=== PATIENT | male | born 1980 | race Caucasian/White ===

== ENCOUNTER 2016-09-02 08:06 | Inpatient (IN) | payer OTHER ==
[2016-09-02] VITALS (7 sets, daily range): BP systolic 115–152; BP diastolic 65–86
[~2016-09-02] VITALS: Ht 152.4 cm; Wt 55.8 kg
--- NOTE | ~2016-09-02 | EKG ---
[place], [place] ELECTROCARDIOGRAM REPORT NAME: VELASQUEZ IRBY UNIT #: [id number] ROOM: [facility] DOCTOR: GABRIELLA BAILEY MD BIRTHDATE: [birth year] DOS: 09/02/2016 TIME OF STUDY: 10:19 a.m. INTERPRETATION: Sinus tachycardia with rate 115. Low voltage in standard limb leads. Rightward axis. Left atrial enlargement. Abnormal EKG. GABRIELLA BAILEY MD CM:EKGRPT:ELECTROCARDIOGRAM REPORT 1702 1717 GABRIELLA BAILEY MD
[~2016-09-02 08:06] MED LIST: ACETAMINOPHEN-H1 TA2 PO; AMLODIPINE BESYL5 MG PO; AMOXICILLIN500 MG PO; ANAPROX DS550 MG PO; ATIVAN0.5 MG PO; AUGMENTIN 875 M1 TAB PO; BACTRIM DS 8001 TA1 PO; BENTYL10 MG PO; CELEXA10 MG PO; CEPHALEXIN500 M1 PO; CIPRO500 MG PO; CIPROFLOXACIN500 MG PO; CLARITIN10 MG PO; CLINDAMYCIN HC300 MG PO; COMPAZINE10 MG PO; Cleocin150 MG PO; DOXYCYCLINE100 M3 PO; FLAGYL500 MG PO; FLEXERIL10 MG PO; FLONASE0.05 MG/AC NS; GABAPENTIN800 MG PO; HUMALOG100 U/ML SC; HUMULIN N100 U/ML SC; HUMULIN R100 U/ML SC; K-DUR20 MEQ PO; KEFLEX500 M1 PO; LANTUS100 U/ML SC; LEVAQUIN750 M1 PO; LISINOPRIL5 MG PO; LOMOTIL 0.025 M1 TA1 PO; LOMOTIL 0.025 M1 TAB PO; MOTRIN800 MG PO; NEURONTIN800 MG PO; NOVOLOG FLEX100 U/ML SC; NOVOLOG MIX 70/10 ML SC; PHENERGAN12.5 M1 PO; PHENERGAN25 M1 PO; PHENERGAN25 MG RC; PRILOSEC20 MG PO; PROTONIX40 M1 PO; Phenergan25 MG PO; REGLAN; REGLAN PO; REGLAN10 MG PO; ROBAXIN750 MG PO; TRAMADOL HCL50 MG PO; TRANSDERM0.33 MG/24 TD; ULTRAM50 MG PO; VICODIN 5/500 505 MG PO; ZANTAC150 MG PO; ZITHROMAX Z PA250 MG PO; ZOFRAN ODT4 MG SL; ZOFRAN4 MG PO; ZYRTEC10 MG PO; Zofran4 MG PO; [UNRECOGNIZED DRUG - OTHER] PO
[2016-09-02 08:48] LABS: BASO % 0.4 % (0.0-1.0); EOS % 0.1 % (1.0-4.0); HEMATOCRIT 40.9 % (42.0-52.0); HEMOGLOBIN 13.1 g/dl (14.0-18.0); LYMPH # 1.1 10*3/uL (1.3-4.4); LYMPH % 12.5 % (27.0-41.0); MEAN CELL VOLUME 88.9 fl (80.0-94.0); MEAN CORPUSCULAR HGB 28.5 pg (27.0-31.0); MONO # 0.6 10*3/uL (0.1-1.0); MONO % 7.1 % (3.0-9.0); NEUT # 6.8 10*3/uL (2.3-7.9); NEUT % 79.5 % (47.0-73.0); PLATELET COUNT AUTOMATED 358 10*3/uL (130-400); RED CELL DISTRI WIDTH 13.9 % (0-14.5); WHITE BLOOD COUNT 8.5 10*3/uL (4.8-10.8)
[2016-09-02 08:56] LABS: PROTHROMBIN TIME 10.5 SECONDS (9.0-12.4)
[2016-09-02 09:00] LABS: BILIRUBIN NEGATIVE (NEGATIVE); BLOOD 1+ (NEGATIVE); CLARITY CLEAR (CLEAR); COLOR YELLOW (YELLOW); GLUCOSE 3+ (NEGATIVE); KETONE 3+ (NEGATIVE); LEUKO ESTERASE NEGATIVE (NEGATIVE); NITRITE NEGATIVE (NEGATIVE); PROTEIN 1+ (NEGATIVE); SPECIFIC GRAVITY 1.015 (1.005-1.030); UROBILINOGEN 0.2 E.U./dl (0.2-1.0)
[2016-09-02 09:06] LABS: ALBUMIN 3.6 gm/dl (3.1-4.5); ALKALINE PHOSPHATASE 210 U/L (45-117); BILIRUBIN, TOTAL 0.5 mg/dl (0.2-1.0); BUN 32 mg/dl (7-24); C-REACTIVE PROTEIN 2.33 MG/DL (0-0.3); CARBON DIOXIDE 17 mmol/L (21-32); CHLORIDE 96 mmol/L (98-107); CKMB 1.2 ng/ml (0.5-3.6); CPK 47 U/L (39-308); EST GLOM FILT AFRICAN AMERICAN 56 ml/min; MAGNESIUM 2.7 mg/dL (1.5-2.1); POTASSIUM 4.8 mmol/L (3.5-5.1); SGOT/AST 16 IU/L (3-35); SGPT/ALT 27 U/L (12-78); SODIUM 135 mmol/L (136-145); TOTAL PROTEIN 8.6 gm/dL (6.4-8.2)
[2016-09-02 09:10] LABS: GLUCOSE 653 mg/dL (65-99); TROPONIN I < 0.015 ng/ml (<0.045)
[2016-09-02 09:15] LABS: URINE REFLEX COMMENT YES (NO); WBC 0-2 wbc/hpf (0-5)
[2016-09-02 12:25] LABS: CKMB 1.1 ng/ml (0.5-3.6); CPK 42 U/L (39-308)
[2016-09-02 12:32] LABS: TROPONIN I < 0.015 ng/ml (<0.045)
[2016-09-02 15:45] LABS: URINE AMPHETAMINES < 1000 (1000ng/ml); URINE BARBITURATES < 200 (200ng/ml); URINE COCAINE > 300 (300ng/ml)
[2016-09-02 18:02] LABS: BUN 28 mg/dl (7-24); CARBON DIOXIDE 21 mmol/L (21-32); CHLORIDE 115 mmol/L (98-107); CKMB 0.8 ng/ml (0.5-3.6); CPK 44 U/L (39-308); EST GLOM FILT AFRICAN AMERICAN > 60 ml/min; GLUCOSE 137 mg/dL (65-99); POTASSIUM 4.2 mmol/L (3.5-5.1)
[2016-09-02 18:05] LABS: SODIUM 148 mmol/L (136-145); TROPONIN I < 0.015 ng/ml (<0.045)
[2016-09-03] VITALS: BP 120/82
[2016-09-03 04:00] VITALS: BP 135/78
[2016-09-03 05:39] LABS: ALBUMIN 2.8 gm/dl (3.1-4.5); ALKALINE PHOSPHATASE 139 U/L (45-117); BILIRUBIN, TOTAL 0.3 mg/dl (0.2-1.0); BUN 23 mg/dl (7-24); CARBON DIOXIDE 23 mmol/L (21-32); CHLORIDE 112 mmol/L (98-107); CHOLESTEROL 191 mg/dL (<200); EST GLOM FILT AFRICAN AMERICAN > 60 ml/min; GLUCOSE 238 mg/dL (65-99); HDL CHOLESTEROL 37 mg/dl (40-60); LDL CHOLESTEROL 126 mg/dL (9-159); PHOSPHOROUS 1.8 mg/dL (2.5-4.9); POTASSIUM 3.9 mmol/L (3.5-5.1); SGOT/AST 15 IU/L (3-35); SGPT/ALT 19 U/L (12-78); SODIUM 144 mmol/L (136-145); TOTAL PROTEIN 6.6 gm/dL (6.4-8.2); TRIGLYCERIDES 139 mg/dl (<150); VLDL CHOLESTEROL 28 mg/dL (6-40)
[2016-09-03 05:54] LABS: BASO # 0.1 10*3/uL (0.0-0.1); BASO % 0.5 % (0.0-1.0); EOS # 0.2 10*3/uL (0.0-0.4); EOS % 1.8 % (1.0-4.0); LYMPH # 2.6 10*3/uL (1.3-4.4); LYMPH % 20.7 % (27.0-41.0); MEAN CELL VOLUME 89.6 fl (80.0-94.0); MEAN CORPUSCULAR HGB CONC 31.2 g/dl (33.0-37.0); MEAN PLATELET VOLUME 10.6 fl (9.6-12.3); MONO % 7.7 % (3.0-9.0); NEUT # 8.5 10*3/uL (2.3-7.9); NEUT % 69.1 % (47.0-73.0); PLATELET COUNT AUTOMATED 348 10*3/uL (130-400); RED BLOOD COUNT 3.86 10*6/uL (4.50-5.90); RED CELL DISTRI WIDTH 14.2 % (0-14.5); WHITE BLOOD COUNT 12.3 10*3/uL (4.8-10.8)
[2016-09-03 06:36] LABS: HEMATOCRIT 34.6 % (42.0-52.0); HEMOGLOBIN 10.8 g/dl (14.0-18.0)
[2016-09-03 07:17] LABS: HEMOGLOBIN A1c 10.4 % (4.8-5.6)
[2016-09-03 08:00] VITALS: BP 140/76
[2016-09-03 08:03] LABS: FOLIC ACID 16.99 ng/mL (>5.38); VITAMIN D, 25-HYDROXY 27.6 ng/mL (30-100)
[2016-09-03 12:00] VITALS: BP 130/70
== END 2016-09-03 17:31 | disposition left against medical advice (07) | DRG 682 ==
LOC: ED 08:06 → EDHOLD 10:07 → ICCU 10:40 → 5E 09-03 12:44
PROVIDERS: Emergency Medicine; Internal Medicine
DX: N17.9 Acute kidney failure, unspecified (principal); E10.10 Type 1 diabetes mellitus with ketoacidosis without coma; E87.8 Other disorders of electrolyte and fluid balance, not elsewhere classified; K31.84 Gastroparesis; L03.116 Cellulitis of left lower limb; F33.9 Major depressive disorder, recurrent, unspecified; E10.42 Type 1 diabetes mellitus with diabetic polyneuropathy; L02.612 Cutaneous abscess of left foot; E86.0 Dehydration; E10.43 Type 1 diabetes mellitus with diabetic autonomic (poly)neuropathy; F14.10 Cocaine abuse, uncomplicated; Z53.21 Procedure and treatment not carried out due to patient leaving prior to being seen by health care provider; K02.9 Dental caries, unspecified; N18.9 Chronic kidney disease, unspecified; Z90.49 Acquired absence of other specified parts of digestive tract; Z83.3 Family history of diabetes mellitus; Z87.01 Personal history of pneumonia (recurrent); Z82.49 Family history of ischemic heart disease and other diseases of the circulatory system; Z91.19 Patient's noncompliance with other medical treatment and regimen; Z80.9 Family history of malignant neoplasm, unspecified

== ENCOUNTER → 2016-09-06 | Outpatient (CLI) | payer OTHER ==
[~2016-09-06] MED LIST changes: +LEVOFLOXACIN750 M2 PO; +SMZ-TMP 400 MG-1 TAB PO
== END | disposition home or self-care (01) ==
LOC: RESCLI 03:55
DX: E10.9 Type 1 diabetes mellitus without complications (principal); I10 Essential (primary) hypertension; L03.90 Cellulitis, unspecified; G62.9 Polyneuropathy, unspecified; R00.0 Tachycardia, unspecified; M79.604 Pain in right leg; Z72.0 Tobacco use; Z90.49 Acquired absence of other specified parts of digestive tract

== ENCOUNTER 2016-09-08 14:51 | Inpatient (IN) | payer OTHER ==
[~2016-09-08] VITALS: Ht 165.1 cm; Wt 59.0 kg
--- NOTE | ~2016-09-08 | WRIGHTHP ---
[place], [place] PATIENT HISTORY AND PHYSICAL EXAM NAME: VELASQUEZ IRBY UNIT #: [id number] ROOM: H2014 DOCTOR: REGAN OLIVERA DO BIRTHDATE: [birth year] DOS: 09/08/2016 The patient left AMA from the emergency room and was never admitted as an inpatient. REGAN OLIVERA DO CM:PHYS:PATIENT HISTORY AND PHYSICAL EXAMINATION 1758 15 REGAN OLIVERA DO 09/08/16 181 interface
[~2016-09-08 14:51] MED LIST changes: -LEVOFLOXACIN750 M2 PO; -SMZ-TMP 400 MG-1 TAB PO
[2016-09-08 15:20] VITALS: BP 124/80
[2016-09-08] MEDS ORDERED: LEVOFLOXACIN750 M2 PO (15:20)
[2016-09-08] MEDS ORDERED: SMZ-TMP 400 MG-1 TAB PO (15:20)
[2016-09-08 15:53] LABS: BASO % 0.3 % (0.0-1.0); EOS # 0.3 10*3/uL (0.0-0.4); EOS % 3.8 % (1.0-4.0); HEMATOCRIT 39.2 % (42.0-52.0); HEMOGLOBIN 12.6 g/dl (14.0-18.0); LYMPH # 1.7 10*3/uL (1.3-4.4); LYMPH % 22.4 % (27.0-41.0); MEAN CELL VOLUME 87.9 fl (80.0-94.0); MEAN CORPUSCULAR HGB 28.3 pg (27.0-31.0); MEAN CORPUSCULAR HGB CONC 32.1 g/dl (33.0-37.0); MONO # 0.8 10*3/uL (0.1-1.0); MONO % 10.6 % (3.0-9.0); NEUT # 4.6 10*3/uL (2.3-7.9); NEUT % 62.4 % (47.0-73.0); PLATELET COUNT AUTOMATED 319 10*3/uL (130-400); RED BLOOD COUNT 4.46 10*6/uL (4.50-5.90); RED CELL DISTRI WIDTH 13.8 % (0-14.5); WHITE BLOOD COUNT 7.4 10*3/uL (4.8-10.8)
[2016-09-08 16:08] LABS: ALBUMIN 3.4 gm/dl (3.1-4.5); ALKALINE PHOSPHATASE 189 U/L (45-117); BILIRUBIN, TOTAL 0.2 mg/dl (0.2-1.0); BUN 15 mg/dl (7-24); CARBON DIOXIDE 29 mmol/L (21-32); CHLORIDE 93 mmol/L (98-107); EST GLOM FILT AFRICAN AMERICAN > 60 ml/min; POTASSIUM 4.7 mmol/L (3.5-5.1); SGOT/AST 13 IU/L (3-35); SGPT/ALT 21 U/L (12-78); SODIUM 130 mmol/L (136-145); TOTAL PROTEIN 7.9 gm/dL (6.4-8.2)
[2016-09-08 16:10] LABS: GLUCOSE 506 mg/dL (65-99)
== END 2016-09-08 17:59 | disposition left against medical advice (07) | DRG 638 ==
LOC: ED 14:51 → EDHOLD 17:12
PROVIDERS: Nurse Practitioner Family
DX: E10.65 Type 1 diabetes mellitus with hyperglycemia (principal); K22.10 Ulcer of esophagus without bleeding; K31.84 Gastroparesis; E10.43 Type 1 diabetes mellitus with diabetic autonomic (poly)neuropathy; S91.302A Unspecified open wound, left foot, initial encounter; F17.200 Nicotine dependence, unspecified, uncomplicated; Z53.21 Procedure and treatment not carried out due to patient leaving prior to being seen by health care provider; G89.29 Other chronic pain; M54.5 Low back pain; F32.9 Major depressive disorder, single episode, unspecified; Z83.3 Family history of diabetes mellitus; Z82.49 Family history of ischemic heart disease and other diseases of the circulatory system; Z90.49 Acquired absence of other specified parts of digestive tract; Z79.4 Long term (current) use of insulin; Z91.14 Patient's other noncompliance with medication regimen

== ENCOUNTER 2016-09-10 17:59 | Emergency (ER) | payer OTHER ==
[~2016-09-10] VITALS: Ht 165.1 cm; Wt 59.0 kg
[~2016-09-10 17:59] MED LIST changes: +LEVOFLOXACIN750 M2 PO; +SMZ-TMP 400 MG-1 TAB PO
[2016-09-10 18:15] LABS: BASO % 0.3 % (0.0-1.0); EOS # 0.4 10*3/uL (0.0-0.4); EOS % 2.8 % (1.0-4.0); HEMATOCRIT 41.2 % (42.0-52.0); HEMOGLOBIN 13.4 g/dl (14.0-18.0); IG # 0.1 10*3/uL (0.0-0.1); LYMPH # 2.7 10*3/uL (1.3-4.4); LYMPH % 19.9 % (27.0-41.0); MEAN CELL VOLUME 86.9 fl (80.0-94.0); MEAN CORPUSCULAR HGB 28.3 pg (27.0-31.0); MEAN CORPUSCULAR HGB CONC 32.5 g/dl (33.0-37.0); MONO # 1.1 10*3/uL (0.1-1.0); MONO % 7.9 % (3.0-9.0); NEUT # 9.2 10*3/uL (2.3-7.9); NEUT % 68.7 % (47.0-73.0); PLATELET COUNT AUTOMATED 404 10*3/uL (130-400); RED BLOOD COUNT 4.74 10*6/uL (4.50-5.90); RED CELL DISTRI WIDTH 13.6 % (0-14.5); WHITE BLOOD COUNT 13.4 10*3/uL (4.8-10.8)
[2016-09-10 18:30] LABS: ALBUMIN 3.7 gm/dl (3.1-4.5); ALKALINE PHOSPHATASE 203 U/L (45-117); BILIRUBIN, TOTAL 0.3 mg/dl (0.2-1.0); BUN 19 mg/dl (7-24); CARBON DIOXIDE 29 mmol/L (21-32); CHLORIDE 96 mmol/L (98-107); EST GLOM FILT AFRICAN AMERICAN > 60 ml/min; GLUCOSE 145 mg/dL (65-99); POTASSIUM 4.4 mmol/L (3.5-5.1); SGOT/AST 10 IU/L (3-35); SGPT/ALT 18 U/L (12-78); SODIUM 136 mmol/L (136-145); TOTAL PROTEIN 8.4 gm/dL (6.4-8.2)
[2016-09-10] MEDS ORDERED: MIRALAX POWDER17 G1 PO (19:07)
[2016-09-10 19:09] VITALS: BP 105/75
== END 2016-09-10 19:21 | disposition home or self-care (01) ==
LOC: ED 17:59
PROVIDERS: Nurse Practitioner Family
DX: K59.00 Constipation, unspecified (principal); R03.0 Elevated blood-pressure reading, without diagnosis of hypertension; F17.200 Nicotine dependence, unspecified, uncomplicated; Z79.4 Long term (current) use of insulin; Z90.49 Acquired absence of other specified parts of digestive tract

== ENCOUNTER 2016-09-13 16:38 | Inpatient (IN) | payer OTHER ==
[~2016-09-13] VITALS: Ht 165.1 cm; Wt 59.0 kg
--- NOTE | ~2016-09-13 | CON ---
[place], [place] REPORT OF CONSULTATION NAME[id number] UNIT #: [id number] ROOM: 419 DOCTOR: STAS GEORGES MD BIRTHDATE: [birth year] DOS: 09/14/2016 CHIEF COMPLAINT: Right flank pain. REASON FOR CONSULT: Wound. HISTORY OF PRESENT ILLNESS: This is a 35-year-old man who presented to the ER for right flank pain. He has history of type 1 diabetes mellitus and chronic pain medication abuse and IV drug abuse in the past with noncompliance with medication treatment and history of leaving the hospital multiple times against medical advice, now he is coming in with abdominal pain and constipation. He had a CT of the abdomen showing a 2 mm right distal ureteral calcification. He is currently homeless and is living in [address]. He had been out of his insulin medication and had high blood sugars. He was admitted and had right flank pain with dysuria and foul smelling urine and some nausea. He was started on empiric broad spectrum antibiotics and ID was consulted. He also has left Achilles tendon ulcer with injury to the tendon, needing repair several months ago and had been on IV antibiotics under the care of [facility] for which he had received about 4 weeks of IV antibiotics in the custodial and PICC line was removed, but he did not follow up with them after that. He went to resident clinic here and was given prescriptions for antibiotics, which he did not take. He left the hospital against medical advice on his previous visit to the ER on 09/10/2016. Currently, he is feeling better. No fevers, chills, vomiting, nausea. PAST MEDICAL HISTORY: History of type 1 diabetes, cellulitis of the foot, chronic kidney disease, cocaine abuse, diabetic gastroparesis, multiple history of DKA episodes, esophageal ulcer, IV drug use history, hypertriglyceridemia, noncompliance with medications, major depressive disorder, avulsion fracture of calcaneum. PAST SURGICAL HISTORY: Chest tubes, cholecystectomy, EGD ____ tonsillectomy. SOCIAL HISTORY: Cocaine abuse, IV drug abuse, tobacco abuse. Does not drink alcohol. FAMILY HISTORY: Mother has diabetes. Father has coronary artery disease. ALLERGIES: No known drug allergies. HOME MEDICATIONS: Which he is noncompliant with were reviewed. CURRENT INPATIENT MEDICATIONS: Reviewed. REVIEW OF SYSTEMS: A 14-review of systems otherwise negative unless otherwise specified in the HPI. PHYSICAL EXAMINATION: VITAL SIGNS: Showed temperature of 98.6, heart rate 77, blood pressure 128/79, respiratory rate of 20, pulse of 100 on room air. [place], [place] REPORT OF CONSULTATION NAME: VELASQUEZ IRBY UNIT #: [id number] ROOM: 419 DOCTOR: STAS GEORGES MD BIRTHDATE: [birth year] GENERAL APPEARANCE: Awake, alert, oriented to time, place, and person, in no acute distress. HEENT: Oral cavity moist. NECK: Supple, no JVD, no lymphadenopathy. HEART: Regular rate and rhythm. S1, S2 normal. No murmurs, gallops or rubs. LUNGS: Clear bilaterally. ABDOMEN: Soft, nontender, nondistended. Bowel sounds heard. EXTREMITIES: Left lower extremity with the posterior Achilles tendon site with surgical sutures, no drainage, no purulence, dry, clean and intact. No surrounding cellulitis. SKIN: No rashes, ulcers or lesions. LABORATORY DATA: Reviewed. WBC of 14.9, hemoglobin 10.4, platelets 358. Chemistry showing BUN of 12, creatinine of 1.51, hemoglobin A1c of 10.7. MRI of the ankle showing postsurgical changes with tear of the distal Achilles tendon, soft tissue ulcerations suspected soft tissue infection in the soft tissues posterior to calcaneal tuberosity ulcer cavity touches the posterior cortical margin of the calcaneum with edema suggestive of osteomyelitis. Urinalysis reviewed. WBC too numerous to count, bacteria 2+. Renal ultrasound showed no hydronephrosis. Abdomen CT from 09/10/2016 shows nephrocalcinosis 2 mm distal ureteral calcification, posterior bladder calcifications. Past wound cultures had shown MRSA, it was from 11/18/2015. ASSESSMENT AND PLAN: 1. Possible chronic osteomyelitis of the left calcaneum, status post 6 weeks of intravenous antibiotics from outside hospital. We will obtain outside medical records, his C-reactive protein is only 2. We will obtain sed rate also and follow it along. I would stop intravenous vancomycin and intravenous Zosyn at this point. He does not have any active draining wounds to obtain a culture from. Would have to compare a previous imaging and inflammatory markers to come to a decision about treating him again with intravenous antibiotics. This osteomyelitis possibly is residual changes in the imaging from previous treatment, have to compare and see what he had been treated with in the past to see if he needs another course of intravenous antibiotics. He had Achilles tendon rupture, which needed surgery and had hardware in there, which he ruptured because of noncompliance and the hardware had to be removed and the incision was again sutured as much as repair that could be done was done by the previous surgeon, Dr. Liliana Ulloa is also following. His inflammatory markers should be repeated and we need to obtain records from outside hospital. 2. Nephrocalcinosis with concern for urinary tract infection. He has a nonobstructing stone without evidence of hydronephrosis. He had pyuria, but at that time, he had diabetic ketoacidosis. I would considering these two concerns, I would put him on a very low dose of Bactrim for chronic suppression. One double strength once daily given his chronic kidney disease and wait for the results of the inflammatory markers and records from outside hospital. Thank you for this consult. I will continue to follow. [place], [place] REPORT OF CONSULTATION NAME: VELASQUEZ IRBY UNIT #: [id number] ROOM: 419 DOCTOR: STAS GEORGES MD BIRTHDATE: [birth year] STAS GEORGES MD CM:CONSTR:REPORT OF CONSULTATION 1706 09/15/16 0416 interface
--- NOTE | ~2016-09-13 | EKG ---
[place], [place] ELECTROCARDIOGRAM REPORT NAME: VELASQUEZ IRBY UNIT #: [id number] ROOM: 419 DOCTOR: GABRIELLA BAILEY MD BIRTHDATE: [birth year] DOS: 09/13/2016 TIME: 17:02 p.m. FINDINGS: 1. Sinus tachycardia with low voltage in the standard limb leads. 2. Indeterminant axis. 3. Biatrial enlargement. 4. Nonspecific T-wave flattening. 5. Abnormal electrocardiogram. GABRIELLA BAILEY MD CM:EKGRPT:ELECTROCARDIOGRAM REPORT 02 54 GABRIELLA BAILEY MD
--- NOTE | ~2016-09-13 | WRIGHTHP ---
[place], [place] PATIENT HISTORY AND PHYSICAL EXAM NAME[id number] UNIT #: [id number] ROOM: 419 DOCTOR: JAXSON SANDHU DPM BIRTHDATE: [birth year] DOS: 09/14/2016 ROOM NUMBER: [id number]. HISTORY OF PRESENT ILLNESS: The patient seen at bedside chief complaint of both lower extremities, more so impressive ____ left one. He complains of a drop foot on his right for approximately 2 years. With respect to his left foot he relates a history ____ confusion and slightly he appears to be ____ poor historian or he states he was in ER here about 2 months ago where he states that he has pain and problems, but he states that the ER misdiagnosed him. Subsequently, he went to [facility] and from what he told me he indicated that he was told that he had an avulsion fracture of his posterior calcaneus. Supposedly, he was seen in the ER there and they referred him ____ was seen and taken care ____ apparently did a surgery that consisted of a reattachment of what appeared to be an avulsion fracture of the posterior aspect of the calcaneus on the left side. Subsequently, the patient got infected and then returned back to [place] where ____ has been to get the hardware and ____ reattached or he reattached the tendon, but the patient says he did not think so on the left posterior side; however, he ended up from what I understand in the Emergency Room here sick and as an outpatient, he went to the ER on 09/10/2016 with symptoms of pain. This started several days before that. Based on the medical records, it seems like he has had some social issues in terms of not having a place to stay and additionally he is having a bowel and urine issues as well from the previous notes. Also, according to the medical record, it appears that he was seen and the patient sees ____ who was managing his condition, but that appears like he has missed most of his appointments and it sounds like there has been past medical history with this gentleman being somewhat ____. He came to the hospital on 09/13/2016 with what sounded like a right-sided pain. I was consulted to look at his left lower extremity. PAST MEDICAL HISTORY: This patient is a diabetic. It sounds like he has been noncompliant. Sounds like he has some gastroparesis associated with his type 1 diabetic ketoacidosis associated with diabetes, esophageal ulcer, chronic noncompliance with medical treatment, hyperglycemia, former IV drug user major depressive ____. PAST SURGICAL HISTORY: He has had a left foot surgery done by ____ sounds like twice right chest tube placement for pneumothorax, history of cholecystectomy, esophagogastroduodenoscopy was performed, history of tonsillectomy. SOCIAL HISTORY: The patient does not drink alcohol and drug use and dependence of the chronic nature of IV drug use and tobacco use. FAMILY HISTORY: Mother has type 2 diabetes. Father at age 55 from myocardial infarction. Family history of cancer, diabetes, hypertension as well as myocardial infarction. ALLERGIES: No known drug allergies. HOME MEDICATIONS: Gabapentin, insulin, lisinopril. [place], [place] PATIENT HISTORY AND PHYSICAL EXAM NAME: VELASQUEZ IRBY UNIT #: [id number] ROOM: [facility] DOCTOR: JAXSON SANDHU DPM BIRTHDATE: [birth year] PHYSICAL EXAMINATION: ____: His pulses are intact, 2/4 DP, PT bilaterally. Good cap fill time. NEUROLOGICAL: He has a loss of protective sensation secondary to diabetic peripheral neuropathy. DERMATOLOGIC: On the posterior aspect of left lower extremity, he has a wound from a previous surgery site. The wound appears to be approximately a 6 cm or so in length. There is a dark eschar. It is not well coapted but there is gapping in the area. There is some peripheral erythema, inflammation. The proximal and distal sutures are intact. It seems like the central area is not. There is no evidence of drainage; undermining or tunneling that can be identified. There is a central necrosis with a dark eschar, but appears to be well contained and again there is no gross purulence or drainage identifiable. On the left posterior heel. The edema is just minimally around the surgical site itself. There is no foul odor identified. MUSCULOSKELETAL: He has a drop foot on his right. On his left he has no plantar flexion or minimal plantar flexion strength consistent of tear or detachment of the Achilles tendon, left. Orthopedic exam, he had previous avulsion fracture. I cannot find the original injury, but could see the postoperative images with the hardware in the posterior heel and then when it was taken out, it appears that there was nothing in the calcaneus at the time and probably helping him respond well this time while he is receiving IV vancomycin. IMPRESSION: Possible infection of the left posterior leg. He has a drop foot on the right. He has an open wound dehiscence on the left. PLAN: Evaluation and management. ____ the patient is a very poor historian trying to put the story together. I admitted him and have Betadine solution dry dressings applied daily to his wounds. I will order MRI to see if the Achilles tendon is attached to. ____ signs of osteomyelitis and/or soft tissue injury to this area or infection. He came in the hospital with elevated white blood count at 21,000 I believe it was, but that is not consistent when I see clinically from his ____, it does not match much because of the scar infection that he may be having infection elsewhere. ____ severe except for sepsis, urinary tract infection, cellulitis, diabetic ulcer, left lower leg, but I do not think the infection or the impressive part of this infection is coming from his left posterior leg. We will await for followup on MRI to make determination if in fact it does appear to be infected, we will go ahead and perform incision, drainage, and debridement for cultures, biopsies, but my clinical hunch is that infection is coming from elsewhere and his foot is relatively stable and ____ MRI dictate and I will proceed from here. Meantime will keep it nonweightbearing, Betadine dry dressing on his left lower extremity ____. [place], [place] PATIENT HISTORY AND PHYSICAL EXAM NAME: VELASQUEZ IRBY Lev UNIT #: [id number] ROOM: 419 DOCTOR: JAXSON SANDHU DPM BIRTHDATE: [birth year] JAXSON SANDHU DPM CM:HISPHYS:PATIENT HISTORY AND PHYSICAL EXAMINATION 1422 1640 JAXSON SANDHU DPM 09/14/16 1641 interface
--- NOTE | ~2016-09-13 | PR ---
[place], [place] PROGRESS NOTE NAME: VELASQUEZ IRBY UNIT #: [id number] ROOM: 419 DOCTOR: STAS GEORGES MD BIRTHDATE: [birth year] DOS: 09/15/2016 REASON FOR FOLLOWUP: Left Achilles tendon wound with evidence of calcaneum osteomyelitis. SUBJECTIVE: The patient is feeling better and wants to go home. No fever, no acute events overnight. REVIEW OF SYSTEMS: Review of systems otherwise negative unless specified in the HPI. PHYSICAL EXAMINATION: VITAL SIGNS: Showed a temperature of 98.2, heart rate of 92, blood pressure 153/85, respiration rate of 20, pulse ox of 97 on room air. GENERAL APPEARANCE: Awake, alert, oriented to time, place and person. No acute distress. HEENT: Oral cavity moist. NECK: Supple, no JVD, no lymphadenopathy. HEART: Regular rate and rhythm. S1, S2 normal. No murmurs, gallops or rubs. LUNGS: Clear to auscultation. Equal air entry bilaterally. ABDOMEN: Soft, nontender, nondistended. Bowel sounds heard. EXTREMITIES: Left lower extremity with wound dressing. LABORATORY DATA: Reviewed. WBC of 11, hemoglobin of 10.7, platelets 361. Chemistry showing BUN of 13, creatinine of 1.12. ASSESSMENT AND PLAN: Left Achilles tendon injury, status post repair with evidence of chronic osteomyelitis of calcaneum. He had 6 weeks of IV antibiotics for [facility]. He finished that. He has not been following up with them after that. I would continue him on chronic supression with oral Bactrim 1 double strength once daily just for his creatinine. His sed rate is still elevated at 50. Plan for 2 weeks of per oral antibiotics, follow up with myself in 2 weeks' time to repeat labs and to follow up for resolution of the symptoms of osteomyelitis. Recommendations conveyed to the primary team. Okay for discharge home with oral Bactrim 1 double strength once daily. [place], [place] PROGRESS NOTE NAME: VELASQUEZ IRBY Lev UNIT #: [id number] ROOM: 419 DOCTOR: STAS GEORGES MD BIRTHDATE: [birth year] STAS GEORGES MD CM:PNTRANS 1656 1500 STAS GEORGES MD 09/16/16 1501 interface
[~2016-09-13 16:38] MED LIST changes: +MIRALAX POWDER17 G1 PO
[2016-09-13 16:47] VITALS: BP 138/90
[2016-09-13 17:11] LABS: BASO % 0.2 % (0.0-1.0); EOS % 0.1 % (1.0-4.0); HEMATOCRIT 40.2 % (42.0-52.0); HEMOGLOBIN 13.3 g/dl (14.0-18.0); IG # 0.1 10*3/uL (0.0-0.1); LYMPH # 1.6 10*3/uL (1.3-4.4); LYMPH % 7.6 % (27.0-41.0); MEAN CELL VOLUME 86.3 fl (80.0-94.0); MEAN CORPUSCULAR HGB 28.5 pg (27.0-31.0); MEAN CORPUSCULAR HGB CONC 33.1 g/dl (33.0-37.0); MEAN PLATELET VOLUME 9.7 fl (9.6-12.3); MONO # 1.3 10*3/uL (0.1-1.0); MONO % 6.2 % (3.0-9.0); NEUT # 17.9 10*3/uL (2.3-7.9); NEUT % 85.3 % (47.0-73.0); PLATELET COUNT AUTOMATED 404 10*3/uL (130-400); RED BLOOD COUNT 4.66 10*6/uL (4.50-5.90); RED CELL DISTRI WIDTH 13.8 % (0-14.5)
[2016-09-13 17:21] LABS: PROTHROMBIN TIME 10.7 SECONDS (9.0-12.4)
[2016-09-13 17:27] LABS: ALBUMIN 3.5 gm/dl (3.1-4.5); ALKALINE PHOSPHATASE 176 U/L (45-117); BILIRUBIN, TOTAL 0.5 mg/dl (0.2-1.0); BUN 14 mg/dl (7-24); C-REACTIVE PROTEIN 2.07 MG/DL (0-0.3); CARBON DIOXIDE 24 mmol/L (21-32); CHLORIDE 97 mmol/L (98-107); EST GLOM FILT AFRICAN AMERICAN 57 ml/min; GLUCOSE 315 mg/dL (65-99); MAGNESIUM 1.9 mg/dL (1.5-2.1); POTASSIUM 4.1 mmol/L (3.5-5.1); SGOT/AST 13 IU/L (3-35); SGPT/ALT 16 U/L (12-78); SODIUM 135 mmol/L (136-145); TOTAL PROTEIN 7.8 gm/dL (6.4-8.2)
[2016-09-13 17:31] LABS: TROPONIN I < 0.015 ng/ml (<0.045)
[2016-09-13 18:09] VITALS: BP 137/89
[2016-09-13 18:14] LABS: BILIRUBIN NEGATIVE (NEGATIVE); BLOOD 3+ (NEGATIVE); CLARITY CLOUDY (CLEAR); COLOR YELLOW (YELLOW); GLUCOSE 3+ (NEGATIVE); KETONE 3+ (NEGATIVE); LEUKO ESTERASE 2+ (NEGATIVE); NITRITE NEGATIVE (NEGATIVE); PH 7.5 (5.0-9.0); PROTEIN 2+ (NEGATIVE); UROBILINOGEN 0.2 E.U./dl (0.2-1.0)
[2016-09-13 18:26] LABS: BACTERIA 2+; CALCIUM OXALATE CRYSTALS 1+; EPITHELIAL CELLS 0-2; RBC TNTC rbc/hpf (0-2); URINE REFLEX COMMENT YES (NO); WBC TNTC wbc/hpf (0-5); YEAST 2+
[2016-09-13 18:47] VITALS: BP 145/85
[2016-09-13 19:18] VITALS: BP 115/80
[2016-09-13 20:00] VITALS: BP 136/84
[2016-09-14] VITALS: BP 114/72
[2016-09-14 06:13] LABS: BASO # 0.1 10*3/uL (0.0-0.1); BASO % 0.3 % (0.0-1.0); EOS # 0.2 10*3/uL (0.0-0.4); EOS % 1.2 % (1.0-4.0); IG # 0.1 10*3/uL (0.0-0.1); LYMPH # 1.7 10*3/uL (1.3-4.4); LYMPH % 11.3 % (27.0-41.0); MEAN CELL VOLUME 88.9 fl (80.0-94.0); MEAN CORPUSCULAR HGB 28.3 pg (27.0-31.0); MEAN CORPUSCULAR HGB CONC 31.8 g/dl (33.0-37.0); MEAN PLATELET VOLUME 10.1 fl (9.6-12.3); MONO # 1.4 10*3/uL (0.1-1.0); MONO % 9.5 % (3.0-9.0); NEUT # 11.5 10*3/uL (2.3-7.9); NEUT % 77.2 % (47.0-73.0); PLATELET COUNT AUTOMATED 358 10*3/uL (130-400); RED BLOOD COUNT 3.68 10*6/uL (4.50-5.90); RED CELL DISTRI WIDTH 13.9 % (0-14.5); WHITE BLOOD COUNT 14.9 10*3/uL (4.8-10.8)
[2016-09-14 06:15] LABS: HEMATOCRIT 32.7 % (42.0-52.0); HEMOGLOBIN 10.4 g/dl (14.0-18.0)
[2016-09-14 06:22] LABS: CPK 43 U/L (39-308)
[2016-09-14 06:24] LABS: CKMB < 0.5 ng/ml (0.5-3.6); TROPONIN I < 0.015 ng/ml (<0.045)
[2016-09-14 06:47] LABS: BUN 12 mg/dl (7-24); CARBON DIOXIDE 26 mmol/L (21-32); CHLORIDE 111 mmol/L (98-107); EST GLOM FILT AFRICAN AMERICAN > 60 ml/min; FREE T4 1.01 ng/dl (0.76-1.46); GLUCOSE 51 mg/dL (65-99); HEMOGLOBIN A1c 10.7 % (4.8-5.6); MAGNESIUM 1.9 mg/dL (1.5-2.1); PHOSPHOROUS 3.5 mg/dL (2.5-4.9); POTASSIUM 3.4 mmol/L (3.5-5.1); SODIUM 145 mmol/L (136-145)
[2016-09-14 06:53] LABS: THYROID STIM HORMONE (HS) 0.257 uIU/ml (0.358-4.75)
[2016-09-14 08:00] VITALS: BP 102/61
[2016-09-14 11:44] VITALS: BP 101/69
[2016-09-14 12:13] LABS: CKMB 0.6 ng/ml (0.5-3.6); CPK 45 U/L (39-308); TROPONIN I < 0.015 ng/ml (<0.045)
[2016-09-14 15:59] VITALS: BP 128/79
[2016-09-14 20:00] VITALS: BP 147/86
[2016-09-15] VITALS: BP 119/78
[2016-09-15 06:51] LABS: BASO % 0.3 % (0.0-1.0); EOS # 0.6 10*3/uL (0.0-0.4); EOS % 5.3 % (1.0-4.0); HEMATOCRIT 33.7 % (42.0-52.0); HEMOGLOBIN 10.7 g/dl (14.0-18.0); IG # 0.1 10*3/uL (0.0-0.1); LYMPH # 2.5 10*3/uL (1.3-4.4); LYMPH % 22.7 % (27.0-41.0); MEAN CELL VOLUME 88.7 fl (80.0-94.0); MEAN CORPUSCULAR HGB 28.2 pg (27.0-31.0); MEAN CORPUSCULAR HGB CONC 31.8 g/dl (33.0-37.0); MEAN PLATELET VOLUME 9.8 fl (9.6-12.3); MONO # 0.9 10*3/uL (0.1-1.0); MONO % 8.4 % (3.0-9.0); NEUT # 6.9 10*3/uL (2.3-7.9); NEUT % 62.8 % (47.0-73.0); PLATELET COUNT AUTOMATED 361 10*3/uL (130-400); RED CELL DISTRI WIDTH 13.8 % (0-14.5)
[2016-09-15 07:23] LABS: BUN 13 mg/dl (7-24); CARBON DIOXIDE 27 mmol/L (21-32); CHLORIDE 109 mmol/L (98-107); EST GLOM FILT AFRICAN AMERICAN > 60 ml/min; GLUCOSE 52 mg/dL (65-99); MAGNESIUM 1.9 mg/dL (1.5-2.1); PHOSPHOROUS 3.8 mg/dL (2.5-4.9); POTASSIUM 3.9 mmol/L (3.5-5.1); SODIUM 144 mmol/L (136-145)
[2016-09-15 08:17] VITALS: BP 150/82
[2016-09-15 12:01] VITALS: BP 155/85
[2016-09-15] MEDS ORDERED: LANTUS100 U/ML SC (15:18)
[2016-09-15] MEDS ORDERED: SEPTRA DS 800 M1 TAB PO (15:18)
[2016-09-15] MEDS ORDERED: LISINOPRIL10 M1 PO (15:18)
[2016-09-15] MEDS ORDERED: HUMALOG100 U/ML SC (15:18)
== END 2016-09-15 16:44 | disposition home or self-care (01) | DRG 871 ==
LOC: ED 16:38 → EDHOLD 18:04 → 4E 18:04
PROVIDERS: Internal Medicine; Student in an Organized Health Care Education/Training Program
DX: A41.9 Sepsis, unspecified organism (principal); N17.0 Acute kidney failure with tubular necrosis; K22.10 Ulcer of esophagus without bleeding; E10.65 Type 1 diabetes mellitus with hyperglycemia; F33.9 Major depressive disorder, recurrent, unspecified; L89.899 Pressure ulcer of other site, unspecified stage; N39.0 Urinary tract infection, site not specified; L03.116 Cellulitis of left lower limb; F19.20 Other psychoactive substance dependence, uncomplicated; L02.91 Cutaneous abscess, unspecified; M86.672 Other chronic osteomyelitis, left ankle and foot; L02.619 Cutaneous abscess of unspecified foot; K31.84 Gastroparesis; N20.0 Calculus of kidney; D64.9 Anemia, unspecified; D47.3 Essential (hemorrhagic) thrombocythemia; M54.5 Low back pain; E78.1 Pure hyperglyceridemia; N29 Other disorders of kidney and ureter in diseases classified elsewhere; S81.802A Unspecified open wound, left lower leg, initial encounter; G89.29 Other chronic pain; S86.002A Unspecified injury of left Achilles tendon, initial encounter; F17.200 Nicotine dependence, unspecified, uncomplicated; K02.9 Dental caries, unspecified; E10.43 Type 1 diabetes mellitus with diabetic autonomic (poly)neuropathy; Z79.4 Long term (current) use of insulin; Z90.49 Acquired absence of other specified parts of digestive tract; Z83.3 Family history of diabetes mellitus; Z82.49 Family history of ischemic heart disease and other diseases of the circulatory system; Z80.9 Family history of malignant neoplasm, unspecified; Z79.899 Other long term (current) drug therapy

== ENCOUNTER 2016-10-04 13:40 | Inpatient (IN) | payer OTHER ==
[~2016-10-04] VITALS: Ht 165.1 cm; Wt 57.2 kg
--- NOTE | ~2016-10-04 | PR ---
[place], [place] PROGRESS NOTE NAME: VELASQUEZ IRBY [facility] #: [id number] UNIT #: [id number] ROOM: 525 DOCTOR: ELEUTERIO COULTER DPM BIRTHDATE: [birth year] DOS: 10/06/2016 SUBJECTIVE: The patient presents 1 day postop. The patient had surgical debridement and biopsy performed yesterday by Dr. Sena. The patient states he is having pain with the wound VAC to the surgical site. OBJECTIVE: There is apparent pain to the posterior aspect of the left heel. The patient had a venous Doppler performed yesterday, which was negative for DVT. The posterior splint and VAC are in place. Capillary refill time was normal to all digits of the left lower extremity. ASSESSMENT: Postop bone biopsy and debridement. PLAN: The patient was extremely belligerent. The patient has a history of drug abuse, and stated that he wanted to remove the wound VAC and splint as he could not sleep. The patient stated if it was not removed, he wanted stronger pain medications. Again, the patient has a history of drug abuse, and I discussed with the patient that he should not remove the posterior splint and the wound VAC. It is very important to maintain the current treatment plan to avoid loss of limb and potential loss of life. Again, the patient was extremely belligerent with a history of IV drug abuse. The patient stated he would check himself out of the hospital if pain medication was not increased. The case was discussed via telephone with Dr. Sena. Dr. Sena had ordered Toradol for the patient. The patient is already taking [place] and morphine. I believe the patient will check himself out of the hospital as he has history of extreme noncompliance along with being an IV drug abuser, and the patient is at high risk for loss of limb due to his continued noncompliance. Again, Dr. Sena wrote for followup orders, and the patient will be seen for followup, and again if the patient is not compliant, he has a very high chance of loss of limb. ELEUTERIO COULTER DPM CM:PNTRANS 1213 [id number] ELEUTERIO COULTER DPRadha 10/07/16 0131 interface
--- NOTE | ~2016-10-04 | O ---
[place], [place] OPERATIVE NOTE NAME: VELASQUEZ IRBY UNIT #: [id number] ROOM: [facility] DOCTOR: SANTOS LYONS DPMBANDAR BIRTHDATE: [birth year] DOS: 10/05/2016 SURGEON: Bandar Graham III, DPM ANESTHESIA: General. COURT ORDERLY: Lance Shen DPM. PREOPERATIVE DIAGNOSIS: Osteomyelitis with abscess, left ankle. POSTOPERATIVE DIAGNOSIS: Osteomyelitis with abscess, left ankle. PROCEDURE: I and D with bone debridement, biopsy of left heel. HEMOSTASIS: None. ESTIMATED BLOOD LOSS: 10 mL. MATERIALS: Application of wound VAC at the conclusion of the case. INJECTABLES: Approximately 30 mL of 0.5% Marcaine plain was injected in a local block type fashion at the conclusion of the case. MATERIALS: Wound VAC was applied at the conclusion of the case. FINDINGS: Consistent with preoperative diagnosis. Localized necrotic tissue was debrided and removed. The Achilles tendon was followed proximally and removed. CULTURES: Deep cultures were obtained. Bone was debrided from the posterior calcaneus and sent for both culture as well as biopsy. COMPLICATIONS: None. HISTORY OF PRESENT ILLNESS: This is a 35-year-old male who was seen as a hospital consult for an infected ulceration of the left posterior leg. MRI was performed, which showed signs suspicious for osteomyelitis as well as abscess and soft tissue gas. The patient was treated for an Achilles tendon type surgery in [place] where he left and subsequently became infected requiring admission to a [place] [facility] facility with IV antibiotics; however, the patient left AMA and the PICC line was removed. The patient failed to follow up with his surgeon in [place]. Subsequently, the patient was admitted to [place] with a leukocytosis and localized infection, prompting admission to the hospital. Again, MRI was concerning for soft tissue gas as well as infection. Therefore, the patient was consented for an I and D with bone debridement and biopsy of his left heel. All risks, benefits, complications, procedures, alternatives were discussed and all questions were answered to his apparent satisfaction. The pre, elizabeth, postoperative course was also discussed. The need for compliance is mandatory in order to ensure a satisfactory result. The patient apparently has some drug related history as well. [place], [place] OPERATIVE NOTE NAME: VELASQUEZ IRBY UNIT #: [id number] ROOM: [facility] DOCTOR: SANTOS LYONS DPMBANDAR BIRTHDATE: [birth year] PHYSICAL EXAMINATION: VASCULAR: DP and PT pulses are palpable, CFT within normal limits, mild edema to the posterior left ankle. There is mild surrounding erythema. Localized necrotic tissue was present in the depths of the wound with exposed Achilles tendon as well as exposed bone to his calcaneus. No cellulitis tracking proximally. NEUROLOGIC: Intact protective sensation. ORTHOPEDIC: Muscle strength is maintained. Decreased muscle strength at left secondary to loss of Achilles ____. PROCEDURE IN DETAIL: The patient was brought to the operating room and laid on the table in the prone position. His foot was prepped and draped in the usual sterile fashion. Pneumatic compression device was placed on the contralateral limb for DVT prophylaxis. Antibiotics were being administered on the floor; therefore, no antibiotics were administered preoperatively. Our attention was directed to the posterior aspect of his left heel where again a full-thickness wound was appreciated as well as exposed Achilles tendon and exposed bone. Full thickness excisional debridement of all nonviable tissue was performed to and through to the level of bone. A 4 cm incision was created proximal to the wound in order to remove infected Achilles tendon. The Achilles tendon was sent for pathology specimen. Deep cultures were obtained of the wound. Bone was also debrided and cultured and biopsied from the posterior aspect of his heel. At this time, it appeared that all nonviable infected soft tissue and bone had been removed. We copiously irrigated the foot with approximately 3 liters of sterile saline using cystoscopy tube drainage. At this time, we felt that it was in the patient's best interest to close part of the wound and incision and wound VAC that was remaining. Therefore, at this time, we then proceeded to close part of the wound with 0 Vicryl followed by skin closure with 2-0 Prolene both proximally and distally to the wound. There was good approximation of soft tissues. At this time, we then proceeded to apply a wound VAC to the central aspect of his wound with good suction and seal followed by posterior splint. The patient tolerated the procedure well and left the operating room with neurovascular status intact and vital signs stable. Prognosis for healing is fair as long as the patient is compliant with postoperative course. He will be admitted back to the floor for medicine as well as Infectious Disease followup. [place], [place] OPERATIVE NOTE NAME: VELASQUEZ IRBY UNIT #: [id number] ROOM: [facility] DOCTOR: BANDAR GRAHAM III, DPM BIRTHDATE: [birth year] BANDAR GRAHAM III, DPM CM:OPRECORD:OPERATIVE NOTE 1414 43 BANDAR GRAHAM III, DPM 10/07/16 164 interface
--- NOTE | ~2016-10-04 | CON ---
[place], [place] REPORT OF CONSULTATION [id number] UNIT #: [id number] ROOM: 525 DOCTOR: STAS GEORGES MD BIRTHDATE: [birth year] DOS: 10/07/2016 REASON FOR CONSULTATION: Osteomyelitis of the right foot. CONSULTING PHYSICIAN: Dr. Carter Guerra. HISTORY OF PRESENTING ILLNESS: This is a 35-year-old man who I have known from his previous visits and consultations admitted now with worsening wound on his right heel. He has history of type 1 diabetes mellitus and chronic IV drug abuse and noncompliance with medical treatment in the past. He was admitted with right lower extremity wound, worsening with complications of cellulitis involving his right whole leg. He had debridement by Dr. Sena on 10/06/2016, cultures were obtained and he was placed on empiric antibiotics and ID is consulted for further antibiotic recommendations. The patient still has been using IV drugs and does not want to go to any facility for continued IV antibiotics. He had in the past Achilles tendon ulcer with injury to the tendon of the right foot, needing a repair several months ago and had been on IV antibiotics under Infectious Disease in [facility] subsequently was asked to be on oral antibiotics, oral Bactrim after that for suppression for chronic osteomyelitis. He has not been compliant with oral medications since discharge from there. Now after debridement pathology is showing chronic osteomyelitis. PAST MEDICAL HISTORY: Positive for history of type 1 diabetes, cellulitis of the foot, chronic kidney disease, Achilles tendon rupture, cocaine abuse, IV drug use, diabetic gastroparesis, multiple history of DKA, esophageal ulcer, hypertriglyceridemia, major depressive disorder, avulsion fracture of calcaneum, noncompliance with medications. PAST SURGICAL HISTORY: Chest tubes, multiple debridements, cholecystectomy, EGD and tonsillectomy. SOCIAL HISTORY: Cocaine use, IV drug use. Tobacco abuse. Does not drink alcohol. FAMILY HISTORY: Mother had diabetes. Father had coronary artery disease. ALLERGIES: No known drug allergies. HOME MEDICATIONS AND CURRENT INPATIENT MEDICATIONS: Reviewed. REVIEW OF SYSTEMS: A 14-review of systems otherwise negative unless otherwise specified in the HPI. PHYSICAL EXAMINATION: VITAL SIGNS: Showed temperature of 98.1, heart rate of 101, blood pressure /76, respiratory rate of 18, pulse ox of 99 on room air. GENERAL APPEARANCE: Awake, alert, oriented to time, place and person. No acute distress. Oral cavity: Moist, intact. NECK: Supple, no JVD, no lymphadenopathy. HEART: Regular rate and rhythm. S1, S2 normal. No murmurs, gallops or rubs. [place], [place] REPORT OF CONSULTATION NAME: VELASQUEZ IRBY UNIT #: [id number] ROOM: 525 DOCTOR: STAS GEORGES MD BIRTHDATE: [birth year] LUNGS: Clear to auscultation. Equal air entry bilaterally. ABDOMEN: Soft, nontender, nondistended. Bowel sounds heard. EXTREMITIES: Right lower extremity with a wound VAC and post-surgical dressing. LABORATORY DATA: Reviewed. WBC of 7.7, hemoglobin of 10.2, platelets 389. Chemistry showing BUN of 11, creatinine of 1.10. Microbiology reviewed. Bone cultures showing GPCs in clusters and chains, pairs and gram-negative bacilli and gram positive bacilli. ASSESSMENT AND PLAN: Complicated cellulitis of right lower extremity with chronic osteomyelitis of the right calcaneum after Achilles tendon rupture and avulsion fracture of the calcaneum in the past. Since his biopsies showing early chronic osteo, although he had radiologic evidence of osteomyelitis this is probably osteo. I would only planned for short duration of antibiotics to help him with this complicated cellulitis, currently he is on IV vancomycin and Zosyn. He is not keen on staying in the hospital to get any further IV antibiotics. He wants to leave today. I advised him it is not the best options since the microbiology is still pending to be identified, but he is adamant about leaving and explained the risks of leaving against medical advice including loss of limb and and he expressed understanding. If he wants to leave against medical advice today, I would recommend oral doxycycline 100 mg twice daily with Augmentin 875/125 twice daily for another 14 days and follow up with myself as outpatient to follow up the wound culture results. Otherwise, continue IV antibiotics still wound culture results are back and adjust antibiotics accordingly. Either way I would not send him home with IV antibiotics because of his IV drug use history. If he really wants to go home he has to be switched over to something the best option that available as oral medications. Thank you for this consult Dr. Benmichael Charlie, I will continue to follow. STAS GEORGES MD CM:CONSTR:REPORT OF CONSULTATION 1611 10/08/16 1231 interface
--- NOTE | ~2016-10-04 | CON ---
[place], [place] REPORT OF CONSULTATION NAME[facility] [id number] UNIT #: [id number] ROOM: 525 DOCTOR: SANTOS LYONS DPMKAYA BIRTHDATE: [birth year] DOS: 10/05/2016 TIME OF DICTATION: 11:38 a.m. The patient is a diabetic who HISTORY OF PRESENT ILLNESS: This is a 35-year-old male who presented to the Emergency Room from [facility] Medicine Residency clinic for chief complaint of left-sided flank pain and hardened stools. The patient has been having increased pain to his left heel as well where he states he underwent a surgery approximately a month ago in [place]. The patient states he had been walking on the foot against surgeon recommendations. PAST MEDICAL HISTORY: Significant for diabetes, gastroparesis, avulsion fracture of the calcaneus, chronic kidney disease, depression, IV drug abuser. PAST SURGICAL HISTORY: Significant for chest tube placement, cholecystectomy, EGD, tonsillectomy. SURGICAL HISTORY: Does admit to drug abuse as well as tobacco use. Does not currently drink any alcohol. FAMILY HISTORY: Significant for her mother who has diabetes, age 60. Father at 55 from a heart attack. Family history of cancer, diabetes, hypertension, and [place]. ALLERGIES: No reported allergies. MEDICATIONS: Please refer to medication list. PHYSICAL EXAMINATION: VASCULAR: DP and PT pulses are palpable, CFT within normal limits, mild edema to the posterior aspect of his left heel. DERMATOLOGY: The patient has gross necrotic tissue as well as palpable bone appreciated to the posterior aspect of his left ankle where appears he had a previous surgery. Sutures have been pulled through. Localized again necrotic tissue is present within the wound. The patient has some pain in the posterior calf as well. No cellulitis tracking proximally. No cellulitis or lymphangitis. ASSESSMENT: 1. Diabetes. 2. History of surgery to his left calcaneus with now what appears to be an infection as well as osteomyelitis with exposed tendon. TREATMENT PLANS AND RECOMMENDATIONS: Findings as well as prognosis discussed in detail with the patient. All questions were answered to their apparent satisfaction. This is a 35-year-old male seen at bedside for evaluation regarding an infection to his left calcaneus, status post surgery at an outside facility. Now presents with an acute infection with exposed tendon and bone to [place], [place] REPORT OF CONSULTATION NAME: VELASQUEZ IRBY UNIT #: [id number] ROOM: 525 DOCTOR: KAYA GRAHAM III, DPM BIRTHDATE: [birth year] his left heel. MRI is currently pending. No x-rays have been performed so updated x-rays were performed. Also a venous ultrasound was done as well as he is having some posterior calf pain. Previous MRI done about a month ago did show Achilles rupture with questionable osteomyelitis. We discussed taking him to surgery for a debridement and biopsy with application of wound VAC and incision and drainage. The patient understands the risks. The patient does need to be complaint throughout the postoperative course to ensure satisfactory results. The patient is an IV drug abuser. We will proceed with surgery today. He can be n.p.o. at this time. KAYA GRAHAM III, DPM CM:CONSTR:REPORT OF CONSULTATION 1143 10/06/16 0050 interface
--- NOTE | ~2016-10-04 | PR ---
[place], [place] PROGRESS NOTE NAME: [id number] UNIT #: [id number] ROOM: 525 DOCTOR: DAVID LOMBARDO DPM BIRTHDATE: [birth year] DOS: 10/07/2016 SUBJECTIVE: This patient is seen today 2 days postop debridement, biopsy of the left lower extremity. He has a wound VAC in place, large dressing, and posterior splint. He states his pain is under better control at this time. OBJECTIVE: Large dressing and posterior split is intact. Wound VAC is intact. It is draining a mild to moderate amount of serosanguineous fluid. He is in no apparent distress. Cap refill time is normal to all the digits. ASSESSMENT: Postop bone biopsy debridement, left lower extremity. PLAN: Continue with wound VAC. Continue with antibiotics. The wound VAC can be changed tomorrow. Continue nonweightbearing on the left lower extremity. I discussed with him about the importance of him being compliant because this could be a limb loss situation, or if he gets septic, he could lose his life. DAVID LOMBARDO DPM CM:PNGABRIEL [id number] DAVID LOMBARDO DPM 10/08/16 0451 interface
[~2016-10-04 13:40] MED LIST changes: +LISINOPRIL10 M1 PO; +SEPTRA DS 800 M1 TAB PO
[2016-10-04 13:51] VITALS: BP 168/90
[2016-10-04 14:04] VITALS: BP 146/94
[2016-10-04 14:32] LABS: BASO % 0.3 % (0.0-1.0); EOS # 0.2 10*3/uL (0.0-0.4); EOS % 1.5 % (1.0-4.0); HEMATOCRIT 36.7 % (42.0-52.0); HEMOGLOBIN 11.8 g/dl (14.0-18.0); IG # 0.1 10*3/uL (0.0-0.1); LYMPH # 1.7 10*3/uL (1.3-4.4); LYMPH % 11.5 % (27.0-41.0); MEAN CELL VOLUME 88.4 fl (80.0-94.0); MEAN CORPUSCULAR HGB 28.4 pg (27.0-31.0); MEAN CORPUSCULAR HGB CONC 32.2 g/dl (33.0-37.0); MEAN PLATELET VOLUME 9.7 fl (9.6-12.3); MONO # 0.9 10*3/uL (0.1-1.0); MONO % 6.3 % (3.0-9.0); PLATELET COUNT AUTOMATED 473 10*3/uL (130-400); RED BLOOD COUNT 4.15 10*6/uL (4.50-5.90)
[2016-10-04 14:47] LABS: ALBUMIN 3.1 gm/dl (3.1-4.5); ALKALINE PHOSPHATASE 203 U/L (45-117); BILIRUBIN, TOTAL 0.2 mg/dl (0.2-1.0); BUN 16 mg/dl (7-24); C-REACTIVE PROTEIN 2.77 MG/DL (0-0.3); CARBON DIOXIDE 27 mmol/L (21-32); CHLORIDE 102 mmol/L (98-107); EST GLOM FILT AFRICAN AMERICAN > 60 ml/min; GLUCOSE 240 mg/dL (65-99); MAGNESIUM 2.5 mg/dL (1.5-2.1); POTASSIUM 4.9 mmol/L (3.5-5.1); SGOT/AST 18 IU/L (3-35); SGPT/ALT 18 U/L (12-78); SODIUM 136 mmol/L (136-145); TOTAL PROTEIN 7.9 gm/dL (6.4-8.2)
[2016-10-04 15:31] VITALS: BP 156/100
[2016-10-04 20:00] VITALS: BP 165/85
[2016-10-05] VITALS: BP 101/65
[2016-10-05 06:07] LABS: BASO # 0.1 10*3/uL (0.0-0.1); BASO % 0.6 % (0.0-1.0); EOS # 0.4 10*3/uL (0.0-0.4); EOS % 4.5 % (1.0-4.0); LYMPH # 2.7 10*3/uL (1.3-4.4); LYMPH % 29.7 % (27.0-41.0); MEAN CELL VOLUME 89.1 fl (80.0-94.0); MEAN CORPUSCULAR HGB 27.9 pg (27.0-31.0); MEAN CORPUSCULAR HGB CONC 31.3 g/dl (33.0-37.0); MEAN PLATELET VOLUME 9.9 fl (9.6-12.3); MONO # 0.8 10*3/uL (0.1-1.0); MONO % 8.9 % (3.0-9.0); NEUT # 5.1 10*3/uL (2.3-7.9); PLATELET COUNT AUTOMATED 365 10*3/uL (130-400); RED BLOOD COUNT 3.41 10*6/uL (4.50-5.90); RED CELL DISTRI WIDTH 14.2 % (0-14.5)
[2016-10-05 06:11] LABS: HEMATOCRIT 30.4 % (42.0-52.0); HEMOGLOBIN 9.5 g/dl (14.0-18.0)
[2016-10-05 06:32] LABS: ALBUMIN 2.3 gm/dl (3.1-4.5); BUN 17 mg/dl (7-24); CARBON DIOXIDE 26 mmol/L (21-32); CHLORIDE 110 mmol/L (98-107); CHOLESTEROL 156 mg/dL (<200); EST GLOM FILT AFRICAN AMERICAN > 60 ml/min; MAGNESIUM 1.8 mg/dL (1.5-2.1); PHOSPHOROUS 2.6 mg/dL (2.5-4.9); SGOT/AST 9 IU/L (3-35); SGPT/ALT 12 U/L (12-78); SODIUM 142 mmol/L (136-145); TRIGLYCERIDES 150 mg/dl (<150); VLDL CHOLESTEROL 30 mg/dL (6-40)
[2016-10-05 06:40] LABS: ALKALINE PHOSPHATASE 140 U/L (45-117); BILIRUBIN, TOTAL 0.2 mg/dl (0.2-1.0); FREE T4 0.92 ng/dl (0.76-1.46); HDL CHOLESTEROL 30 mg/dl (40-60); LDL CHOLESTEROL 96 mg/dL (9-159); THYROID STIM HORMONE (HS) 0.526 uIU/ml (0.358-4.75); TOTAL PROTEIN 5.8 gm/dL (6.4-8.2)
[2016-10-05 06:42] LABS: GLUCOSE 37 mg/dL (65-99); POTASSIUM 3.5 mmol/L (3.5-5.1)
[2016-10-05 07:21] LABS: HEMOGLOBIN A1c 10.9 % (4.8-5.6)
[2016-10-05 07:38] LABS: VITAMIN D, 25-HYDROXY 24.9 ng/mL (30-100)
[2016-10-05 07:39] LABS: FOLIC ACID 9.95 ng/mL (>5.38)
[2016-10-05 08:00] VITALS: BP 143/84
[2016-10-05 12:00] VITALS: BP 122/79
[2016-10-05 16:00] VITALS: BP 144/80
[2016-10-05 20:00] VITALS: BP 136/85
[2016-10-06] VITALS: BP 126/74
[2016-10-06 04:00] VITALS: BP 119/78
[2016-10-06 06:49] LABS: BASO # 0.1 10*3/uL (0.0-0.1); BASO % 0.4 % (0.0-1.0); EOS # 0.5 10*3/uL (0.0-0.4); EOS % 3.6 % (1.0-4.0); HEMATOCRIT 31.1 % (42.0-52.0); HEMOGLOBIN 9.7 g/dl (14.0-18.0); LYMPH # 2.3 10*3/uL (1.3-4.4); LYMPH % 16.5 % (27.0-41.0); MEAN CELL VOLUME 90.9 fl (80.0-94.0); MEAN CORPUSCULAR HGB 28.4 pg (27.0-31.0); MEAN CORPUSCULAR HGB CONC 31.2 g/dl (33.0-37.0); MONO # 0.8 10*3/uL (0.1-1.0); MONO % 5.5 % (3.0-9.0); NEUT # 10.3 10*3/uL (2.3-7.9); NEUT % 73.7 % (47.0-73.0); PLATELET COUNT AUTOMATED 402 10*3/uL (130-400); RED BLOOD COUNT 3.42 10*6/uL (4.50-5.90); RED CELL DISTRI WIDTH 14.4 % (0-14.5)
[2016-10-06 07:13] LABS: BUN 14 mg/dl (7-24); CARBON DIOXIDE 30 mmol/L (21-32); CHLORIDE 105 mmol/L (98-107); EST GLOM FILT AFRICAN AMERICAN > 60 ml/min; GLUCOSE 173 mg/dL (65-99); SODIUM 138 mmol/L (136-145)
[2016-10-06 07:14] LABS: POTASSIUM 4.7 mmol/L (3.5-5.1)
[2016-10-06 08:00] VITALS: BP 140/80
[2016-10-06 11:50] VITALS: BP 142/84
[2016-10-06 16:00] VITALS: BP 144/79
[2016-10-06 20:00] VITALS: BP 154/76
[2016-10-07] VITALS: BP 143/89
[2016-10-07 07:34] LABS: BUN 11 mg/dl (7-24)
[2016-10-07 07:35] LABS: EST GLOM FILT AFRICAN AMERICAN > 60 ml/min
[2016-10-07 08:00] VITALS: BP 121/82
[2016-10-07 08:38] LABS: BASO % 0.3 % (0.0-1.0); EOS # 0.6 10*3/uL (0.0-0.4); EOS % 4.8 % (1.0-4.0); HEMATOCRIT 32.5 % (42.0-52.0); HEMOGLOBIN 10.2 g/dl (14.0-18.0); IG # 0.1 10*3/uL (0.0-0.1); LYMPH % 25.6 % (27.0-41.0); MEAN CELL VOLUME 89.3 fl (80.0-94.0); MEAN CORPUSCULAR HGB CONC 31.4 g/dl (33.0-37.0); MEAN PLATELET VOLUME 9.2 fl (9.6-12.3); MONO # 0.8 10*3/uL (0.1-1.0); MONO % 6.8 % (3.0-9.0); NEUT # 7.3 10*3/uL (2.3-7.9); PLATELET COUNT AUTOMATED 389 10*3/uL (130-400); RED BLOOD COUNT 3.64 10*6/uL (4.50-5.90); RED CELL DISTRI WIDTH 14.2 % (0-14.5); WHITE BLOOD COUNT 11.7 10*3/uL (4.8-10.8)
[2016-10-07 12:00] VITALS: BP 129/76
[2016-10-07 16:00] VITALS: BP 171/98
[2016-10-07 20:00] VITALS: BP 158/91
[2016-10-08] VITALS: BP 138/89
[2016-10-08 08:00] VITALS: BP 150/94
[2016-10-08] MEDS ORDERED: D-1000 185 MG-11 TAB PO (10:34)
[2016-10-08] MEDS ORDERED: DOXYCYCLINE100 MG PO (10:35)
[2016-10-08] MEDS ORDERED: LEVAQUIN750 M1 PO (10:35)
[2016-10-08] MEDS ORDERED: PERCOCET 325 MG1 TA3 PO (10:46)
== END 2016-10-08 13:45 | disposition home health service (06) | DRG 853 ==
LOC: ED 13:40 → EDHOLD 14:55 → 5E 14:55 → 4E 15:17 → 5E 15:31
PROVIDERS: Emergency Medicine; Internal Medicine; Podiatrist Foot & Ankle Surgery
PROC: 0LBP0ZZ Excision of Left Lower Leg Tendon, Open Approach (ICD-10-PCS; principal; 2016-10-05)
PROC: 0QBM0ZZ Excision of Left Tarsal, Open Approach (ICD-10-PCS; 2016-10-05)
DX: A41.9 Sepsis, unspecified organism (principal); E43 Unspecified severe protein-calorie malnutrition; E10.22 Type 1 diabetes mellitus with diabetic chronic kidney disease; K31.84 Gastroparesis; E10.43 Type 1 diabetes mellitus with diabetic autonomic (poly)neuropathy; E10.65 Type 1 diabetes mellitus with hyperglycemia; L02.416 Cutaneous abscess of left lower limb; M86.8X7 Other osteomyelitis, ankle and foot; F19.20 Other psychoactive substance dependence, uncomplicated; L03.116 Cellulitis of left lower limb; E10.69 Type 1 diabetes mellitus with other specified complication; F32.9 Major depressive disorder, single episode, unspecified; N18.9 Chronic kidney disease, unspecified; F17.210 Nicotine dependence, cigarettes, uncomplicated; Z91.14 Patient's other noncompliance with medication regimen; Z68.21 Body mass index [BMI] 21.0-21.9, adult; Z87.81 Personal history of (healed) traumatic fracture; Z90.49 Acquired absence of other specified parts of digestive tract; Z82.49 Family history of ischemic heart disease and other diseases of the circulatory system; Z80.8 Family history of malignant neoplasm of other organs or systems; Z83.3 Family history of diabetes mellitus; S86.092A Other specified injury of left Achilles tendon, initial encounter

== ENCOUNTER 2016-11-05 08:44 | Inpatient (IN) | payer OTHER ==
[~2016-11-05] VITALS: Ht 165.1 cm; Wt 57.2 kg
--- NOTE | ~2016-11-05 | PR ---
[place], [place] PROGRESS NOTE NAME[facility] [id number] UNIT #: [id number] ROOM: 504 DOCTOR: DAVID LOMBARDO DPM BIRTHDATE: [birth year] DOS: 11/07/2016 SUBJECTIVE: The patient is seen today for followup of an infection of the left posterior heel. The patient has had a chronic ulcer for several months and he has been noncompliant with followups. He was admitted a few days ago with a left foot infection. He is a diabetic that is uncontrolled and he has a history of noncompliance. OBJECTIVE: Neurovascular status is unchanged. Posterior portion of the left heel actually looks really good. There is some mild soft tissue noted in the wound, but only minimal edema and erythema surrounding the wound less than 2 cm, no purulent drainage or malodor. Sutures are still in place from previous surgery and actually the area looks fairly clean with only mild infection. No signs of abscess. ASSESSMENT: Diabetes with chronic ulcer, left posterior heel, status post multiple surgeries, recent cellulitis, history of osteomyelitis, history of noncompliance. PLAN: Evaluation and management. The dressing is changed at this time. From an infectious standpoint, his foot looks pretty good. He could be discharged within the next day or so if it is okay with ID and Medicine. He could be debrided as an outpatient. I discussed with him about compliance with followups in order to reduce the risk of . We will see him tomorrow if he is still here. DAVID LOMBARDO DPM CM:PNTRANS [id number] DAVID LOMBARDO DPM 11/08/16 0254 interface
[~2016-11-05 08:44] MED LIST changes: +D-1000 185 MG-11 TAB PO; +DOXYCYCLINE100 MG PO; +PERCOCET 325 MG1 TA3 PO
[2016-11-05 08:59] VITALS: BP 140/90
[2016-11-05] MEDS ORDERED: ZESTRIL10 MG PO (09:00)
[2016-11-05 09:36] LABS: BASO # 0.1 10*3/uL (0.0-0.1); BASO % 0.3 % (0.0-1.0); EOS # 0.4 10*3/uL (0.0-0.4); EOS % 2.5 % (1.0-4.0); HEMATOCRIT 39.7 % (42.0-52.0); HEMOGLOBIN 12.4 g/dl (14.0-18.0); IG # 0.1 10*3/uL (0.0-0.1); LYMPH # 2.3 10*3/uL (1.3-4.4); LYMPH % 15.9 % (27.0-41.0); MEAN CELL VOLUME 87.1 fl (80.0-94.0); MEAN CORPUSCULAR HGB 27.2 pg (27.0-31.0); MEAN CORPUSCULAR HGB CONC 31.2 g/dl (33.0-37.0); MEAN PLATELET VOLUME 9.7 fl (9.6-12.3); MONO # 1.1 10*3/uL (0.1-1.0); MONO % 7.3 % (3.0-9.0); NEUT # 10.7 10*3/uL (2.3-7.9); NEUT % 73.6 % (47.0-73.0); PLATELET COUNT AUTOMATED 491 10*3/uL (130-400); RED BLOOD COUNT 4.56 10*6/uL (4.50-5.90); RED CELL DISTRI WIDTH 14.7 % (0-14.5); WHITE BLOOD COUNT 14.5 10*3/uL (4.8-10.8)
[2016-11-05 09:52] LABS: ALBUMIN 3.5 gm/dl (3.1-4.5); ALKALINE PHOSPHATASE 167 U/L (45-117); BILIRUBIN, TOTAL 0.3 mg/dl (0.2-1.0); BUN 14 mg/dl (7-24); CARBON DIOXIDE 26 mmol/L (21-32); CHLORIDE 104 mmol/L (98-107); EST GLOM FILT AFRICAN AMERICAN > 60 ml/min; GLUCOSE 290 mg/dL (65-99); MAGNESIUM 2.2 mg/dL (1.5-2.1); POTASSIUM 4.3 mmol/L (3.5-5.1); SGOT/AST 17 IU/L (3-35); SGPT/ALT 14 U/L (12-78); SODIUM 140 mmol/L (136-145); TOTAL PROTEIN 8.3 gm/dL (6.4-8.2); TROPONIN I < 0.015 ng/ml (<0.045)
[2016-11-05 10:27] VITALS: BP 136/80
[2016-11-05 11:06] VITALS: BP 136/88
[2016-11-05 12:00] VITALS: BP 110/76; BP 140/87
[2016-11-05 16:00] VITALS: BP 156/94
[2016-11-05 20:00] VITALS: BP 140/88
[2016-11-06] VITALS: BP 124/78
[2016-11-06 06:01] LABS: BASO # 0.1 10*3/uL (0.0-0.1); BASO % 0.8 % (0.0-1.0); EOS # 0.6 10*3/uL (0.0-0.4); EOS % 5.8 % (1.0-4.0); LYMPH # 3.4 10*3/uL (1.3-4.4); LYMPH % 31.9 % (27.0-41.0); MEAN CELL VOLUME 85.1 fl (80.0-94.0); MEAN CORPUSCULAR HGB 26.6 pg (27.0-31.0); MEAN CORPUSCULAR HGB CONC 31.3 g/dl (33.0-37.0); MEAN PLATELET VOLUME 10.2 fl (9.6-12.3); MONO # 0.8 10*3/uL (0.1-1.0); MONO % 7.7 % (3.0-9.0); NEUT # 5.7 10*3/uL (2.3-7.9); NEUT % 53.5 % (47.0-73.0); PLATELET COUNT AUTOMATED 398 10*3/uL (130-400); RED BLOOD COUNT 3.83 10*6/uL (4.50-5.90); RED CELL DISTRI WIDTH 14.5 % (0-14.5); WHITE BLOOD COUNT 10.6 10*3/uL (4.8-10.8)
[2016-11-06 06:07] LABS: HEMATOCRIT 32.6 % (42.0-52.0); HEMOGLOBIN 10.2 g/dl (14.0-18.0)
[2016-11-06 06:29] LABS: ALBUMIN 2.7 gm/dl (3.1-4.5); ALKALINE PHOSPHATASE 122 U/L (45-117); BILIRUBIN, TOTAL 0.3 mg/dl (0.2-1.0); BUN 19 mg/dl (7-24); C-REACTIVE PROTEIN 1.51 MG/DL (0-0.3); CARBON DIOXIDE 27 mmol/L (21-32); CHLORIDE 109 mmol/L (98-107); EST GLOM FILT AFRICAN AMERICAN > 60 ml/min; POTASSIUM 3.7 mmol/L (3.5-5.1); SGOT/AST 10 IU/L (3-35); SGPT/ALT 12 U/L (12-78); SODIUM 143 mmol/L (136-145); TOTAL PROTEIN 6.4 gm/dL (6.4-8.2)
[2016-11-06 06:32] LABS: GLUCOSE 45 mg/dL (65-99)
[2016-11-06 08:00] VITALS: BP 136/77
[2016-11-06 12:00] VITALS: BP 140/68
[2016-11-06 16:00] VITALS: BP 152/93
[2016-11-06 20:00] VITALS: BP 168/88
[2016-11-07] VITALS: BP 147/92
[2016-11-07 06:37] LABS: BASO # 0.1 10*3/uL (0.0-0.1); BASO % 0.5 % (0.0-1.0); EOS # 0.5 10*3/uL (0.0-0.4); EOS % 5.1 % (1.0-4.0); HEMATOCRIT 31.6 % (42.0-52.0); HEMOGLOBIN 10.1 g/dl (14.0-18.0); LYMPH # 2.4 10*3/uL (1.3-4.4); LYMPH % 24.8 % (27.0-41.0); MEAN CELL VOLUME 85.2 fl (80.0-94.0); MEAN CORPUSCULAR HGB 27.2 pg (27.0-31.0); MEAN PLATELET VOLUME 9.6 fl (9.6-12.3); MONO # 0.8 10*3/uL (0.1-1.0); MONO % 8.5 % (3.0-9.0); NEUT # 5.8 10*3/uL (2.3-7.9); NEUT % 60.7 % (47.0-73.0); PLATELET COUNT AUTOMATED 372 10*3/uL (130-400); RED BLOOD COUNT 3.71 10*6/uL (4.50-5.90); RED CELL DISTRI WIDTH 14.5 % (0-14.5); WHITE BLOOD COUNT 9.6 10*3/uL (4.8-10.8)
[2016-11-07 06:50] LABS: ALBUMIN 2.7 gm/dl (3.1-4.5); ALKALINE PHOSPHATASE 114 U/L (45-117); BILIRUBIN, TOTAL 0.2 mg/dl (0.2-1.0); BUN 17 mg/dl (7-24); CARBON DIOXIDE 22 mmol/L (21-32); CHLORIDE 108 mmol/L (98-107); EST GLOM FILT AFRICAN AMERICAN > 60 ml/min; GLUCOSE 250 mg/dL (65-99); POTASSIUM 4.2 mmol/L (3.5-5.1); SGOT/AST 9 IU/L (3-35); SGPT/ALT 11 U/L (12-78); SODIUM 139 mmol/L (136-145); TOTAL PROTEIN 6.3 gm/dL (6.4-8.2)
[2016-11-07 08:00] VITALS: BP 136/82
[2016-11-07 12:00] VITALS: BP 138/87
[2016-11-07 16:00] VITALS: BP 149/88
[2016-11-07 20:00] VITALS: BP 176/92
[2016-11-08] VITALS: BP 161/95
[2016-11-08 08:00] VITALS: BP 126/80
[2016-11-08] MEDS ORDERED: DOXYCYCLINE100 M3 PO (10:11)
[2016-11-08] MEDS ORDERED: Percocet 325 MG1 TAB PO (10:45)
== END 2016-11-08 12:04 | disposition home or self-care (01) | DRG 871 ==
LOC: ED 08:44 → EDHOLD 09:42 → 5E 09:42
PROVIDERS: Family Medicine Adult Medicine; Student in an Organized Health Care Education/Training Program
DX: A41.9 Sepsis, unspecified organism (principal); E43 Unspecified severe protein-calorie malnutrition; E10.22 Type 1 diabetes mellitus with diabetic chronic kidney disease; K31.84 Gastroparesis; E10.42 Type 1 diabetes mellitus with diabetic polyneuropathy; E10.622 Type 1 diabetes mellitus with other skin ulcer; L97.229 Non-pressure chronic ulcer of left calf with unspecified severity; F19.20 Other psychoactive substance dependence, uncomplicated; L03.116 Cellulitis of left lower limb; E78.1 Pure hyperglyceridemia; E10.65 Type 1 diabetes mellitus with hyperglycemia; D64.9 Anemia, unspecified; D47.3 Essential (hemorrhagic) thrombocythemia; E83.41 Hypermagnesemia; N18.9 Chronic kidney disease, unspecified; G89.29 Other chronic pain; M54.5 Low back pain; E10.43 Type 1 diabetes mellitus with diabetic autonomic (poly)neuropathy; F17.200 Nicotine dependence, unspecified, uncomplicated; S86.012A Strain of left Achilles tendon, initial encounter; M76.60 Achilles tendinitis, unspecified leg; F32.9 Major depressive disorder, single episode, unspecified; Z83.3 Family history of diabetes mellitus; Z82.49 Family history of ischemic heart disease and other diseases of the circulatory system; Z90.49 Acquired absence of other specified parts of digestive tract; Z91.19 Patient's noncompliance with other medical treatment and regimen; Z79.899 Other long term (current) drug therapy; Z68.21 Body mass index [BMI] 21.0-21.9, adult; Z87.440 Personal history of urinary (tract) infections; Z87.442 Personal history of urinary calculi; Z53.29 Procedure and treatment not carried out because of patient's decision for other reasons; X58.XXXA Exposure to other specified factors, initial encounter; Y93.89 Activity, other specified; Y92.89 Other specified places as the place of occurrence of the external cause; Y99.8 Other external cause status

== ENCOUNTER 2016-11-13 21:17 | Emergency (ER) | payer OTHER ==
[~2016-11-13] VITALS: Ht 165.1 cm; Wt 57.2 kg
[2016-11-13 21:17] VITALS: BP 119/73
[~2016-11-13 21:17] MED LIST changes: +Percocet 325 MG1 TAB PO; +ZESTRIL10 MG PO
[2016-11-13 21:53] LABS: BASO # 0.1 10*3/uL (0.0-0.1); BASO % 0.4 % (0.0-1.0); EOS # 0.3 10*3/uL (0.0-0.4); EOS % 2.7 % (1.0-4.0); LYMPH # 2.8 10*3/uL (1.3-4.4); LYMPH % 22.6 % (27.0-41.0); MEAN CELL VOLUME 85.6 fl (80.0-94.0); MEAN CORPUSCULAR HGB 26.9 pg (27.0-31.0); MEAN CORPUSCULAR HGB CONC 31.4 g/dl (33.0-37.0); MEAN PLATELET VOLUME 9.3 fl (9.6-12.3); MONO # 1.3 10*3/uL (0.1-1.0); MONO % 10.4 % (3.0-9.0); NEUT # 7.8 10*3/uL (2.3-7.9); NEUT % 63.6 % (47.0-73.0); PLATELET COUNT AUTOMATED 469 10*3/uL (130-400); RED BLOOD COUNT 4.09 10*6/uL (4.50-5.90); RED CELL DISTRI WIDTH 14.8 % (0-14.5); WHITE BLOOD COUNT 12.3 10*3/uL (4.8-10.8)
[2016-11-13 22:09] LABS: ALBUMIN 3.3 gm/dl (3.1-4.5); ALKALINE PHOSPHATASE 171 U/L (45-117); BILIRUBIN, TOTAL 0.2 mg/dl (0.2-1.0); BUN 17 mg/dl (7-24); CARBON DIOXIDE 27 mmol/L (21-32); CHLORIDE 103 mmol/L (98-107); EST GLOM FILT AFRICAN AMERICAN > 60 ml/min; POTASSIUM 3.8 mmol/L (3.5-5.1); SGOT/AST 38 IU/L (3-35); SGPT/ALT 27 U/L (12-78); SODIUM 140 mmol/L (136-145); TOTAL PROTEIN 7.6 gm/dL (6.4-8.2)
[2016-11-13 22:12] LABS: GLUCOSE 36 mg/dL (65-99)
== END 2016-11-14 00:07 | disposition home or self-care (01) ==
LOC: ED 21:17
PROVIDERS: Emergency Medicine Emergency Medical Services
DX: T40.1X1A Poisoning by heroin, accidental (unintentional), initial encounter (principal); T40.5X1A Poisoning by cocaine, accidental (unintentional), initial encounter; E10.40 Type 1 diabetes mellitus with diabetic neuropathy, unspecified; E10.622 Type 1 diabetes mellitus with other skin ulcer; L97.909 Non-pressure chronic ulcer of unspecified part of unspecified lower leg with unspecified severity; E10.10 Type 1 diabetes mellitus with ketoacidosis without coma; E16.2 Hypoglycemia, unspecified; E10.43 Type 1 diabetes mellitus with diabetic autonomic (poly)neuropathy; K31.84 Gastroparesis; Z87.19 Personal history of other diseases of the digestive system; F14.10 Cocaine abuse, uncomplicated; N18.9 Chronic kidney disease, unspecified; Z79.899 Other long term (current) drug therapy; Y92.9 Unspecified place or not applicable

== ENCOUNTER → 2016-11-29 | Outpatient (CLI) | payer OTHER | END | disposition home or self-care (01) | LOC: RESCLI 08:15 | DX: J06.9 Acute upper respiratory infection, unspecified (principal); G62.9 Polyneuropathy, unspecified; B97.89 Other viral agents as the cause of diseases classified elsewhere; E10.65 Type 1 diabetes mellitus with hyperglycemia; E55.9 Vitamin D deficiency, unspecified; I10 Essential (primary) hypertension; K21.9 Gastro-esophageal reflux disease without esophagitis; F33.9 Major depressive disorder, recurrent, unspecified; Z72.0 Tobacco use; Z71.6 Tobacco abuse counseling ==

== ENCOUNTER 2017-03-03 19:13 | Emergency (ER) | payer OTHER ==
[~2017-03-03] VITALS: Ht 165.1 cm; Wt 59.0 kg
[2017-03-03 19:19] VITALS: BP 158/64
[2017-03-03 19:54] LABS: BASO # 0.1 10*3/uL (0.0-0.1); BASO % 0.5 % (0.0-1.0); EOS # 0.3 10*3/uL (0.0-0.4); EOS % 2.4 % (1.0-4.0); HEMATOCRIT 42.6 % (42.0-52.0); HEMOGLOBIN 13.4 g/dl (14.0-18.0); LYMPH # 2.3 10*3/uL (1.3-4.4); LYMPH % 20.9 % (27.0-41.0); MEAN CELL VOLUME 87.5 fl (80.0-94.0); MEAN CORPUSCULAR HGB 27.5 pg (27.0-31.0); MEAN CORPUSCULAR HGB CONC 31.5 g/dl (33.0-37.0); MEAN PLATELET VOLUME 9.4 fl (9.6-12.3); MONO # 0.9 10*3/uL (0.1-1.0); MONO % 8.5 % (3.0-9.0); NEUT # 7.4 10*3/uL (2.3-7.9); NEUT % 67.2 % (47.0-73.0); PLATELET COUNT AUTOMATED 346 10*3/uL (130-400); RED BLOOD COUNT 4.87 10*6/uL (4.50-5.90); RED CELL DISTRI WIDTH 15.7 % (0-14.5); WHITE BLOOD COUNT 11.1 10*3/uL (4.8-10.8)
[2017-03-03 20:09] LABS: ALBUMIN 3.7 gm/dl (3.1-4.5); ALKALINE PHOSPHATASE 189 U/L (45-117); BUN 20 mg/dl (7-24); CHLORIDE 101 mmol/L (98-107); CREATININE 1.34 mg/dL (0.70-1.30); POTASSIUM 4.2 mmol/L (3.5-5.1); SGOT/AST 20 IU/L (3-35); SGPT/ALT 23 U/L (12-78); SODIUM 137 mmol/L (136-145); TOTAL PROTEIN 8.2 gm/dL (6.4-8.2)
[2017-03-03] MEDS ORDERED: VIBRAMYCIN100 MG PO (20:17)
[2017-03-03] MEDS ORDERED: DELTASONE20 M1 PO (20:17)
== END 2017-03-03 21:07 | disposition home or self-care (01) ==
LOC: ED 19:13
PROVIDERS: Physician Assistant
DX: J40 Bronchitis, not specified as acute or chronic (principal); F17.200 Nicotine dependence, unspecified, uncomplicated; Z79.899 Other long term (current) drug therapy

== ENCOUNTER 2017-04-04 06:36 | Emergency (ER) | payer OTHER ==
[~2017-04-04] VITALS: Ht 152.4 cm; Wt 61.2 kg
[~2017-04-04 06:36] MED LIST changes: +DELTASONE20 M1 PO; +VIBRAMYCIN100 MG PO
[2017-04-04 06:41] VITALS: BP 146/91
[2017-04-04 07:07] LABS: BASO % 0.2 % (0.0-1.0); EOS % 0.2 % (1.0-4.0); HEMATOCRIT 46.2 % (42.0-52.0); HEMOGLOBIN 14.7 g/dl (14.0-18.0); LYMPH # 1.2 10*3/uL (1.3-4.4); LYMPH % 6.9 % (27.0-41.0); MEAN CELL VOLUME 88.7 fl (80.0-94.0); MEAN CORPUSCULAR HGB 28.2 pg (27.0-31.0); MEAN CORPUSCULAR HGB CONC 31.8 g/dl (33.0-37.0); MEAN PLATELET VOLUME 10.2 fl (9.6-12.3); MONO # 1.1 10*3/uL (0.1-1.0); MONO % 6.3 % (3.0-9.0); NEUT # 15.2 10*3/uL (2.3-7.9); NEUT % 85.8 % (47.0-73.0); PLATELET COUNT AUTOMATED 327 10*3/uL (130-400); RED BLOOD COUNT 5.21 10*6/uL (4.50-5.90); RED CELL DISTRI WIDTH 15.2 % (0-14.5); WHITE BLOOD COUNT 17.7 10*3/uL (4.8-10.8)
[2017-04-04 07:21] LABS: ALBUMIN 3.6 gm/dl (3.1-4.5); ALKALINE PHOSPHATASE 201 U/L (45-117); BUN 19 mg/dl (7-24); CHLORIDE 105 mmol/L (98-107); CREATININE 1.53 mg/dL (0.70-1.30); LIPASE 209 U/L (73-393); POTASSIUM 3.6 mmol/L (3.5-5.1); SGOT/AST 22 IU/L (3-35); SGPT/ALT 21 U/L (12-78); SODIUM 141 mmol/L (136-145); TOTAL PROTEIN 8.2 gm/dL (6.4-8.2)
[2017-04-04 07:26] LABS: TROPONIN I 0.115 ng/ml (<0.045)
[2017-04-04 07:27] LABS: THYROID STIM HORMONE (HS) 0.876 uIU/ml (0.358-4.75)
== END 2017-04-04 09:52 | disposition home or self-care (01) ==
LOC: ED 06:36
PROVIDERS: Emergency Medicine Emergency Medical Services
DX: E10.649 Type 1 diabetes mellitus with hypoglycemia without coma (principal); E10.10 Type 1 diabetes mellitus with ketoacidosis without coma; K22.10 Ulcer of esophagus without bleeding; E83.41 Hypermagnesemia; E78.1 Pure hyperglyceridemia; F32.9 Major depressive disorder, single episode, unspecified; F10.10 Alcohol abuse, uncomplicated; G89.29 Other chronic pain; E10.22 Type 1 diabetes mellitus with diabetic chronic kidney disease; N18.9 Chronic kidney disease, unspecified; E10.43 Type 1 diabetes mellitus with diabetic autonomic (poly)neuropathy; K31.84 Gastroparesis; Z79.4 Long term (current) use of insulin; Z79.899 Other long term (current) drug therapy; Z90.49 Acquired absence of other specified parts of digestive tract

== ENCOUNTER 2017-04-29 06:30 | Inpatient (IN) | payer OTHER ==
[~2017-04-29] VITALS: Ht 165.1 cm; Wt 57.8 kg
--- NOTE | ~2017-04-29 | CON ---
[place], [place] REPORT OF CONSULTATION NAME: VELASQUEZ IRBY UNIT #: [id number] ROOM: 501 DOCTOR: ELEUTERIO COULTER DPM BIRTHDATE: [birth year] DOS: 05/02/2017 SUBJECTIVE: The patient presents as a 36-year-old male with chief complaint of recurrent ulceration, posterior left ankle. We have treated the patient previously for the long-standing ulceration on the posterior left ankle and had surgical intervention performed by Dr. Sena previously. PAST MEDICAL HISTORY: Accidental overdose of heroin, Achilles tendon rupture, left avulsion fracture of calcaneus, cellulitis and abscess of foot, chronic kidney disease, chronic low back pain, uncontrolled type 1 diabetes, diabetic gastroparesis associated with type 1 diabetes, diabetic neuropathy, diabetic ulcer of lower leg, esophageal ulcer, history of noncompliance with medical treatment, hypertriglyceridemia, IV drug user, major depressive disorder, nephrolithiasis. PAST SURGICAL HISTORY: Chest tube placement, cholecystectomy, tonsillectomy, esophagogastroduodenoscopy, history of previous Achilles tendon surgery. SOCIAL HISTORY: Cocaine abuse. Does not drink alcohol. IV drug abuse, marijuana abuse, tobacco abuse, 1 pack daily. FAMILY: Mother, history of diabetes type 2, age 60 plus. Father , age 55, [place]. Relation not specified for [place], diabetes, hypertension, [place]. ALLERGIES: None. PHYSICAL EXAMINATION: LOWER EXTREMITY: Diminished pedal pulses. Diminished skin color, temperature, hair growth. There is an ulceration, posterior left Achilles tendon, it is full thickness. There are no signs of erythema. No abscess. No signs of purulent drainage or foul odor. The patient is combative and does not want aggressive treatment. ASSESSMENT: Diabetic ulceration, posterior left ankle; diabetic neuropathy. PLAN: Evaluation and management. Again, the patient was combative regarding treatment. The patient did not want anything done aggressively. I discussed with the patient we will just order local wound care and follow accordingly. Again, the patient stated he did not want the area touched or debrided or any surgical intervention. [place], [place] REPORT OF CONSULTATION NAME: VELASQUEZ IRBY UNIT #: [id number] ROOM: 501 DOCTOR: ELEUTERIO COULTER DPM BIRTHDATE: [birth year] ELEUTERIO COULTER DPM CM:CONSTR:REPORT OF CONSULTATION 1204 05/02/17 1426 interface
[2017-04-29 06:33] VITALS: BP 148/87
[2017-04-29 07:29] LABS: BASO # 0.1 10*3/uL (0.0-0.1); BASO % 0.6 % (0.0-1.0); EOS # 0.3 10*3/uL (0.0-0.4); EOS % 2.6 % (1.0-4.0); HEMATOCRIT 40.4 % (42.0-52.0); LYMPH # 1.8 10*3/uL (1.3-4.4); LYMPH % 17.9 % (27.0-41.0); MEAN CELL VOLUME 88.8 fl (80.0-94.0); MEAN CORPUSCULAR HGB 28.6 pg (27.0-31.0); MEAN CORPUSCULAR HGB CONC 32.2 g/dl (33.0-37.0); MONO # 0.9 10*3/uL (0.1-1.0); MONO % 8.8 % (3.0-9.0); NEUT % 69.8 % (47.0-73.0); PLATELET COUNT AUTOMATED 259 10*3/uL (130-400); RED BLOOD COUNT 4.55 10*6/uL (4.50-5.90); RED CELL DISTRI WIDTH 15.4 % (0-14.5)
[2017-04-29 07:44] LABS: ALBUMIN 3.5 gm/dl (3.1-4.5); ALKALINE PHOSPHATASE 176 U/L (45-117); BUN 21 mg/dl (7-24); CHLORIDE 102 mmol/L (98-107); CREATININE 1.34 mg/dL (0.70-1.30); LIPASE 1428 U/L (73-393); POTASSIUM 4.3 mmol/L (3.5-5.1); SGOT/AST 15 IU/L (3-35); SGPT/ALT 19 U/L (12-78); SODIUM 137 mmol/L (136-145); TOTAL PROTEIN 7.4 gm/dL (6.4-8.2)
[2017-04-29 07:47] VITALS: BP 149/87
--- NOTE | 2017-04-29 07:48 | NUR ---
IV FLUIDS INFUSING PER EMAR. PT RESTING IN BED. GIVEN ADDITIONAL BLANKETS REQUESTED. VITALS ARE STABLE. PT PROMPTED A SECOND TIME FOR URINE SPECIMEN WITH URINAL AT BEDSIDE. WILL CONTINUE TO MONITOR.
--- NOTE | 2017-04-29 08:12 | NUR ---
pt has small, healing wound to left heel.
[2017-04-29 09:05] LABS: BILIRUBIN NEGATIVE (NEGATIVE); BLOOD 2+ (NEGATIVE); CLARITY CLEAR (CLEAR); COLOR YELLOW (YELLOW); GLUCOSE 3+ (NEGATIVE); KETONE 1+ (NEGATIVE); LEUKO ESTERASE NEGATIVE (NEGATIVE); NITRITE NEGATIVE (NEGATIVE); UROBILINOGEN 0.2 E.U./dl (0.2-1.0)
[2017-04-29 09:11] LABS: URINE AMPHETAMINES < 1000 (1000ng/ml); URINE BARBITURATES < 200 (200ng/ml); URINE BENZODIAZEPINES < 200 (200ng/ml); URINE CANNABINOIDS (THC) > 50 (50ng/ml); URINE COCAINE > 300 (300ng/ml); URINE METHADONE < 300 (300ng/ml); URINE OPIATES < 300 (300ng/ml)
[2017-04-29 09:14] LABS: URINE PHENCYCLIDINE < 25 (25ng/ml)
--- NOTE | 2017-04-29 09:20 | NUR ---
A 36, admitted to 5E, under the services of NICKOLAS Bravo DO with a diagnosis of PANCREATITIS. Chief complaint is NAUSEA/VOMITING. Patient arrived via bed from ER. Monitor applied. Initial assessment completed. Vital signs taken and recorded. NICKOLAS BRAVO DO notified of admission to the unit. Orders received. See assessment for past medical history, medications and allergies. Patient and/or family oriented to unit. [facility] visitation policy reviewed. Clothing/patient valuable form completed. ASSESSMENT COMPLETE. PT REFUSING FLU AND PNEUMONIA VACCINATIONS. HEALING WOUND POSTERIOR LEFT ANKLE. WILL VERIFY HOME MEDICATIONS. CHERIE KAISER
[2017-04-29 09:28] LABS: RBC 16-20 rbc/hpf (0-2)
[2017-04-29 09:31] VITALS: BP 141/84
--- NOTE | 2017-04-29 09:57 | NUR ---
HOME MEDICATIONS VERIFIED WITH PHARMACIST AT [facility]. DR CELESTE NOTIFIED.
--- NOTE | 2017-04-29 11:21 | NUR ---
ADMINISTERED PO NORCO PER PT REQUETS FOR ABDOMINAL PAIN RATED 8/10. WILL MONITOR FOR EFFECTIVENESS.
[2017-04-29 12:00] VITALS: BP 146/74
--- NOTE | 2017-04-29 12:02 | NUR ---
ADMNISTERED IV PHENEGRAN PER PT REQUEST FOOR NAUSEA. WILL MONITOR FOR EFFECTIVENESS.
--- NOTE | 2017-04-29 12:20 | NUR ---
Patient resting quietly with no c/o discomfort. Respirations easy and regular. Vital signs stable. No overt distress. CHERIE KAISER
--- NOTE | 2017-04-29 13:00 | NUR ---
PT SLEEPING. RESPS REG EASY WITH NO DISTRESS NOTED AT THIS TIME.
[2017-04-29 16:00] VITALS: BP 135/70
--- NOTE | 2017-04-29 16:47 | NUR ---
SPOKE TO DR CELESTE AND REQUESTED ORDERS FOR WOUND CARE.
--- NOTE | 2017-04-29 19:20 | NUR ---
PT. AWAKE, ALERT AND ORIENTED X 3 AT THIS TIME. NEGATIVE ASSESSMENT. DENIES CP, SOB, NVD. STATED ABDOMINAL PAIN 12/12 DURING ASSESSMENT. CALL LIGHT WITHIN REACH, BED IN LOWEST POSITION, WHEELS LOCKED.
--- NOTE | 2017-04-29 19:39 | NUR ---
. FERN AT THIS TIME FOR PT. C/O ABDOMINAL PAIN. WILL MONITOR FOR EFFECTIVENESS.
[2017-04-29 20:00] VITALS: BP 143/78
--- NOTE | 2017-04-29 20:10 | NUR ---
PT. STATED EFFECTIVENESS OF NORCO AT THIS TIME.
[2017-04-30] VITALS: BP 144/74
[2017-04-30 06:24] LABS: BASO # 0.1 10*3/uL (0.0-0.1); BASO % 0.8 % (0.0-1.0); EOS # 0.4 10*3/uL (0.0-0.4); EOS % 5.3 % (1.0-4.0); LYMPH % 27.4 % (27.0-41.0); MEAN CELL VOLUME 89.2 fl (80.0-94.0); MEAN CORPUSCULAR HGB 28.2 pg (27.0-31.0); MEAN CORPUSCULAR HGB CONC 31.6 g/dl (33.0-37.0); MEAN PLATELET VOLUME 9.8 fl (9.6-12.3); MONO # 0.6 10*3/uL (0.1-1.0); MONO % 8.1 % (3.0-9.0); NEUT # 4.2 10*3/uL (2.3-7.9); PLATELET COUNT AUTOMATED 222 10*3/uL (130-400); RED BLOOD COUNT 4.26 10*6/uL (4.50-5.90); RED CELL DISTRI WIDTH 15.2 % (0-14.5); WHITE BLOOD COUNT 7.3 10*3/uL (4.8-10.8)
--- NOTE | 2017-04-30 06:33 | NUR ---
PT GIVEN PRN NAUSEA MED PROMATHAZINE. RUNNING THROUGH PUMP.
[2017-04-30 06:59] LABS: BUN 16 mg/dl (7-24); CHLORIDE 109 mmol/L (98-107); LIPASE 749 U/L (73-393); POTASSIUM 3.6 mmol/L (3.5-5.1); SGPT/ALT 17 U/L (12-78); SODIUM 141 mmol/L (136-145)
[2017-04-30 07:09] LABS: ALKALINE PHOSPHATASE 143 U/L (45-117); CHOLESTEROL 179 mg/dL (<200); HDL CHOLESTEROL 30 mg/dl (40-60); LDL CHOLESTEROL 116 mg/dL (9-159); PHOSPHOROUS 1.9 mg/dL (2.5-4.9); SGOT/AST 19 IU/L (3-35); TOTAL PROTEIN 6.3 gm/dL (6.4-8.2); TRIGLYCERIDES 167 mg/dl (<150); VLDL CHOLESTEROL 33 mg/dL (6-40)
[2017-04-30 07:46] LABS: VITAMIN D, 25-HYDROXY 29.7 ng/mL (30-100)
[2017-04-30 08:00] VITALS: BP 155/84
--- NOTE | 2017-04-30 08:02 | NUR ---
PHENERGAN SCANNED AT 0623 NOT GIVEN AT THIS TIME. MED WAS SCANNED AND DRAWN UP, BUT PT. REFUSED AFTER SYRINGE PUMP WOULD NOT OPERATE CORRECTLY. PT. STATED THAT HE WOULD TAKE THE PHENERGAN FOR THE NEXT SHIFT. REPORTED TO ONCOMING NURSE.
[2017-04-30 12:00] VITALS: BP 138/82
[2017-04-30 16:00] VITALS: BP 140/74
[2017-04-30 20:00] VITALS: BP 135/73
--- NOTE | 2017-04-30 21:04 | NUR ---
PATIENT MEDICATED WITH PRN NORCO FOR ABD PAIN RATED 8/10 ON A 0/10 PAIN SCALE
--- NOTE | 2017-04-30 22:27 | NUR ---
MEDICATION EFFECTIVE PER PATIENT
[2017-05-01] VITALS (7 sets, daily range): BP systolic 118–149; BP diastolic 64–79
--- NOTE | 2017-05-01 00:44 | NUR ---
MEDICATED WITH PRN ZOFRAN FOR C/O NAUSEA
--- NOTE | 2017-05-01 02:48 | NUR ---
PRN NORCO AND PHENERGEN GIVEN FOR C/O NAUSEA AND PAIN
--- NOTE | 2017-05-01 06:13 | NUR ---
PATIENT BG 339. STATES DOES NOT WANT THE ENTIRE 9 UNITS ORDERED. ONLY WANTS 4
[2017-05-01 07:15] LABS: CREATININE 1.88 mg/dL (0.70-1.30); PHOSPHOROUS 6.5 mg/dL (2.5-4.9)
[2017-05-01 07:32] LABS: POTASSIUM 5.5 mmol/L (3.5-5.1)
--- NOTE | 2017-05-01 07:36 | NUR ---
RN NOTIFIED DR CELESTE OF CARBON DIOXIDE OF 7. LAST CARBON DIOXIDE WAS 23 ON 04/30/17.
--- NOTE | 2017-05-01 08:25 | NUR ---
TRANSPORTED PT TO [facility] PER MD ORDER.
--- NOTE | 2017-05-01 08:26 | NUR ---
RECIEVED IN [facility] , PT AAOX3, COOPERATIVE AT PRESENT, INSULIN DRIP STARTED FOR INITIAL BEDGLU OF 340, FLUID BOLUS STARTED,RESP HERE TO DO GASES, PT SLEEPY WITH VERY STRONG ACETONE ODOR TO BREATH, OLD SCABBED SURGICAL WOUND TO BACK OF LEFT ANKLE
[2017-05-01 08:48] LABS: ABG HCO3 5.8 mmol/l (22-26); ABG O2 SATURATION 96.9 % (95-97); ARTERIAL BLOOD GAS PCO2 18.7 mmHg (35-45); ARTERIAL BLOOD GAS PO2 98.8 mmHg (80-90)
[2017-05-01 08:51] LABS: ABG BASE EXCESS -22.8 mmol/L (-2.0-2.0)
[2017-05-01 08:52] LABS: ARTERIAL BLOOD GAS PH 7.117 (7.35-7.45)
--- NOTE | 2017-05-01 08:53 | NUR ---
DR CELESTE UPDATED ON ABG RESULTS
--- NOTE | 2017-05-01 09:00 | NUR ---
[facility] VS. DR MENDEZ AT BEDSIDE. WILL FOLLOW.
--- NOTE | 2017-05-01 09:09 | NUR ---
DR MENDEZ HERE TO EVUAL PT
--- NOTE | 2017-05-01 09:28 | NUR ---
diluadid for 03/14, iv protonix and iv phenergen given for upset stomach, stomach pain and burning
--- NOTE | 2017-05-01 11:06 | NUR ---
3RD FLUID BOLUS STARTED
[2017-05-01 12:22] LABS: CREATININE 1.81 mg/dL (0.70-1.30)
[2017-05-01 12:23] LABS: HEMATOCRIT 38.9 % (42.0-52.0); HEMOGLOBIN 12.1 g/dl (14.0-18.0); MEAN CORPUSCULAR HGB 29.5 pg (27.0-31.0); MEAN CORPUSCULAR HGB CONC 31.1 g/dl (33.0-37.0); MEAN PLATELET VOLUME 10.3 fl (9.6-12.3); PLATELET COUNT AUTOMATED 239 10*3/uL (130-400); POTASSIUM 4.4 mmol/L (3.5-5.1); WHITE BLOOD COUNT 18.5 10*3/uL (4.8-10.8)
[2017-05-01 12:24] LABS: MEAN CELL VOLUME 94.9 fl (80.0-94.0)
[2017-05-01 12:50] LABS: TOTAL CELLS COUNTED 100 #CELLS
[2017-05-01 12:51] LABS: BURR CELLS FEW; PLATELET SUFFICIENCY NORMAL (NORMAL)
--- NOTE | 2017-05-01 12:53 | NUR ---
DR CELESTE UPDATED ON NO LABS
--- NOTE | 2017-05-01 13:12 | NUR ---
BLOOD SUGARS 9A-340 DRIP AT 4 UNITS 10-283 DRIP TO 5 UNITS 11-266 DRIP TO 6 UNITS 12-211 DRIP TO 7 1-208 DRIP TO 8
--- NOTE | 2017-05-01 14:33 | NUR ---
dr hood service notified of consult
--- NOTE | 2017-05-01 15:10 | NUR ---
BLOOD SUGAR 170-FLUIDS CHANGED TO D5.45
--- NOTE | 2017-05-01 15:47 | NUR ---
Shift chart check completed.24 HR chart check completed.
--- NOTE | 2017-05-01 15:49 | NUR ---
VELASQUEZ IRBY [id number] Please refer to the physician's history and physical for past medical history, comorbid conditions, and allergies. Diagnosis: PANCREATITIS Franko Score: 22,LOW OR NO RISK WOUND DESCRIPTIONS: Location of the wound: ankle Type of wound: surgical Thickness: Full Size: 2 cm x 1 cm x 0.5cm Tunneling: none Undermining: none Sinus Tract: none Presence of Exudate: Amount: None Color: Brown Odor: None Periwound Skin Appearance: Normal Wound edges: approximated Pain (associated with wound): patient denied at time of assessment How does patient state this happened? patient states he had surgery at the beginning of this summer. Patient refused any dressing recommendations and stated "every time I cover this wound it gets infected." Patient agreed to podiatry consult. Surface the patient is resting on: Isoflex SKIN PREVENTION RECOMMENDATION: 1. Pressure redistribution support surface as appropriate 2. Elevate heels 3. Remove boots/TEDS every shift and reapply 4. Head of bed 30 degrees as tolerated 5. Assess nutrition and hydration 6. Manage moisture 7. Avoid the use of containment devices while in bed 8. Use absorptive products on surfaces limit layers of linens on bed 9. Turn and reposition every 1-2 hours in bed and every 1 hour in chair as tolerated 10. Weight shifts every 15 minutes while up in chair 11. Offloading with pillows or device to keep heels elevated off bed 12. Monitor skin at least every shift 13. Inspect under medical devices twice a day WOUND TREATMENT RECOMMENDATIONS: Consult Podiatry Patient refused wound care recommendations except consult for podiatry.
--- NOTE | 2017-05-01 16:20 | NUR ---
ON ASSESSMENT PATIENT DROWSY BUT EASILY AROUSED AND ORIENTED WHEN AWAKENED. IV FLUIDS CONTINUE AT 125/HR. INSULIN DRIP TITRATED TO 5 UNITS/HR FOR BSBS OF 135. NO N/V AT THIS TIME AND NO VOICED COMPLAINTS ON ASSESSMENT. ICE CHIPS ONLY. SEE ALL APPROPRIATE INTERVENTIONS.
--- NOTE | 2017-05-01 17:00 | NUR ---
INSULIN DRIP TITRATED TO 3UNITS/HR FOR BSBS OF 119.
--- NOTE | 2017-05-01 18:11 | NUR ---
ZOFRAN IV FOR NAUSEA BUT NO EMESIS. INSULIN DRIP TITRATED TO 2 UNITS/HR FOR BSBS OF 123.
[2017-05-01 18:23] LABS: CREATININE 1.77 mg/dL (0.70-1.30); POTASSIUM 3.8 mmol/L (3.5-5.1)
--- NOTE | 2017-05-01 18:29 | NUR ---
DR CELESTE NOTIFIED OF 6PM BMP AND CURRENT INFUSION RATE OF INSULIN. NO NEW ORDERS AT THIS TIME.
--- NOTE | 2017-05-01 19:01 | NUR ---
INSULIN DRIP TITRATED TO 1 UNIT/HR FOR BSBS 98. SLEEPING SOUNDLY SINCE EARLIER ZOCASIMIRO.
--- NOTE | 2017-05-01 19:55 | NUR ---
CHECKED PATIENT BLOOD GLUCOSE 99. INSULIN DRIP TURN OFF CURRENTLY. PATIENT EATING CRACKERS JELLO AND APPLE JUCIE CURRENTLY. PATIENT DENIES ANY PAIN AT THIS TIME.
--- NOTE | 2017-05-01 22:27 | NUR ---
PATIENT TOLERATING JUICE JELLO AND CRACKERS WELL. PATIENT GIVEN DIET GINGERALE. IV FLUIDS STOPPED PER SINCE PATIENT IS EATING AND DRINKING WELL.
[2017-05-02] VITALS: BP 126/69
--- NOTE | 2017-05-02 00:09 | NUR ---
RESTING IN BED WITH EYES CLOSED. APPEARS TO BE SLEEPING. HEP LOCK'S INTACT X'S 2.URINAL AT BEDSIDE. NO DISTRESS NOTED. NO C/O'S VOICED.
[2017-05-02 00:35] LABS: CREATININE 1.62 mg/dL (0.70-1.30); POTASSIUM 3.5 mmol/L (3.5-5.1)
--- NOTE | 2017-05-02 02:37 | NUR ---
PT PUT CALL LIGHT ON AT 0230.STATES "WOULD YOU CHECK MY SUGAR.I THINK IT'S LOW".BEDSIDE SUGAR READS CRITICAL LOW.STAT REFLEX ORDERED PER POLICY. GIVEN CONT OF OJ PER REQUEST. 0236 LAB HERE TO DRAW STAT REFLEX.
--- NOTE | 2017-05-02 03:08 | NUR ---
0245 PT DRINKING 2 CONT OF OJ. 0250 DRANK 2 CONT OF APPLE JUICE. EATING SHON CRACKERS WITH PEANUT BUTTER. ALERT. 0305LAB CALLED WITH STAT REFLEX.WAS 24. ATTEMPTED TO GIVEN PT AMP OF D50 IV. REFUSED. MADE AWARE. PT DRINKING CONT OF CHOCOLATE MILK NOW.
[2017-05-02 04:00] VITALS: BP 139/76
--- NOTE | 2017-05-02 04:22 | NUR ---
RESTING IN BED WITH EYES CLOSED. APPEARS TO BE SLEEPING.
[2017-05-02 05:57] LABS: BASO % 0.2 % (0.0-1.0); EOS # 0.1 10*3/uL (0.0-0.4); EOS % 0.7 % (1.0-4.0); HEMOGLOBIN 11.9 g/dl (14.0-18.0); LYMPH # 1.5 10*3/uL (1.3-4.4); LYMPH % 8.6 % (27.0-41.0); MEAN CORPUSCULAR HGB 28.7 pg (27.0-31.0); MEAN CORPUSCULAR HGB CONC 32.2 g/dl (33.0-37.0); MONO # 1.2 10*3/uL (0.1-1.0); MONO % 6.9 % (3.0-9.0); NEUT # 13.9 10*3/uL (2.3-7.9); NEUT % 82.7 % (47.0-73.0); PLATELET COUNT AUTOMATED 249 10*3/uL (130-400); RED BLOOD COUNT 4.15 10*6/uL (4.50-5.90); RED CELL DISTRI WIDTH 15.6 % (0-14.5); WHITE BLOOD COUNT 16.8 10*3/uL (4.8-10.8)
[2017-05-02 06:07] LABS: MEAN CELL VOLUME 89.2 fl (80.0-94.0)
[2017-05-02 06:09] LABS: BUN 24 mg/dl (7-24); CHLORIDE 118 mmol/L (98-107); CREATININE 1.48 mg/dL (0.70-1.30); POTASSIUM 3.8 mmol/L (3.5-5.1); SODIUM 144 mmol/L (136-145)
--- NOTE | 2017-05-02 06:18 | NUR ---
NO DISTRESS NOTED.CONDITION GUARDED.
[2017-05-02 08:00] VITALS: BP 132/67
--- NOTE | 2017-05-02 08:30 | NUR ---
[employer] HOME ASSOCIATE VS. CURTAINS ARE PULLED.
--- NOTE | 2017-05-02 11:55 | NUR ---
DR. COULTER HERE TO SEE PATIENT. PATIENT UPSET DOES NOT WANT FOOT DOCTOR SEEING HIM OR CUTTING ON HIS FOOT. DR. COULTER EXPLAINED HE IS JUST GOING TO PIT IN DRESSING ORDER.
[2017-05-02 12:00] VITALS: BP 153/79
--- NOTE | 2017-05-02 13:35 | NUR ---
PATIENT TRANSFERED TO [facility] NURSE TO NURSE REPORT GIVEN.
--- NOTE | 2017-05-02 14:10 | NUR ---
KAVITA SPOKE WITH PT ABOUT DISCHARGE PLANS. KAVITA GAVE PT A LIST OF HOMELESS SHELTERS. PT DOES NOT WANT TO STAY AT HIS BROTHER'S AT THIS TIME DUE TO "A SITUATION". PT SAID THAT HE CAN STAY AT A FEW FRIENDS. PT HAS AN APPOINTMENT FOR DRUG ASSESSMENT AT [facility] 05-03-17 AT 2PM. PT LOOKING AT CHANGING THAT APPOINTMENT. PT IS ON [place] AND MAY HAVE A DIFFICLUT TIME FINDING A PLACE TO LIVE DUE TO NO INCOME. PT LOOKING INTO APPLYING FOR DISABILITY AGAIN.
--- NOTE | 2017-05-02 14:53 | NUR ---
PT'S IV TAKEN OUT DUE TO REQUEST OF PT UNDER AKNOLAGEMENT OF DR. CELESTE. DR. CELESTE MADE AWARE OF HOME MEDS HELD WHILE IN THE ICU. LOOKING INTO HOME MEDS. WILL CONTINUE IF POSSIBLE.
--- NOTE | 2017-05-02 16:47 | NUR ---
PT NOT FOUND IN ROOM AFTER CALL BY WOUND CARE NURSE COUGHT HIM OUTSIDE NEAR [facility] USING RECREATIONAL DRUGS. IV WAS TAKEN OUT PRIOR. ALL BELONGINGS TAKEN WITH HIM. PT HAS LEFT AMA. WILDA JARRETT
== END 2017-05-02 16:47 | disposition left against medical advice (07) | DRG 438 ==
LOC: ED 06:30 → EDHOLD 08:13 → ICCU 08:13 → 5E 08:39 → ICCU 05-01 08:13 → 5E 05-02 13:28
PROVIDERS: Emergency Medicine; Internal Medicine; Student in an Organized Health Care Education/Training Program; ADMIT Internal Medicine
DX: K85.90 Acute pancreatitis without necrosis or infection, unspecified (principal); N17.0 Acute kidney failure with tubular necrosis; K31.84 Gastroparesis; E44.0 Moderate protein-calorie malnutrition; E10.10 Type 1 diabetes mellitus with ketoacidosis without coma; E10.22 Type 1 diabetes mellitus with diabetic chronic kidney disease; L97.329 Non-pressure chronic ulcer of left ankle with unspecified severity; E10.622 Type 1 diabetes mellitus with other skin ulcer; E10.43 Type 1 diabetes mellitus with diabetic autonomic (poly)neuropathy; N18.9 Chronic kidney disease, unspecified; M54.5 Low back pain; G89.29 Other chronic pain; F32.9 Major depressive disorder, single episode, unspecified; F12.10 Cannabis abuse, uncomplicated; E55.9 Vitamin D deficiency, unspecified; F14.10 Cocaine abuse, uncomplicated; K52.9 Noninfective gastroenteritis and colitis, unspecified; D64.9 Anemia, unspecified; D72.810 Lymphocytopenia; E78.1 Pure hyperglyceridemia; Z71.6 Tobacco abuse counseling; Z79.4 Long term (current) use of insulin; Z87.442 Personal history of urinary calculi; Z90.49 Acquired absence of other specified parts of digestive tract; Z72.0 Tobacco use; Z83.3 Family history of diabetes mellitus; Z82.49 Family history of ischemic heart disease and other diseases of the circulatory system; Z80.9 Family history of malignant neoplasm, unspecified; Z87.440 Personal history of urinary (tract) infections; Z68.21 Body mass index [BMI] 21.0-21.9, adult

== ENCOUNTER 2017-06-05 00:30 | Inpatient (IN) | payer OTHER ==
[~2017-06-05] VITALS: Ht 165.1 cm; Wt 60.1 kg
[2017-06-05] VITALS (8 sets, daily range): BP systolic 119–164; BP diastolic 71–98
[2017-06-05 01:04] LABS: BASO # 0.1 10*3/uL (0.0-0.1); BASO % 0.4 % (0.0-1.0); EOS # 0.6 10*3/uL (0.0-0.4); HEMATOCRIT 39.2 % (42.0-52.0); HEMOGLOBIN 12.8 g/dl (14.0-18.0); LYMPH # 2.6 10*3/uL (1.3-4.4); LYMPH % 18.9 % (27.0-41.0); MEAN CELL VOLUME 89.9 fl (80.0-94.0); MEAN CORPUSCULAR HGB 29.4 pg (27.0-31.0); MEAN CORPUSCULAR HGB CONC 32.7 g/dl (33.0-37.0); MEAN PLATELET VOLUME 10.6 fl (9.6-12.3); MONO % 6.9 % (3.0-9.0); NEUT # 9.7 10*3/uL (2.3-7.9); NEUT % 69.4 % (47.0-73.0); PLATELET COUNT AUTOMATED 288 10*3/uL (130-400); RED BLOOD COUNT 4.36 10*6/uL (4.50-5.90); RED CELL DISTRI WIDTH 14.9 % (0-14.5)
[2017-06-05 01:24] LABS: ALBUMIN 3.3 gm/dl (3.1-4.5); ALKALINE PHOSPHATASE 167 U/L (45-117); BUN 22 mg/dl (7-24); CHLORIDE 93 mmol/L (98-107); LIPASE 1023 U/L (73-393); POTASSIUM 4.6 mmol/L (3.5-5.1); SGOT/AST 24 IU/L (3-35); SGPT/ALT 25 U/L (12-78); SODIUM 130 mmol/L (136-145)
[2017-06-05 01:26] LABS: TROPONIN I < 0.015 ng/ml (<0.045)
[2017-06-05 02:10] LABS: BILIRUBIN NEGATIVE (NEGATIVE); BLOOD TRACE-INTACT (NEGATIVE); CLARITY CLEAR (CLEAR); COLOR YELLOW (YELLOW); GLUCOSE 3+ (NEGATIVE); KETONE NEGATIVE (NEGATIVE); LEUKO ESTERASE NEGATIVE (NEGATIVE); NITRITE NEGATIVE (NEGATIVE); PH 6.5 (5.0-9.0); SPECIFIC GRAVITY <= 1.005 (1.005-1.030); UROBILINOGEN 0.2 E.U./dl (0.2-1.0)
[2017-06-05 02:16] LABS: BACTERIA TRACE; EPITHELIAL CELLS 0-2
[2017-06-05 02:19] LABS: URINE AMPHETAMINES < 1000 (1000ng/ml); URINE BARBITURATES < 200 (200ng/ml); URINE BENZODIAZEPINES < 200 (200ng/ml); URINE CANNABINOIDS (THC) < 50 (50ng/ml); URINE COCAINE > 300 (300ng/ml); URINE METHADONE < 300 (300ng/ml); URINE OPIATES < 300 (300ng/ml)
[2017-06-05 02:20] LABS: URINE PHENCYCLIDINE < 25 (25ng/ml)
[2017-06-05] MEDS ORDERED: ZESTRIL10 MG PO (04:47)
[2017-06-05] MEDS ORDERED: NEURONTIN800 MG PO (04:47)
[2017-06-05 05:31] LABS: BASO # 0.1 10*3/uL (0.0-0.1); BASO % 0.5 % (0.0-1.0); EOS # 0.7 10*3/uL (0.0-0.4); EOS % 4.9 % (1.0-4.0); HEMATOCRIT 34.5 % (42.0-52.0); HEMOGLOBIN 11.3 g/dl (14.0-18.0); LYMPH # 3.9 10*3/uL (1.3-4.4); LYMPH % 29.1 % (27.0-41.0); MEAN CELL VOLUME 91.8 fl (80.0-94.0); MEAN CORPUSCULAR HGB 30.1 pg (27.0-31.0); MEAN CORPUSCULAR HGB CONC 32.8 g/dl (33.0-37.0); MEAN PLATELET VOLUME 9.9 fl (9.6-12.3); MONO # 1.2 10*3/uL (0.1-1.0); MONO % 8.7 % (3.0-9.0); NEUT # 7.5 10*3/uL (2.3-7.9); NEUT % 56.5 % (47.0-73.0); PLATELET COUNT AUTOMATED 248 10*3/uL (130-400); RED BLOOD COUNT 3.76 10*6/uL (4.50-5.90); WHITE BLOOD COUNT 13.3 10*3/uL (4.8-10.8)
[2017-06-05 05:51] LABS: ALBUMIN 2.8 gm/dl (3.1-4.5); BUN 19 mg/dl (7-24); CHLORIDE 109 mmol/L (98-107); CHOLESTEROL 175 mg/dL (<200); CREATININE 1.27 mg/dL (0.70-1.30); LIPASE 355 U/L (73-393); PHOSPHOROUS 3.2 mg/dL (2.5-4.9); POTASSIUM 3.7 mmol/L (3.5-5.1); SGOT/AST 12 IU/L (3-35); SGPT/ALT 18 U/L (12-78); TOTAL PROTEIN 5.8 gm/dL (6.4-8.2); TRIGLYCERIDES 288 mg/dl (<150); VLDL CHOLESTEROL 58 mg/dL (6-40)
[2017-06-05 05:52] LABS: ALKALINE PHOSPHATASE 139 U/L (45-117); HDL CHOLESTEROL 33 mg/dl (40-60); LDL CHOLESTEROL 84 mg/dL (9-159)
[2017-06-05 05:58] LABS: FREE T4 0.83 ng/dl (0.76-1.46)
[2017-06-05 06:08] LABS: SODIUM 142 mmol/L (136-145)
[2017-06-05 07:40] LABS: VITAMIN D, 25-HYDROXY 18.2 ng/mL (30-100)
[2017-06-06] VITALS: BP 146/76
[2017-06-06 07:13] LABS: BASO # 0.1 10*3/uL (0.0-0.1); BASO % 0.6 % (0.0-1.0); EOS # 0.8 10*3/uL (0.0-0.4); HEMATOCRIT 38.4 % (42.0-52.0); HEMOGLOBIN 12.5 g/dl (14.0-18.0); LYMPH # 2.9 10*3/uL (1.3-4.4); LYMPH % 30.8 % (27.0-41.0); MEAN CELL VOLUME 91.2 fl (80.0-94.0); MEAN CORPUSCULAR HGB 29.7 pg (27.0-31.0); MEAN CORPUSCULAR HGB CONC 32.6 g/dl (33.0-37.0); MEAN PLATELET VOLUME 10.5 fl (9.6-12.3); MONO # 0.8 10*3/uL (0.1-1.0); NEUT # 4.8 10*3/uL (2.3-7.9); NEUT % 51.3 % (47.0-73.0); PLATELET COUNT AUTOMATED 284 10*3/uL (130-400); RED BLOOD COUNT 4.21 10*6/uL (4.50-5.90); WHITE BLOOD COUNT 9.3 10*3/uL (4.8-10.8)
[2017-06-06 07:44] LABS: BUN 17 mg/dl (7-24); CHLORIDE 108 mmol/L (98-107); CREATININE 1.09 mg/dL (0.70-1.30); POTASSIUM 3.7 mmol/L (3.5-5.1); SODIUM 141 mmol/L (136-145)
[2017-06-06 08:00] VITALS: BP 166/90
[2017-06-06 12:00] VITALS: BP 153/80
[2017-06-06 16:00] VITALS: BP 152/86
== END 2017-06-06 21:09 | disposition left against medical advice (07) | DRG 871 ==
LOC: ED 00:30 → ICCU 03:08 → EDHOLD 03:08 → 5E 03:08 → ICCU 03:21 → 5E 14:25
PROVIDERS: Hospitalist; Physician Assistant; Student in an Organized Health Care Education/Training Program
DX: A41.9 Sepsis, unspecified organism (principal); J18.9 Pneumonia, unspecified organism; N17.0 Acute kidney failure with tubular necrosis; K85.90 Acute pancreatitis without necrosis or infection, unspecified; E44.0 Moderate protein-calorie malnutrition; E10.22 Type 1 diabetes mellitus with diabetic chronic kidney disease; K31.84 Gastroparesis; E87.1 Hypo-osmolality and hyponatremia; E10.40 Type 1 diabetes mellitus with diabetic neuropathy, unspecified; L97.909 Non-pressure chronic ulcer of unspecified part of unspecified lower leg with unspecified severity; F33.9 Major depressive disorder, recurrent, unspecified; M54.5 Low back pain; G89.29 Other chronic pain; F17.210 Nicotine dependence, cigarettes, uncomplicated; N18.9 Chronic kidney disease, unspecified; F12.10 Cannabis abuse, uncomplicated; E78.1 Pure hyperglyceridemia; E10.622 Type 1 diabetes mellitus with other skin ulcer; E10.65 Type 1 diabetes mellitus with hyperglycemia; E10.43 Type 1 diabetes mellitus with diabetic autonomic (poly)neuropathy; R07.82 Intercostal pain; D64.9 Anemia, unspecified; F14.10 Cocaine abuse, uncomplicated; Z71.6 Tobacco abuse counseling; Z79.4 Long term (current) use of insulin; Z82.49 Family history of ischemic heart disease and other diseases of the circulatory system; Z87.442 Personal history of urinary calculi; Z90.49 Acquired absence of other specified parts of digestive tract; Z83.3 Family history of diabetes mellitus; Z80.9 Family history of malignant neoplasm, unspecified; Z79.899 Other long term (current) drug therapy; Z68.22 Body mass index [BMI] 22.0-22.9, adult

== ENCOUNTER 2017-06-14 19:56 | Inpatient (IN) | payer OTHER ==
[~2017-06-14] VITALS: Ht 165.1 cm; Wt 61.9 kg
--- NOTE | ~2017-06-14 | CON ---
[place], [place] REPORT OF CONSULTATION NAME: VELASQUEZ IRBY [facility] #: [id number] UNIT #: [id number] ROOM: 515 DOCTOR: ELEUTERIO COULTER DPM BIRTHDATE: [birth year] DOS: 06/15/2017 SUBJECTIVE: The patient is seen for a chief complaint of ulceration on the posterior left Achilles tendon area. The patient has had numerous surgical procedures and followed for the ulceration previously. PAST MEDICAL HISTORY: The patient has a past medical history of previous Achilles rupture, avulsion fracture of calcaneus, chronic kidney disease, lower back pain, cocaine abuse, diabetes type 1 uncontrolled, diabetic gastroparesis associated with type 1 diabetes, diabetic neuropathy, diabetic ulcer to lower leg, history of noncompliance with medical treatment, hypertriglyceridemia, IV drug user, major depressive disorder, nephrolithiasis, vitamin D deficiency. PAST SURGICAL HISTORY: Cholecystectomy, tonsillectomy, chest tube placement. SOCIAL HISTORY: Cocaine abuse. Does not drink alcohol. IV drug user, marijuana abuse, tobacco abuse 1 pack per day. FAMILY HISTORY: Mother, history of diabetes type 2, age 60 plus. Father at age 55 of [place]. ALLERGIES: No known allergies. PHYSICAL EXAMINATION: LOWER EXTREMITY: Pedal pulses are palpable, but diminished. Diminished epicritic sensations. There is an ulceration to the posterior aspect of the left ankle, overlying the Achilles tendon. It is full thickness to subcutaneous tissue level. No signs of erythema. No signs of infection. No signs of deep sinus tract. No exposed tendon. Appears improved from the previous visit with the patient in house in April. ASSESSMENT: Diabetic ulceration, posterior left ankle. PLAN: Evaluation and management. Ordered Bactroban and dressing to be applied daily. If patient is still in house next week, I will check the ulceration at that time. ELEUTERIO COULTER DPM CM:CONSTR:REPORT OF CONSULTATION 1223 06/21/17 0759 interface
[2017-06-14 20:27] VITALS: BP 162/100
[2017-06-14 21:13] LABS: BASO # 0.1 10*3/uL (0.0-0.1); BASO % 0.6 % (0.0-1.0); EOS # 0.5 10*3/uL (0.0-0.4); EOS % 4.6 % (1.0-4.0); HEMATOCRIT 38.2 % (42.0-52.0); HEMOGLOBIN 12.6 g/dl (14.0-18.0); LYMPH # 2.9 10*3/uL (1.3-4.4); LYMPH % 29.8 % (27.0-41.0); MEAN CELL VOLUME 90.1 fl (80.0-94.0); MEAN CORPUSCULAR HGB 29.7 pg (27.0-31.0); MEAN PLATELET VOLUME 10.3 fl (9.6-12.3); MONO # 0.7 10*3/uL (0.1-1.0); MONO % 6.9 % (3.0-9.0); NEUT # 5.6 10*3/uL (2.3-7.9); NEUT % 57.8 % (47.0-73.0); PLATELET COUNT AUTOMATED 302 10*3/uL (130-400); RED BLOOD COUNT 4.24 10*6/uL (4.50-5.90); RED CELL DISTRI WIDTH 15.1 % (0-14.5); WHITE BLOOD COUNT 9.7 10*3/uL (4.8-10.8)
[2017-06-14 21:24] LABS: ACT PARTIAL THROMBO TIME 25.5 SECONDS (20.8-31.5); INTERNATIONAL NORM RATIO 0.9 (2.0-3.5)
[2017-06-14 21:28] LABS: ALBUMIN 3.3 gm/dl (3.1-4.5); ALKALINE PHOSPHATASE 148 U/L (45-117); BUN 23 mg/dl (7-24); CHLORIDE 98 mmol/L (98-107); CREATININE 1.62 mg/dL (0.70-1.30); LIPASE 265 U/L (73-393); POTASSIUM 4.8 mmol/L (3.5-5.1); SGOT/AST 15 IU/L (3-35); SGPT/ALT 17 U/L (12-78); SODIUM 134 mmol/L (136-145); TOTAL PROTEIN 6.9 gm/dL (6.4-8.2)
[2017-06-14 21:30] LABS: TROPONIN I < 0.015 ng/ml (<0.045)
[2017-06-14 21:33] VITALS: BP 132/72
[2017-06-14 22:18] VITALS: BP 119/68
[2017-06-15] VITALS (7 sets, daily range): BP systolic 143–177; BP diastolic 72–96
[2017-06-15 06:13] LABS: BILIRUBIN NEGATIVE (NEGATIVE); BLOOD TRACE-INTACT (NEGATIVE); CLARITY SL CLOUDY (CLEAR); COLOR YELLOW (YELLOW); GLUCOSE 2+ (NEGATIVE); KETONE NEGATIVE (NEGATIVE); LEUKO ESTERASE NEGATIVE (NEGATIVE); NITRITE NEGATIVE (NEGATIVE); PH 6.5 (5.0-9.0); UROBILINOGEN 0.2 E.U./dl (0.2-1.0)
[2017-06-15 06:36] LABS: RBC 21-30 rbc/hpf (0-2); WBC 16-20 wbc/hpf (0-5); YEAST 2+
[2017-06-15 06:51] LABS: BASO # 0.1 10*3/uL (0.0-0.1); BASO % 0.6 % (0.0-1.0); EOS # 0.9 10*3/uL (0.0-0.4); EOS % 6.9 % (1.0-4.0); HEMATOCRIT 37.8 % (42.0-52.0); HEMOGLOBIN 12.4 g/dl (14.0-18.0); LYMPH # 4.7 10*3/uL (1.3-4.4); LYMPH % 35.3 % (27.0-41.0); MEAN CELL VOLUME 91.1 fl (80.0-94.0); MEAN CORPUSCULAR HGB 29.9 pg (27.0-31.0); MEAN CORPUSCULAR HGB CONC 32.8 g/dl (33.0-37.0); MONO % 7.6 % (3.0-9.0); NEUT # 6.6 10*3/uL (2.3-7.9); NEUT % 49.2 % (47.0-73.0); PLATELET COUNT AUTOMATED 320 10*3/uL (130-400); RED BLOOD COUNT 4.15 10*6/uL (4.50-5.90); WHITE BLOOD COUNT 13.4 10*3/uL (4.8-10.8)
[2017-06-15 07:37] LABS: ALBUMIN 3.1 gm/dl (3.1-4.5); ALKALINE PHOSPHATASE 135 U/L (45-117); BUN 21 mg/dl (7-24); CHLORIDE 109 mmol/L (98-107); CREATININE 1.11 mg/dL (0.70-1.30); PHOSPHOROUS 2.9 mg/dL (2.5-4.9); SGOT/AST 15 IU/L (3-35); SGPT/ALT 18 U/L (12-78); TOTAL PROTEIN 6.4 gm/dL (6.4-8.2)
[2017-06-15 07:57] LABS: SODIUM 141 mmol/L (136-145)
[2017-06-15 07:58] LABS: POTASSIUM 3.8 mmol/L (3.5-5.1)
[2017-06-16] VITALS: BP 145/77
[2017-06-16 06:38] LABS: BASO # 0.1 10*3/uL (0.0-0.1); BASO % 0.6 % (0.0-1.0); EOS # 0.9 10*3/uL (0.0-0.4); EOS % 9.5 % (1.0-4.0); HEMATOCRIT 36.4 % (42.0-52.0); HEMOGLOBIN 11.8 g/dl (14.0-18.0); LYMPH # 2.6 10*3/uL (1.3-4.4); LYMPH % 27.3 % (27.0-41.0); MEAN CELL VOLUME 90.5 fl (80.0-94.0); MEAN CORPUSCULAR HGB 29.4 pg (27.0-31.0); MEAN CORPUSCULAR HGB CONC 32.4 g/dl (33.0-37.0); MEAN PLATELET VOLUME 9.7 fl (9.6-12.3); MONO # 0.7 10*3/uL (0.1-1.0); MONO % 7.4 % (3.0-9.0); NEUT # 5.2 10*3/uL (2.3-7.9); NEUT % 54.8 % (47.0-73.0); PLATELET COUNT AUTOMATED 290 10*3/uL (130-400); RED BLOOD COUNT 4.02 10*6/uL (4.50-5.90); RED CELL DISTRI WIDTH 14.8 % (0-14.5); WHITE BLOOD COUNT 9.5 10*3/uL (4.8-10.8)
[2017-06-16 06:58] LABS: BUN 19 mg/dl (7-24); CHLORIDE 108 mmol/L (98-107); CREATININE 1.09 mg/dL (0.70-1.30); POTASSIUM 3.9 mmol/L (3.5-5.1); SODIUM 143 mmol/L (136-145)
[2017-06-16 08:00] VITALS: BP 140/88
[2017-06-16 12:00] VITALS: BP 137/86
[2017-06-16 16:00] VITALS: BP 151/88
== END 2017-06-16 18:49 | disposition left against medical advice (07) | DRG 637 ==
LOC: ED 19:56 → EDHOLD 23:48 → 5E 23:48
PROVIDERS: Hospitalist; Physician Assistant; Student in an Organized Health Care Education/Training Program
DX: E10.65 Type 1 diabetes mellitus with hyperglycemia (principal); N17.0 Acute kidney failure with tubular necrosis; K31.84 Gastroparesis; E10.40 Type 1 diabetes mellitus with diabetic neuropathy, unspecified; F33.9 Major depressive disorder, recurrent, unspecified; E10.621 Type 1 diabetes mellitus with foot ulcer; L89.622 Pressure ulcer of left heel, stage 2; E87.1 Hypo-osmolality and hyponatremia; L97.329 Non-pressure chronic ulcer of left ankle with unspecified severity; E10.43 Type 1 diabetes mellitus with diabetic autonomic (poly)neuropathy; R74.8 Abnormal levels of other serum enzymes; F17.210 Nicotine dependence, cigarettes, uncomplicated; D64.9 Anemia, unspecified; Z53.21 Procedure and treatment not carried out due to patient leaving prior to being seen by health care provider; G89.29 Other chronic pain; M54.5 Low back pain; E10.22 Type 1 diabetes mellitus with diabetic chronic kidney disease; E78.1 Pure hyperglyceridemia; N18.3 Chronic kidney disease, stage 3 (moderate); Z91.19 Patient's noncompliance with other medical treatment and regimen; Z80.9 Family history of malignant neoplasm, unspecified; Z71.6 Tobacco abuse counseling; Z87.442 Personal history of urinary calculi; Z79.4 Long term (current) use of insulin; Z90.49 Acquired absence of other specified parts of digestive tract; Z83.3 Family history of diabetes mellitus; Z82.49 Family history of ischemic heart disease and other diseases of the circulatory system; Z87.81 Personal history of (healed) traumatic fracture

== ENCOUNTER 2017-06-22 19:47 | Emergency (ER) | payer OTHER ==
[~2017-06-22] VITALS: Ht 165.1 cm; Wt 59.0 kg
[2017-06-22 19:57] VITALS: BP 156/82
[2017-06-22 20:31] LABS: BASO % 0.3 % (0.0-1.0); EOS # 0.2 10*3/uL (0.0-0.4); EOS % 2.2 % (1.0-4.0); HEMATOCRIT 41.7 % (42.0-52.0); LYMPH # 2.7 10*3/uL (1.3-4.4); LYMPH % 30.2 % (27.0-41.0); MEAN CELL VOLUME 87.4 fl (80.0-94.0); MEAN CORPUSCULAR HGB 29.4 pg (27.0-31.0); MEAN CORPUSCULAR HGB CONC 33.6 g/dl (33.0-37.0); MEAN PLATELET VOLUME 10.3 fl (9.6-12.3); MONO # 0.7 10*3/uL (0.1-1.0); MONO % 7.2 % (3.0-9.0); NEUT # 5.4 10*3/uL (2.3-7.9); NEUT % 59.8 % (47.0-73.0); PLATELET COUNT AUTOMATED 289 10*3/uL (130-400); RED BLOOD COUNT 4.77 10*6/uL (4.50-5.90); RED CELL DISTRI WIDTH 13.7 % (0-14.5)
[2017-06-22 20:48] LABS: ALBUMIN 4.1 gm/dl (3.1-4.5); ALKALINE PHOSPHATASE 179 U/L (45-117); BUN 20 mg/dl (7-24); CHLORIDE 93 mmol/L (98-107); CREATININE 1.69 mg/dL (0.70-1.30); POTASSIUM 3.9 mmol/L (3.5-5.1); SGOT/AST 18 IU/L (3-35); SGPT/ALT 32 U/L (12-78); SODIUM 132 mmol/L (136-145); TOTAL PROTEIN 7.7 gm/dL (6.4-8.2); TROPONIN I < 0.015 ng/ml (<0.045)
[2017-06-22] MEDS ORDERED: CEPHALEXIN500 M1 PO (21:10)
== END 2017-06-22 21:18 | disposition home or self-care (01) ==
LOC: ED 19:47
PROVIDERS: Nurse Practitioner Family
DX: L08.9 Local infection of the skin and subcutaneous tissue, unspecified (principal); E10.40 Type 1 diabetes mellitus with diabetic neuropathy, unspecified; E10.43 Type 1 diabetes mellitus with diabetic autonomic (poly)neuropathy; E10.621 Type 1 diabetes mellitus with foot ulcer; K31.84 Gastroparesis; F17.200 Nicotine dependence, unspecified, uncomplicated; Z98.890 Other specified postprocedural states; Z79.899 Other long term (current) drug therapy

== ENCOUNTER 2017-06-29 00:02 | Inpatient (IN) | payer OTHER ==
[2017-06-29] VITALS (7 sets, daily range): BP systolic 128–183; BP diastolic 76–103
[~2017-06-29] VITALS: Ht 165.1 cm; Wt 59.9 kg
--- NOTE | ~2017-06-29 | PR ---
[place], [place] PROGRESS NOTE NAME: VELASQUEZ IRBY [facility] #: [id number] UNIT #: [id number] ROOM: 529 DOCTOR: ELEUTERIO COULTER DPM BIRTHDATE: [birth year] DOS: 07/01/2017 SUBJECTIVE: The patient was seen for followup of ulceration, posterior left ankle, posterior Achilles tendon. The patient was not wearing his dressing in bed as directed. He stated that he takes it off because it irritates the nerve in his ankle. OBJECTIVE: Ulceration posterior left ankle, full thickness to subcutaneous tissue level. There is no edema, erythema, is granulating well. There is scant amount of serous drainage noted. The patient's wound culture revealed Staph aureus. ASSESSMENT: Ulceration, posterior left ankle. PLAN: Evaluation and management discussed with the patient in need to keep the silver alginate dressing on the area to help alleviate the localized infection and help with granulation of the wound. Again, the patient does not need surgical intervention and should heal if he is compliant with the dressings. We will check the patient on Monday if he is still inhouse. ELEUTERIO COULTER DPM CM:KEMAL [phone] ELEUTERIO COULTER DPM 07/01/17 1022 interface
--- NOTE | ~2017-06-29 | PR ---
[place], [place] PROGRESS NOTE [facility] [id number] UNIT #: [id number] ROOM: 529 DOCTOR: DAVID LOMBARDO DPM BIRTHDATE: [birth year] DOS: 06/30/2017 SUBJECTIVE: This patient is seen for followup of posterior ankle ulcer near the Achilles tendon, left side. He really has no complaints as far as the wound goes. He has a history of being very noncompliant with followups and he readily admits that. OBJECTIVE: EXTREMITIES: Pedal pulses are palpable. Sensations are significantly diminished. Ulceration posterior left ankle is full thickness to subcutaneous level. No surrounding edema or erythema. It is fairly clean and granular. No signs of infection clinically. The ulceration looks much better than when I have seen in the past. No tendon is exposed at this time. ASSESSMENT: Diabetic ulcer, posterior left ankle, chronic in nature. The patient noncompliance. PLAN: Evaluation and management. Would recommend continuing with the daily dressing changes, continue with offloading as much as possible. Check on cultures tomorrow, but clinically does not look infected. Continue to follow up in the hospital. DAVID LOMBARDO DPM CM:PNGABRIEL [id number] DAVID LOMBARDO DPM 06/30/17 1151 interface
--- NOTE | ~2017-06-29 | CON ---
[place], [place] REPORT OF CONSULTATION NAME: VELASQUEZ IRBY UNIT #: [id number] ROOM: 529 DOCTOR: ELEUTERIO COULTER DPM BIRTHDATE: [birth year] DOS: 06/29/2017 SUBJECTIVE: The patient is a 36-year-old male seen for followup of chronic ulceration on posterior Achilles tendon area of the left ankle. We have seen the patient numerous times previously. He has been noncompliant in followup and following the orders for the wound care. PAST MEDICAL HISTORY: The patient has a past medical history of Achilles rupture, left avulsion fracture of calcaneus, chronic kidney disease, chronic low back pain, diabetic, gastroparesis associated type 1 diabetes, diabetic neuropathy, diabetic ulceration in left lower leg, history of noncompliance with medical treatment, hypertriglyceridemia, IV drug user, major depressive disorder, nephrolithiasis, tobacco abuse counseling type 1 diabetes, hyperglycemia, long-term current use of insulin, vitamin D deficiency, wound in left ankle. PAST SURGICAL HISTORY: Chest tube placement, cholecystectomy, esophagogastroduodenoscopy, tonsillectomy. SOCIAL HISTORY: Intravenous drug use, cocaine abuse, marijuana abuse, tobacco abuse. PHYSICAL EXAMINATION: LOWER EXTREMITY EXAMINATION: Pedal pulses are palpable, diminished epicritic sensations. There is an ulceration in posterior left ankle with full thickness to subcutaneous tissue level. There is mild serous drainage noted. No signs of localized erythema or abscess. The ulceration overall is improving since the patient's previous exam. ASSESSMENT: Diabetic ulceration, posterior left ankle. PLAN: Evaluation and management. Ordered culture of the serous drainage. Ordered silver alginate and gauze dressing to be applied daily. Discussed with the patient, I do not think he needs surgical intervention. I think the patient's ulceration were granulated if he is in compliance with the wound care regimen prescribed. The patient may be a candidate for application of an allograft, but I do not think surgical intervention is warranted at this time. We will follow the patient tomorrow. Thank you for the consultation. [place], [place] REPORT OF CONSULTATION NAME: VELASQUEZ IRBY UNIT #: [id number] ROOM: 529 DOCTOR: ELEUTERIO COULTER DPM BIRTHDATE: [birth year] ELEUTERIO COULTER DPM CM:CONSTR:REPORT OF CONSULTATION 1227 06/29/17 1347 interface
[2017-06-29 01:12] LABS: BASO # 0.1 10*3/uL (0.0-0.1); BASO % 0.5 % (0.0-1.0); EOS # 0.4 10*3/uL (0.0-0.4); EOS % 3.8 % (1.0-4.0); HEMATOCRIT 37.2 % (42.0-52.0); HEMOGLOBIN 12.2 g/dl (14.0-18.0); LYMPH # 2.1 10*3/uL (1.3-4.4); LYMPH % 22.5 % (27.0-41.0); MEAN CELL VOLUME 90.7 fl (80.0-94.0); MEAN CORPUSCULAR HGB 29.8 pg (27.0-31.0); MEAN CORPUSCULAR HGB CONC 32.8 g/dl (33.0-37.0); MEAN PLATELET VOLUME 10.9 fl (9.6-12.3); MONO % 10.7 % (3.0-9.0); NEUT # 5.7 10*3/uL (2.3-7.9); NEUT % 61.7 % (47.0-73.0); PLATELET COUNT AUTOMATED 309 10*3/uL (130-400); RED CELL DISTRI WIDTH 14.5 % (0-14.5); WHITE BLOOD COUNT 9.2 10*3/uL (4.8-10.8)
[2017-06-29 01:37] LABS: ALBUMIN 3.2 gm/dl (3.1-4.5); ALKALINE PHOSPHATASE 184 U/L (45-117); BUN 16 mg/dl (7-24); CHLORIDE 95 mmol/L (98-107); CREATININE 1.75 mg/dL (0.70-1.30); LIPASE 357 U/L (73-393); POTASSIUM 4.2 mmol/L (3.5-5.1); SGOT/AST 23 IU/L (3-35); SGPT/ALT 30 U/L (12-78); SODIUM 130 mmol/L (136-145); TOTAL PROTEIN 6.8 gm/dL (6.4-8.2)
[2017-06-29 01:41] LABS: ETHYL ALCOHOL < 3.0 mg/dl (<3); TROPONIN I < 0.015 ng/ml (<0.045)
[2017-06-29 01:58] LABS: BILIRUBIN NEGATIVE (NEGATIVE); BLOOD 1+ (NEGATIVE); CLARITY CLEAR (CLEAR); COLOR YELLOW (YELLOW); GLUCOSE 3+ (NEGATIVE); KETONE NEGATIVE (NEGATIVE); LEUKO ESTERASE NEGATIVE (NEGATIVE); NITRITE NEGATIVE (NEGATIVE); SPECIFIC GRAVITY <= 1.005 (1.005-1.030); UROBILINOGEN 0.2 E.U./dl (0.2-1.0)
[2017-06-29 02:08] LABS: URINE AMPHETAMINES < 1000 (1000ng/ml); URINE BARBITURATES < 200 (200ng/ml); URINE BENZODIAZEPINES < 200 (200ng/ml); URINE CANNABINOIDS (THC) < 50 (50ng/ml); URINE COCAINE > 300 (300ng/ml); URINE METHADONE < 300 (300ng/ml); URINE OPIATES < 300 (300ng/ml); URINE PHENCYCLIDINE < 25 (25ng/ml)
[2017-06-30] VITALS: BP 138/90
[2017-06-30 05:37] LABS: ALBUMIN 3.1 gm/dl (3.1-4.5); ALKALINE PHOSPHATASE 153 U/L (45-117); BUN 14 mg/dl (7-24); CHLORIDE 110 mmol/L (98-107); CREATININE 1.06 mg/dL (0.70-1.30); POTASSIUM 3.5 mmol/L (3.5-5.1); SGOT/AST 22 IU/L (3-35); SGPT/ALT 27 U/L (12-78); TOTAL PROTEIN 6.4 gm/dL (6.4-8.2)
[2017-06-30 05:38] LABS: SODIUM 142 mmol/L (136-145)
[2017-06-30 06:17] LABS: HEMOGLOBIN 12.6 g/dl (14.0-18.0); MEAN CELL VOLUME 90.9 fl (80.0-94.0); MEAN CORPUSCULAR HGB 29.4 pg (27.0-31.0); MEAN CORPUSCULAR HGB CONC 32.3 g/dl (33.0-37.0); MEAN PLATELET VOLUME 10.4 fl (9.6-12.3); RED BLOOD COUNT 4.29 10*6/uL (4.50-5.90); RED CELL DISTRI WIDTH 14.9 % (0-14.5); WHITE BLOOD COUNT 15.2 10*3/uL (4.8-10.8)
[2017-06-30 06:33] LABS: PLATELET COUNT AUTOMATED 404 10*3/uL (130-400)
[2017-06-30 07:24] LABS: BASOPHILS 2 % (0-1); PLATELET SUFFICIENCY NORMAL (NORMAL); TOTAL CELLS COUNTED 100 #CELLS
[2017-06-30 07:45] VITALS: BP 139/87
[2017-06-30 12:00] VITALS: BP 148/88
[2017-06-30 16:00] VITALS: BP 158/97
[2017-06-30 20:00] VITALS: BP 147/90
[2017-07-01] VITALS: BP 146/88
[2017-07-01 07:47] LABS: BASO # 0.1 10*3/uL (0.0-0.1); BASO % 0.7 % (0.0-1.0); EOS # 0.5 10*3/uL (0.0-0.4); EOS % 6.7 % (1.0-4.0); HEMATOCRIT 35.8 % (42.0-52.0); HEMOGLOBIN 11.7 g/dl (14.0-18.0); LYMPH # 2.6 10*3/uL (1.3-4.4); MEAN CELL VOLUME 91.1 fl (80.0-94.0); MEAN CORPUSCULAR HGB 29.8 pg (27.0-31.0); MEAN CORPUSCULAR HGB CONC 32.7 g/dl (33.0-37.0); MEAN PLATELET VOLUME 10.4 fl (9.6-12.3); MONO # 1.1 10*3/uL (0.1-1.0); MONO % 13.9 % (3.0-9.0); NEUT # 3.4 10*3/uL (2.3-7.9); NEUT % 44.2 % (47.0-73.0); RED BLOOD COUNT 3.93 10*6/uL (4.50-5.90); RED CELL DISTRI WIDTH 14.9 % (0-14.5); WHITE BLOOD COUNT 7.6 10*3/uL (4.8-10.8)
[2017-07-01 07:48] LABS: PLATELET COUNT AUTOMATED 281 10*3/uL (130-400)
[2017-07-01 08:00] VITALS: BP 160/96
[2017-07-01 08:05] LABS: BUN 19 mg/dl (7-24); CHLORIDE 106 mmol/L (98-107); CREATININE 1.02 mg/dL (0.70-1.30); POTASSIUM 3.6 mmol/L (3.5-5.1); SODIUM 140 mmol/L (136-145)
[2017-07-01 12:00] VITALS: BP 137/90
[2017-07-01 16:00] VITALS: BP 153/94
[2017-07-01 20:00] VITALS: BP 147/84
[2017-07-02] VITALS: BP 143/86
[2017-07-02 07:21] LABS: BASO # 0.1 10*3/uL (0.0-0.1); BASO % 0.6 % (0.0-1.0); EOS # 0.6 10*3/uL (0.0-0.4); EOS % 6.6 % (1.0-4.0); HEMATOCRIT 34.8 % (42.0-52.0); HEMOGLOBIN 11.4 g/dl (14.0-18.0); LYMPH # 2.9 10*3/uL (1.3-4.4); LYMPH % 32.7 % (27.0-41.0); MEAN CELL VOLUME 91.3 fl (80.0-94.0); MEAN CORPUSCULAR HGB 29.9 pg (27.0-31.0); MEAN CORPUSCULAR HGB CONC 32.8 g/dl (33.0-37.0); MEAN PLATELET VOLUME 10.2 fl (9.6-12.3); MONO # 1.1 10*3/uL (0.1-1.0); MONO % 12.1 % (3.0-9.0); NEUT # 4.2 10*3/uL (2.3-7.9); NEUT % 47.3 % (47.0-73.0); PLATELET COUNT AUTOMATED 274 10*3/uL (130-400); RED BLOOD COUNT 3.81 10*6/uL (4.50-5.90); RED CELL DISTRI WIDTH 14.9 % (0-14.5); WHITE BLOOD COUNT 8.8 10*3/uL (4.8-10.8)
[2017-07-02 07:49] LABS: BUN 24 mg/dl (7-24); CHLORIDE 105 mmol/L (98-107); CREATININE 1.07 mg/dL (0.70-1.30); POTASSIUM 3.7 mmol/L (3.5-5.1); SODIUM 139 mmol/L (136-145)
[2017-07-02 08:00] VITALS: BP 152/92
[2017-07-02 12:00] VITALS: BP 152/91
[2017-07-02] MEDS ORDERED: MUCINEX ER600 MG PO (13:24)
== END 2017-07-02 14:29 | disposition home or self-care (01) | DRG 637 ==
LOC: ED 00:02 → EDHOLD 02:28 → 5E 02:46
PROVIDERS: Emergency Medicine Emergency Medical Services; Family Medicine; Internal Medicine
DX: E10.65 Type 1 diabetes mellitus with hyperglycemia (principal); N17.0 Acute kidney failure with tubular necrosis; K31.84 Gastroparesis; L97.528 Non-pressure chronic ulcer of other part of left foot with other specified severity; F33.9 Major depressive disorder, recurrent, unspecified; E10.42 Type 1 diabetes mellitus with diabetic polyneuropathy; E10.621 Type 1 diabetes mellitus with foot ulcer; E87.1 Hypo-osmolality and hyponatremia; Z66 Do not resuscitate; E10.22 Type 1 diabetes mellitus with diabetic chronic kidney disease; G89.29 Other chronic pain; N18.9 Chronic kidney disease, unspecified; F14.10 Cocaine abuse, uncomplicated; D64.9 Anemia, unspecified; R74.8 Abnormal levels of other serum enzymes; F17.210 Nicotine dependence, cigarettes, uncomplicated; E55.9 Vitamin D deficiency, unspecified; F12.10 Cannabis abuse, uncomplicated; F19.10 Other psychoactive substance abuse, uncomplicated; E10.43 Type 1 diabetes mellitus with diabetic autonomic (poly)neuropathy; Z51.5 Encounter for palliative care; M54.5 Low back pain; Z87.81 Personal history of (healed) traumatic fracture; Z87.442 Personal history of urinary calculi; Z71.6 Tobacco abuse counseling; Z90.49 Acquired absence of other specified parts of digestive tract; Z82.49 Family history of ischemic heart disease and other diseases of the circulatory system; Z80.9 Family history of malignant neoplasm, unspecified; Z83.3 Family history of diabetes mellitus; Z91.19 Patient's noncompliance with other medical treatment and regimen

== ENCOUNTER → 2017-11-27 | Outpatient (CLI) | payer OTHER ==
[~2017-11-27] MED LIST changes: +MUCINEX ER600 MG PO
== END | disposition home or self-care (01) ==
LOC: RESCLI 03:44
DX: Z00.01 Encounter for general adult medical examination with abnormal findings (principal); I10 Essential (primary) hypertension; E10.65 Type 1 diabetes mellitus with hyperglycemia; K21.9 Gastro-esophageal reflux disease without esophagitis; E55.9 Vitamin D deficiency, unspecified; G62.9 Polyneuropathy, unspecified; T14.90XD Injury, unspecified, subsequent encounter; F32.9 Major depressive disorder, single episode, unspecified; Z90.49 Acquired absence of other specified parts of digestive tract; Z72.0 Tobacco use

== ENCOUNTER 2018-02-06 14:22 | Emergency (ER) | payer SELFPAY ==
[~2018-02-06] VITALS: Ht 165.1 cm; Wt 59.0 kg
[2018-02-06 14:24] VITALS: BP 151/102
[2018-02-06 14:53] LABS: BASO % 0.2 % (0.0-1.0); EOS % 0.2 % (1.0-4.0); HEMATOCRIT 38.9 % (42.0-52.0); HEMOGLOBIN 12.8 g/dl (14.0-18.0); LYMPH # 1.9 10*3/uL (1.3-4.4); LYMPH % 11.2 % (27.0-41.0); MEAN CELL VOLUME 92.6 fl (80.0-94.0); MEAN CORPUSCULAR HGB 30.5 pg (27.0-31.0); MEAN CORPUSCULAR HGB CONC 32.9 g/dl (33.0-37.0); MONO # 0.8 10*3/uL (0.1-1.0); MONO % 4.7 % (3.0-9.0); NEUT # 14.1 10*3/uL (2.3-7.9); NEUT % 83.2 % (47.0-73.0); PLATELET COUNT AUTOMATED 279 10*3/uL (130-400)
[2018-02-06 15:09] LABS: ALBUMIN 3.2 gm/dl (3.1-4.5); ALKALINE PHOSPHATASE 134 U/L (45-117); BUN 12 mg/dl (7-24); CHLORIDE 108 mmol/L (98-107); CREATININE 1.09 mg/dL (0.70-1.30); LIPASE 293 U/L (73-393); POTASSIUM 3.4 mmol/L (3.5-5.1); SGOT/AST 14 IU/L (3-35); SGPT/ALT 17 U/L (12-78); SODIUM 142 mmol/L (136-145); TOTAL PROTEIN 6.8 gm/dL (6.4-8.2)
[2018-03-05] MEDS ORDERED: NOVOLOG FL100 UNIT/1 SQ (17:53)
== END 2018-02-06 16:20 | disposition left against medical advice (07) ==
LOC: ED 14:22
PROVIDERS: Nurse Practitioner Family
DX: D72.829 Elevated white blood cell count, unspecified (principal); R10.13 Epigastric pain; R51 Headache; I10 Essential (primary) hypertension; K21.9 Gastro-esophageal reflux disease without esophagitis; E11.43 Type 2 diabetes mellitus with diabetic autonomic (poly)neuropathy; K31.84 Gastroparesis; F17.200 Nicotine dependence, unspecified, uncomplicated; Z79.4 Long term (current) use of insulin; Z79.899 Other long term (current) drug therapy; Z90.49 Acquired absence of other specified parts of digestive tract

== ENCOUNTER 2019-04-10 09:39 | Inpatient (IN) | payer MEDICAID ==
[~2019-04-10] VITALS: Ht 165.1 cm; Wt 52.3 kg
--- NOTE | ~2019-04-10 | EKG ---
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
[~2019-04-10 09:39] MED LIST changes: +NOVOLOG FL100 UNIT/1 SQ
[2019-04-10 09:43] VITALS: BP 130/66
[2019-04-10 10:11] LABS: BASO # 0.1 10*3/uL (0.0-0.1); BASO % 0.3 % (0.0-1.0); EOS % 0.1 % (1.0-4.0); HEMATOCRIT 47.6 % (42.0-52.0); HEMOGLOBIN 14.8 g/dl (14.0-18.0); LYMPH # 1.4 10*3/uL (1.3-4.4); LYMPH % 7.6 % (27.0-41.0); MEAN CELL VOLUME 95.8 fl (80.0-94.0); MEAN CORPUSCULAR HGB 29.8 pg (27.0-31.0); MEAN CORPUSCULAR HGB CONC 31.1 g/dl (33.0-37.0); MEAN PLATELET VOLUME 10.8 fl (9.6-12.3); MONO # 0.5 10*3/uL (0.1-1.0); MONO % 2.5 % (3.0-9.0); NEUT # 15.6 10*3/uL (2.3-7.9); NEUT % 88.5 % (47.0-73.0); PLATELET COUNT AUTOMATED 412 10*3/uL (130-400); RED BLOOD COUNT 4.97 10*6/uL (4.50-5.90); RED CELL DISTRI WIDTH 14.4 % (0-14.5); WHITE BLOOD COUNT 17.7 10*3/uL (4.8-10.8)
[2019-04-10 10:24] LABS: ACT PARTIAL THROMBO TIME 23.6 SECONDS (20.0-32.1); INTERNATIONAL NORM RATIO 0.9 (2.0-3.5)
[2019-04-10 10:28] LABS: ALBUMIN 3.7 gm/dl (3.1-4.5); ALKALINE PHOSPHATASE 169 U/L (45-117); BUN 47 mg/dl (7-24); CHLORIDE 98 mmol/L (98-107); CREATININE 2.17 mg/dL (0.70-1.30); POTASSIUM 5.3 mmol/L (3.5-5.1); SGOT/AST 27 IU/L (3-35); SGPT/ALT 38 U/L (12-78); SODIUM 135 mmol/L (136-145); TOTAL PROTEIN 7.3 gm/dL (6.4-8.2)
--- NOTE | 2019-04-10 10:30 | NUR ---
NOTIFIED BY LAB THAT PTS LACTIC ACID 3.9. DR REYEZ NOTIFIED.
[2019-04-10 10:33] LABS: TROPONIN I < 0.015 ng/ml (<0.045)
--- NOTE | 2019-04-10 11:08 | NUR ---
NURSE-NURSE REPORT RECEIVED FROM JAYLIN NATHAN.
[2019-04-10 11:12] LABS: BILIRUBIN NEGATIVE (NEGATIVE); BLOOD NEGATIVE (NEGATIVE); CLARITY CLEAR (CLEAR); COLOR STRAW (YELLOW); GLUCOSE 2+ (NEGATIVE); KETONE 3+ (NEGATIVE); LEUKO ESTERASE NEGATIVE (NEGATIVE); NITRITE NEGATIVE (NEGATIVE); PH 5.5 (5.0-9.0); UROBILINOGEN 0.2 E.U./dl (0.2-1.0)
--- NOTE | 2019-04-10 11:14 | NUR ---
PT'S IV SITE INFILTRATED. DR CRISTINA IS PREPARING TO USE US TO ESTABLISH NEW SITE.
[2019-04-10 11:24] LABS: EPITHELIAL CELLS 0-2
[2019-04-10 11:25] LABS: BACTERIA TRACE; WBC 0-2 wbc/hpf (0-5)
[2019-04-10 12:01] VITALS: BP 132/68
[2019-04-10 12:15] VITALS: BP 130/71
--- NOTE | 2019-04-10 12:15 | NUR ---
A 38yr old male, admitted to [facility], under the services of HIRAM Osorio DO with a diagnosis of DKA. Chief complaint is vomiting for several days, out of his Lantus Insulin. Patient arrived via stretcher from ER. Monitor applied. Initial assessment completed. Vital signs taken and recorded. See assessment for past medical history, medications and allergies. Patient and/or family oriented to unit. [facility] visitation policy reviewed. Clothing/patient valuable form completed. Patient claims he doesn't have any Lantus Insulin left, nor any glucometer strips. He was trying to control his sugar with his Humalog Insulin. Patient recently released from group home in [place] 02/20/19. WALTER LITTLE
[2019-04-10 12:51] LABS: CREATININE 2.22 mg/dL (0.70-1.30); POTASSIUM 5.8 mmol/L (3.5-5.1)
--- NOTE | 2019-04-10 12:59 | NUR ---
NOTIFIED OF CRITICAL LAB RESULTS.
[2019-04-10 13:17] LABS: ABG HCO3 7.4 mmol/l (22-26); ABG O2 SATURATION 98.2 % (95-97); ARTERIAL BLOOD GAS PCO2 20.1 mmHg (35-45)
[2019-04-10 13:22] LABS: ABG BASE EXCESS -19.7 mmol/L (-2.0-2.0); ARTERIAL BLOOD GAS PH 7.189 (7.35-7.45)
[2019-04-10 14:47] LABS: CREATININE 2.13 mg/dL (0.70-1.30)
[2019-04-10 14:53] LABS: POTASSIUM 4.5 mmol/L (3.5-5.1)
[2019-04-10 16:00] VITALS: BP 129/66
[2019-04-10 17:13] LABS: CREATININE 1.91 mg/dL (0.70-1.30); POTASSIUM 4.2 mmol/L (3.5-5.1)
[2019-04-10 18:11] LABS: CREATININE 1.87 mg/dL (0.70-1.30); POTASSIUM 3.9 mmol/L (3.5-5.1)
[2019-04-10 20:00] VITALS: BP 128/66
[2019-04-10 21:56] LABS: CREATININE 1.69 mg/dL (0.70-1.30)
[2019-04-11] VITALS: BP 130/71
--- NOTE | 2019-04-11 | NUR ---
PT RESTING IN BED WITH EYES CLOSED, AWAKENS WITH EASE. RESP NONLABORED. NO ACUTE DISTRESS NOTED. NO COMPLAINTS VOICED. IVF'S TURNED OFF PER DR CELESTE ORDER. NO S/S OF HYPO/HYPERGLYCEMIA NOTED.
[2019-04-11 01:05] LABS: BUN 33 mg/dl (7-24); CHLORIDE 113 mmol/L (98-107); CREATININE 1.56 mg/dL (0.70-1.30); POTASSIUM 3.6 mmol/L (3.5-5.1); SODIUM 143 mmol/L (136-145)
[2019-04-11 04:00] VITALS: BP 133/70
[2019-04-11 06:20] LABS: BASO % 0.2 % (0.0-1.0); EOS # 0.1 10*3/uL (0.0-0.4); EOS % 0.6 % (1.0-4.0); HEMATOCRIT 39.5 % (42.0-52.0); HEMOGLOBIN 12.5 g/dl (14.0-18.0); LYMPH # 2.7 10*3/uL (1.3-4.4); LYMPH % 16.5 % (27.0-41.0); MEAN CORPUSCULAR HGB 29.8 pg (27.0-31.0); MEAN CORPUSCULAR HGB CONC 31.6 g/dl (33.0-37.0); MEAN PLATELET VOLUME 10.6 fl (9.6-12.3); MONO # 1.2 10*3/uL (0.1-1.0); NEUT # 12.4 10*3/uL (2.3-7.9); NEUT % 75.2 % (47.0-73.0); PLATELET COUNT AUTOMATED 328 10*3/uL (130-400); RED CELL DISTRI WIDTH 14.5 % (0-14.5); WHITE BLOOD COUNT 16.5 10*3/uL (4.8-10.8)
[2019-04-11 06:22] LABS: ALBUMIN 2.9 gm/dl (3.1-4.5); ALKALINE PHOSPHATASE 124 U/L (45-117); BUN 31 mg/dl (7-24); CHLORIDE 115 mmol/L (98-107); CREATININE 1.52 mg/dL (0.70-1.30); PHOSPHOROUS 2.1 mg/dL (2.5-4.9); POTASSIUM 3.6 mmol/L (3.5-5.1); SGOT/AST 24 IU/L (3-35); SGPT/ALT 28 U/L (12-78); SODIUM 144 mmol/L (136-145); TOTAL PROTEIN 5.7 gm/dL (6.4-8.2)
[2019-04-11 06:29] LABS: THYROID STIM HORMONE (HS) 0.661 uIU/ml (0.358-4.75)
[2019-04-11 06:59] LABS: ACT PARTIAL THROMBO TIME 24.8 SECONDS (20.0-32.1); INTERNATIONAL NORM RATIO 0.9 (2.0-3.5)
--- NOTE | 2019-04-11 07:00 | NUR ---
BS 45, GIVEN OJ WITH SUGAR IN IT, RETAKEN AND BS 74. MEDICATED WITH ZOFRAN FOR C/O NAUSEA.
[2019-04-11 08:00] VITALS: BP 119/80
--- NOTE | 2019-04-11 10:00 | NUR ---
Net Mvc Developer in to talk to patient. Patient states lives at home with his brother. There are 1 steps in the home. Physician: resident clinic Pharmacy: [facility] Home health services: none Patient's level of ADLs: INDEPENDENT Patient has working utilities: yes DME: none Follow-up physician's appointment after d/c: will be made by the hospitalist nurse director upon discharge Does patient want to access PORTAL?: no Discharge plan discussed with patient. He lives at home with his brother in [place]. He is independent in his ADLs and ambulation. Discussed home health care services and he denies any home needs at this time. He states he was released from [facility] on February 20 and was given a month of Lantus. He was in the process of getting his [place] Medicaid reinstated and he ran out of insulin. He was using fast acting and he sugars were up and down. When medically stable he will be discharged to home. His brother or his girlfriend will provide transportation on discharge. MANPREET OWENS
[2019-04-11] MEDS ORDERED: LANTUS SOL100 UNIT/1 SQ (13:56)
[2019-04-11] MEDS ORDERED: ZOFRAN4 MG PO (13:56)
[2019-04-11] MEDS ORDERED: PEN NEEDLE1 EAC1 MC (13:56)
--- NOTE | 2019-04-11 14:32 | NUR ---
DC TO HOME PT VERBALIZED UNDERSTANDING [facility] PT WILL CASH APPLICATIONS SPECIALIST SCRIPTS IN PHARMACY PT GIVEN NUMBER FOR RESIDENT CLINIC FOR FOLLOW UP
== END 2019-04-11 14:32 | disposition home or self-care (01) | DRG 637 ==
LOC: ED 09:39 → EDHOLD 10:35 → ICCU 10:35
PROVIDERS: Emergency Medicine; Hospitalist; Student in an Organized Health Care Education/Training Program; ADMIT Family Medicine
DX: E10.10 Type 1 diabetes mellitus with ketoacidosis without coma (principal); N17.0 Acute kidney failure with tubular necrosis; R65.10 Systemic inflammatory response syndrome (SIRS) of non-infectious origin without acute organ dysfunction; E87.5 Hyperkalemia; R82.4 Acetonuria; R81 Glycosuria; F17.210 Nicotine dependence, cigarettes, uncomplicated; N18.9 Chronic kidney disease, unspecified; G89.29 Other chronic pain; M54.5 Low back pain; F32.9 Major depressive disorder, single episode, unspecified; E10.22 Type 1 diabetes mellitus with diabetic chronic kidney disease; I12.9 Hypertensive chronic kidney disease with stage 1 through stage 4 chronic kidney disease, or unspecified chronic kidney disease; R00.0 Tachycardia, unspecified; D72.829 Elevated white blood cell count, unspecified; F12.10 Cannabis abuse, uncomplicated; E10.42 Type 1 diabetes mellitus with diabetic polyneuropathy; E10.649 Type 1 diabetes mellitus with hypoglycemia without coma; Z66 Do not resuscitate; Z51.5 Encounter for palliative care; Z90.49 Acquired absence of other specified parts of digestive tract; Z79.4 Long term (current) use of insulin; Z79.899 Other long term (current) drug therapy; Z90.89 Acquired absence of other organs; Z82.49 Family history of ischemic heart disease and other diseases of the circulatory system; Z83.3 Family history of diabetes mellitus; Z80.8 Family history of malignant neoplasm of other organs or systems; Z71.6 Tobacco abuse counseling

== ENCOUNTER 2020-10-31 13:03 | Inpatient (IN) | payer OTHER ==
[~2020-10-31] VITALS: Ht 165.1 cm; Wt 61.7 kg
[~2020-10-31 13:03] MED LIST changes: +LANTUS SOL100 UNIT/1 SQ; +PEN NEEDLE1 EAC1 MC
[2020-10-31 13:07] VITALS: BP 154/88
[2020-10-31 14:03] LABS: BASO % 0.4 % (0.0-1.0); EOS % 0.3 % (1.0-4.0); HEMATOCRIT 44.8 % (42.0-52.0); LYMPH # 1.2 10*3/uL (1.3-4.4); LYMPH % 10.6 % (27.0-41.0); MEAN CELL VOLUME 90.7 fl (80.0-94.0); MEAN CORPUSCULAR HGB 29.4 pg (27.0-31.0); MEAN CORPUSCULAR HGB CONC 32.4 g/dl (33.0-37.0); MONO # 0.6 10*3/uL (0.1-1.0); MONO % 5.3 % (3.0-9.0); NEUT # 9.2 10*3/uL (2.3-7.9); NEUT % 82.2 % (47.0-73.0); PLATELET COUNT AUTOMATED 299 10*3/uL (130-400); RED BLOOD COUNT 4.94 10*6/uL (4.50-5.90); RED CELL DISTRI WIDTH 13.2 % (0-14.5); WHITE BLOOD COUNT 11.2 10*3/uL (4.8-10.8)
[2020-10-31 14:22] LABS: ALBUMIN 4.2 gm/dl (3.1-4.5); ALKALINE PHOSPHATASE 265 U/L (45-117); BUN 42 mg/dl (7-24); CHLORIDE 103 mmol/L (98-107); CREATININE 1.98 mg/dL (0.70-1.30); POTASSIUM 4.8 mmol/L (3.5-5.1); SGOT/AST 98 IU/L (3-35); SGPT/ALT 249 U/L (12-78); SODIUM 136 mmol/L (136-145); TOTAL PROTEIN 8.5 gm/dL (6.4-8.2)
[2020-10-31 14:23] LABS: ETHYL ALCOHOL < 3.0 mg/dl (<3)
[2020-10-31] MEDS ORDERED: HUMALOG100 UNIT/2 SC (15:50)
[2020-10-31] MEDS ORDERED: NEURONTIN400 MG PO (15:50)
[2020-10-31] MEDS ORDERED: PRILOSEC20 M1 PO (15:51)
[2020-10-31 16:07] LABS: BILIRUBIN Negative (Negative); BLOOD Trace-Lysed (Negative); CLARITY Clear (Clear); COLOR Yellow (Yellow); GLUCOSE 3+ (Negative); KETONE 1+ (Negative); LEUKO ESTERASE Negative (Negative); NITRITE Negative (Negative); PH 5.5 (4.5-8.0); SPECIFIC GRAVITY >= 1.030 (1.001-1.030)
[2020-10-31 16:15] LABS: URINE AMPHETAMINES < 1000 (1000ng/ml); URINE BARBITURATES < 200 (200ng/ml); URINE BENZODIAZEPINES < 200 (200ng/ml); URINE CANNABINOIDS (THC) < 50 (50ng/ml); URINE COCAINE < 300 (300ng/ml); URINE METHADONE < 300 (300ng/ml); URINE OPIATES < 300 (300ng/ml)
[2020-10-31 16:19] LABS: URINE PHENCYCLIDINE < 25 (25ng/ml)
[2020-10-31 16:22] LABS: RBC 0-2 rbc/hpf (0-2)
[2020-10-31 16:23] LABS: BACTERIA TRACE
[2020-10-31 16:32] VITALS: BP 164/83
[2020-10-31 16:45] VITALS: BP 188/93
[2020-10-31] MEDS ORDERED: NEURONTIN800 MG PO (19:03)
[2020-10-31] MEDS ORDERED: GABAPENTIN600 MG PO (19:04)
[2020-10-31 20:00] VITALS: BP 149/85
[2020-10-31 23:50] VITALS: BP 111/72
[2020-11-01 05:47] LABS: CHLORIDE 115 mmol/L (98-107); CREATININE 1.48 mg/dL (0.70-1.30); SGOT/AST 89 IU/L (3-35); SGPT/ALT 181 U/L (12-78); SODIUM 144 mmol/L (136-145); TOTAL PROTEIN 6.2 gm/dL (6.4-8.2)
[2020-11-01 05:48] LABS: ALKALINE PHOSPHATASE 185 U/L (45-117)
[2020-11-01 06:06] LABS: BUN 26 mg/dl (7-24); POTASSIUM 3.8 mmol/L (3.5-5.1)
[2020-11-01 06:12] LABS: BASO % 0.4 % (0.0-1.0); EOS # 0.3 10*3/uL (0.0-0.4); EOS % 3.9 % (1.0-4.0); HEMATOCRIT 40.4 % (42.0-52.0); LYMPH # 2.4 10*3/uL (1.3-4.4); LYMPH % 34.3 % (27.0-41.0); MEAN CELL VOLUME 91.8 fl (80.0-94.0); MEAN CORPUSCULAR HGB 29.1 pg (27.0-31.0); MEAN CORPUSCULAR HGB CONC 31.7 g/dl (33.0-37.0); MEAN PLATELET VOLUME 11.1 fl (9.6-12.3); MONO # 0.8 10*3/uL (0.1-1.0); NEUT # 3.5 10*3/uL (2.3-7.9); NEUT % 50.3 % (47.0-73.0); PLATELET COUNT AUTOMATED 267 10*3/uL (130-400); RED CELL DISTRI WIDTH 13.5 % (0-14.5); WHITE BLOOD COUNT 6.9 10*3/uL (4.8-10.8)
[2020-11-01 06:47] LABS: VITAMIN D, 25-HYDROXY 37.7 ng/mL (30-100)
[2020-11-01 08:14] VITALS: BP 163/83
[2020-11-01 10:06] LABS: HEP B CORE AB, IGM Negative (Negative); HEPATITIS B SURFACE AG Negative (Negative)
[2020-11-03 08:18] LABS: HEPATITIS C VIRUS ANTIBODY >11.0 s/co (0.0-0.9)
== END 2020-11-01 10:35 | DRG 640 ==
LOC: ED 13:03 → EDHOLD 15:28 → 4E 15:45
PROVIDERS: Emergency Medicine; Internal Medicine; ADMIT Student in an Organized Health Care Education/Training Program; ATTEND Student in an Organized Health Care Education/Training Program
DX: E86.0 Dehydration (principal); N17.0 Acute kidney failure with tubular necrosis; F33.40 Major depressive disorder, recurrent, in remission, unspecified; R74.01 Elevation of levels of liver transaminase levels; E10.65 Type 1 diabetes mellitus with hyperglycemia; E10.42 Type 1 diabetes mellitus with diabetic polyneuropathy; I12.9 Hypertensive chronic kidney disease with stage 1 through stage 4 chronic kidney disease, or unspecified chronic kidney disease; N18.31 Chronic kidney disease, stage 3a; M54.5 Low back pain; G89.29 Other chronic pain; E83.41 Hypermagnesemia; F17.210 Nicotine dependence, cigarettes, uncomplicated; Z90.49 Acquired absence of other specified parts of digestive tract; Z82.49 Family history of ischemic heart disease and other diseases of the circulatory system; Z79.4 Long term (current) use of insulin; Z79.899 Other long term (current) drug therapy

== ENCOUNTER → 2020-12-21 | Outpatient (CLI) | payer OTHER ==
[~2020-12-21] MED LIST changes: +GABAPENTIN600 MG PO; +HUMALOG100 UNIT/2 SC; +NEURONTIN400 MG PO; +PHENERGAN25 M3 PO; +PRILOSEC20 M1 PO
== END | disposition home or self-care (01) ==
LOC: RESCLI 14:27
PROVIDERS: ATTEND Internal Medicine Nephrology
DX: E10.65 Type 1 diabetes mellitus with hyperglycemia (principal); G62.9 Polyneuropathy, unspecified; R76.8 Other specified abnormal immunological findings in serum; R05 Cough; I10 Essential (primary) hypertension; K31.84 Gastroparesis; F17.210 Nicotine dependence, cigarettes, uncomplicated; Z90.49 Acquired absence of other specified parts of digestive tract; Z98.890 Other specified postprocedural states; Z79.899 Other long term (current) drug therapy

== ENCOUNTER 2020-12-22 15:01 | Emergency (ER) | payer OTHER ==
[~2020-12-22] VITALS: Ht 165.1 cm; Wt 61.7 kg
[~2020-12-22 15:01] MED LIST changes: -PHENERGAN25 M3 PO
[2020-12-22 15:07] VITALS: BP 151/97
[2020-12-22 16:11] LABS: BASO % 0.3 % (0.0-1.0); EOS # 0.3 10*3/uL (0.0-0.4); EOS % 2.2 % (1.0-4.0); HEMATOCRIT 48.9 % (42.0-52.0); LYMPH % 14.2 % (27.0-41.0); MEAN CELL VOLUME 89.7 fl (80.0-94.0); MEAN CORPUSCULAR HGB 29.7 pg (27.0-31.0); MEAN CORPUSCULAR HGB CONC 33.1 g/dl (33.0-37.0); MEAN PLATELET VOLUME 10.4 fl (9.6-12.3); MONO # 0.9 10*3/uL (0.1-1.0); MONO % 6.4 % (3.0-9.0); NEUT # 10.7 10*3/uL (2.3-7.9); NEUT % 76.4 % (47.0-73.0); PLATELET COUNT AUTOMATED 346 10*3/uL (130-400); RED BLOOD COUNT 5.45 10*6/uL (4.50-5.90); RED CELL DISTRI WIDTH 13.2 % (0-14.5)
[2020-12-22 16:28] LABS: ALBUMIN 3.3 gm/dl (3.1-4.5); BUN 22 mg/dl (7-24); CHLORIDE 101 mmol/L (98-107); CREATININE 1.42 mg/dL (0.70-1.30); SGOT/AST 270 IU/L (3-35); SGPT/ALT 355 U/L (12-78); SODIUM 132 mmol/L (136-145); TOTAL PROTEIN 7.7 gm/dL (6.4-8.2)
[2020-12-22 16:29] LABS: ALKALINE PHOSPHATASE 355 U/L (45-117)
[2020-12-22] MEDS ORDERED: PHENERGAN25 M3 PO (17:27)
== END 2020-12-22 18:06 | disposition home or self-care (01) ==
LOC: ED 15:01
PROVIDERS: Emergency Medicine
DX: R11.2 Nausea with vomiting, unspecified (principal); E10.65 Type 1 diabetes mellitus with hyperglycemia; R74.01 Elevation of levels of liver transaminase levels; G89.29 Other chronic pain; I10 Essential (primary) hypertension; F17.200 Nicotine dependence, unspecified, uncomplicated; F14.10 Cocaine abuse, uncomplicated; Z90.49 Acquired absence of other specified parts of digestive tract; Z79.4 Long term (current) use of insulin; Z79.899 Other long term (current) drug therapy

== ENCOUNTER 2021-01-07 17:20 | Inpatient (IN) | payer OTHER ==
[~2021-01-07] VITALS: Ht 170.1 cm; Wt 62.8 kg
[~2021-01-07 17:20] MED LIST changes: +PHENERGAN25 M3 PO
[2021-01-07 17:26] VITALS: BP 172/79
[2021-01-07 17:53] LABS: BASO % 0.3 % (0.0-1.0); EOS # 0.1 10*3/uL (0.0-0.4); EOS % 1.6 % (1.0-4.0); HEMATOCRIT 39.7 % (42.0-52.0); LYMPH # 1.5 10*3/uL (1.3-4.4); LYMPH % 19.3 % (27.0-41.0); MEAN CELL VOLUME 91.1 fl (80.0-94.0); MEAN CORPUSCULAR HGB 29.6 pg (27.0-31.0); MEAN CORPUSCULAR HGB CONC 32.5 g/dl (33.0-37.0); MEAN PLATELET VOLUME 10.3 fl (9.6-12.3); MONO # 0.7 10*3/uL (0.1-1.0); MONO % 9.2 % (3.0-9.0); NEUT # 5.4 10*3/uL (2.3-7.9); NEUT % 69.2 % (47.0-73.0); PLATELET COUNT AUTOMATED 268 10*3/uL (130-400); RED BLOOD COUNT 4.36 10*6/uL (4.50-5.90); RED CELL DISTRI WIDTH 12.9 % (0-14.5); WHITE BLOOD COUNT 7.7 10*3/uL (4.8-10.8)
[2021-01-07 18:10] LABS: ALBUMIN 2.9 gm/dl (3.1-4.5); CREATININE 1.72 mg/dL (0.70-1.30); POTASSIUM 4.6 mmol/L (3.5-5.1); TOTAL PROTEIN 6.3 gm/dL (6.4-8.2)
[2021-01-07 20:44] LABS: BUN 42 mg/dl (7-24); CHLORIDE 101 mmol/L (98-107); CREATININE 1.24 mg/dL (0.70-1.30); POTASSIUM 3.7 mmol/L (3.5-5.1); SODIUM 133 mmol/L (136-145)
[2021-01-07 21:00] VITALS: BP 145/85
[2021-01-07 23:53] VITALS: BP 132/64
[2021-01-08 02:21] LABS: BUN 34 mg/dl (7-24); CHLORIDE 105 mmol/L (98-107); CREATININE 1.01 mg/dL (0.70-1.30); POTASSIUM 3.5 mmol/L (3.5-5.1); SODIUM 135 mmol/L (136-145)
[2021-01-08 04:00] VITALS: BP 130/86
[2021-01-08 05:42] LABS: ALBUMIN 2.8 gm/dl (3.1-4.5); BUN 32 mg/dl (7-24); CHLORIDE 108 mmol/L (98-107); CHOLESTEROL 130 mg/dL (<200); CREATININE 0.99 mg/dL (0.70-1.30); FREE T4 0.92 ng/dl (0.76-1.46); LDL CHOLESTEROL 55 mg/dL (9-159); POTASSIUM 3.6 mmol/L (3.5-5.1); SGOT/AST 369 IU/L (3-35); SGPT/ALT 497 U/L (12-78); SODIUM 136 mmol/L (136-145); TOTAL PROTEIN 6.5 gm/dL (6.4-8.2); TRIGLYCERIDES 104 mg/dl (<150)
[2021-01-08 05:48] LABS: ALKALINE PHOSPHATASE 450 U/L (45-117); THYROID STIM HORMONE (HS) 0.944 uIU/ml (0.358-4.75)
[2021-01-08 05:56] LABS: BASO # 0.1 10*3/uL (0.0-0.1); BASO % 0.4 % (0.0-1.0); EOS # 0.2 10*3/uL (0.0-0.4); EOS % 1.7 % (1.0-4.0); HEMATOCRIT 40.5 % (42.0-52.0); LYMPH # 1.9 10*3/uL (1.3-4.4); LYMPH % 16.6 % (27.0-41.0); MEAN CORPUSCULAR HGB 29.2 pg (27.0-31.0); MEAN CORPUSCULAR HGB CONC 32.8 g/dl (33.0-37.0); MEAN PLATELET VOLUME 10.4 fl (9.6-12.3); MONO % 8.9 % (3.0-9.0); NEUT # 8.3 10*3/uL (2.3-7.9); PLATELET COUNT AUTOMATED 291 10*3/uL (130-400); RED BLOOD COUNT 4.55 10*6/uL (4.50-5.90); RED CELL DISTRI WIDTH 12.8 % (0-14.5); WHITE BLOOD COUNT 11.5 10*3/uL (4.8-10.8)
[2021-01-08 08:00] VITALS: BP 135/82
== END 2021-01-08 12:42 | disposition left against medical advice (07) | DRG 637 ==
LOC: ED 17:20 → EDHOLD 19:03 → ICCU 19:03
PROVIDERS: Internal Medicine; ADMIT Student in an Organized Health Care Education/Training Program; ATTEND Student in an Organized Health Care Education/Training Program
DX: E10.69 Type 1 diabetes mellitus with other specified complication (principal); R65.11 Systemic inflammatory response syndrome (SIRS) of non-infectious origin with acute organ dysfunction; E44.0 Moderate protein-calorie malnutrition; E10.65 Type 1 diabetes mellitus with hyperglycemia; N17.9 Acute kidney failure, unspecified; L23.7 Allergic contact dermatitis due to plants, except food; I12.9 Hypertensive chronic kidney disease with stage 1 through stage 4 chronic kidney disease, or unspecified chronic kidney disease; N18.32 Chronic kidney disease, stage 3b; Z53.29 Procedure and treatment not carried out because of patient's decision for other reasons; E10.40 Type 1 diabetes mellitus with diabetic neuropathy, unspecified; E10.22 Type 1 diabetes mellitus with diabetic chronic kidney disease; E87.8 Other disorders of electrolyte and fluid balance, not elsewhere classified; R74.01 Elevation of levels of liver transaminase levels; R74.8 Abnormal levels of other serum enzymes; D64.9 Anemia, unspecified; F32.9 Major depressive disorder, single episode, unspecified; M54.5 Low back pain; G89.29 Other chronic pain; B19.20 Unspecified viral hepatitis C without hepatic coma; K21.9 Gastro-esophageal reflux disease without esophagitis; F12.10 Cannabis abuse, uncomplicated; F17.210 Nicotine dependence, cigarettes, uncomplicated; Z71.6 Tobacco abuse counseling; Z90.49 Acquired absence of other specified parts of digestive tract; Z82.49 Family history of ischemic heart disease and other diseases of the circulatory system; Z83.3 Family history of diabetes mellitus; Z80.8 Family history of malignant neoplasm of other organs or systems; Z79.899 Other long term (current) drug therapy; Z68.21 Body mass index [BMI] 21.0-21.9, adult

== ENCOUNTER 2021-01-11 13:32 | Inpatient (IN) | payer OTHER ==
[~2021-01-11] VITALS: Ht 165.1 cm; Wt 59.4 kg
[2021-01-11 14:02] VITALS: BP 161/99
[2021-01-11 14:27] LABS: BASO # 0.1 10*3/uL (0.0-0.1); BASO % 0.6 % (0.0-1.0); EOS # 0.1 10*3/uL (0.0-0.4); EOS % 1.5 % (1.0-4.0); HEMATOCRIT 47.1 % (42.0-52.0); LYMPH % 24.3 % (27.0-41.0); MEAN CELL VOLUME 89.4 fl (80.0-94.0); MEAN CORPUSCULAR HGB 29.6 pg (27.0-31.0); MEAN CORPUSCULAR HGB CONC 33.1 g/dl (33.0-37.0); MONO # 1.1 10*3/uL (0.1-1.0); MONO % 13.4 % (3.0-9.0); NEUT # 4.8 10*3/uL (2.3-7.9); NEUT % 59.1 % (47.0-73.0); PLATELET COUNT AUTOMATED 300 10*3/uL (130-400); RED BLOOD COUNT 5.27 10*6/uL (4.50-5.90); RED CELL DISTRI WIDTH 13.1 % (0-14.5); WHITE BLOOD COUNT 8.1 10*3/uL (4.8-10.8)
[2021-01-11 14:45] LABS: ALBUMIN 3.5 gm/dl (3.1-4.5); ALKALINE PHOSPHATASE 592 U/L (45-117); BUN 27 mg/dl (7-24); CHLORIDE 99 mmol/L (98-107); CREATININE 1.53 mg/dL (0.70-1.30); POTASSIUM 3.9 mmol/L (3.5-5.1); SGOT/AST 354 IU/L (3-35); SGPT/ALT 535 U/L (12-78); SODIUM 132 mmol/L (136-145); TOTAL PROTEIN 7.9 gm/dL (6.4-8.2)
[2021-01-11 16:00] VITALS: BP 140/80
[2021-01-11 19:55] VITALS: BP 125/75
[2021-01-11 20:10] VITALS: BP 132/80; BP 137/80
[2021-01-12] VITALS: BP 131/83
[2021-01-12 04:00] VITALS: BP 140/80
[2021-01-12 06:10] LABS: BASO % 0.2 % (0.0-1.0); HEMATOCRIT 41.9 % (42.0-52.0); LYMPH # 0.9 10*3/uL (1.3-4.4); LYMPH % 13.8 % (27.0-41.0); MEAN CELL VOLUME 89.9 fl (80.0-94.0); MEAN CORPUSCULAR HGB 29.2 pg (27.0-31.0); MEAN CORPUSCULAR HGB CONC 32.5 g/dl (33.0-37.0); MEAN PLATELET VOLUME 10.5 fl (9.6-12.3); MONO # 0.2 10*3/uL (0.1-1.0); MONO % 2.5 % (3.0-9.0); NEUT # 5.3 10*3/uL (2.3-7.9); NEUT % 82.9 % (47.0-73.0); PLATELET COUNT AUTOMATED 278 10*3/uL (130-400); RED BLOOD COUNT 4.66 10*6/uL (4.50-5.90); RED CELL DISTRI WIDTH 13.2 % (0-14.5); WHITE BLOOD COUNT 6.4 10*3/uL (4.8-10.8)
[2021-01-12 06:22] LABS: ALBUMIN 2.7 gm/dl (3.1-4.5); ALKALINE PHOSPHATASE 461 U/L (45-117); BUN 29 mg/dl (7-24); CHLORIDE 104 mmol/L (98-107); FREE T4 1.04 ng/dl (0.76-1.46); SGOT/AST 268 IU/L (3-35); SGPT/ALT 404 U/L (12-78); TOTAL PROTEIN 6.4 gm/dL (6.4-8.2)
[2021-01-12 06:28] LABS: THYROID STIM HORMONE (HS) 0.349 uIU/ml (0.358-4.75)
[2021-01-12 06:44] LABS: SODIUM 133 mmol/L (136-145)
[2021-01-12 08:00] VITALS: BP 115/75
[2021-01-12 12:00] VITALS: BP 120/68
[2021-01-12 16:00] VITALS: BP 114/59
[2021-01-12 20:00] VITALS: BP 130/88
[2021-01-13] VITALS: BP 146/93
[2021-01-13 00:30] VITALS: BP 150/82
[2021-01-13 06:22] LABS: BASO % 0.2 % (0.0-1.0); EOS # 0.2 10*3/uL (0.0-0.4); EOS % 2.2 % (1.0-4.0); HEMATOCRIT 38.6 % (42.0-52.0); LYMPH # 3.1 10*3/uL (1.3-4.4); LYMPH % 37.1 % (27.0-41.0); MEAN CORPUSCULAR HGB 29.5 pg (27.0-31.0); MEAN CORPUSCULAR HGB CONC 32.4 g/dl (33.0-37.0); MEAN PLATELET VOLUME 10.5 fl (9.6-12.3); MONO # 0.8 10*3/uL (0.1-1.0); MONO % 9.5 % (3.0-9.0); NEUT # 4.2 10*3/uL (2.3-7.9); NEUT % 50.4 % (47.0-73.0); PLATELET COUNT AUTOMATED 237 10*3/uL (130-400); RED BLOOD COUNT 4.24 10*6/uL (4.50-5.90); RED CELL DISTRI WIDTH 13.5 % (0-14.5); WHITE BLOOD COUNT 8.4 10*3/uL (4.8-10.8)
[2021-01-13 06:35] LABS: ALBUMIN 2.4 gm/dl (3.1-4.5); ALKALINE PHOSPHATASE 374 U/L (45-117); BUN 26 mg/dl (7-24); CHLORIDE 105 mmol/L (98-107); CREATININE 1.34 mg/dL (0.70-1.30); SGOT/AST 223 IU/L (3-35); SGPT/ALT 330 U/L (12-78); SODIUM 135 mmol/L (136-145); TOTAL PROTEIN 5.7 gm/dL (6.4-8.2)
[2021-01-13 06:36] LABS: POTASSIUM 3.8 mmol/L (3.5-5.1)
[2021-01-13 08:00] VITALS: BP 160/100
[2021-01-13 12:00] VITALS: BP 145/89
== END 2021-01-13 14:58 | disposition home or self-care (01) | DRG 102 ==
LOC: ED 13:32 → EDHOLD 18:39 → 4E 18:39
PROVIDERS: Internal Medicine; Student in an Organized Health Care Education/Training Program; ADMIT Internal Medicine; ATTEND Internal Medicine
DX: G43.019 Migraine without aura, intractable, without status migrainosus (principal); N17.0 Acute kidney failure with tubular necrosis; E87.1 Hypo-osmolality and hyponatremia; E10.65 Type 1 diabetes mellitus with hyperglycemia; F32.9 Major depressive disorder, single episode, unspecified; E86.0 Dehydration; M54.5 Low back pain; G89.29 Other chronic pain; E10.40 Type 1 diabetes mellitus with diabetic neuropathy, unspecified; K21.9 Gastro-esophageal reflux disease without esophagitis; E83.39 Other disorders of phosphorus metabolism; E83.51 Hypocalcemia; B19.20 Unspecified viral hepatitis C without hepatic coma; R74.01 Elevation of levels of liver transaminase levels; I12.9 Hypertensive chronic kidney disease with stage 1 through stage 4 chronic kidney disease, or unspecified chronic kidney disease; N18.9 Chronic kidney disease, unspecified; E10.22 Type 1 diabetes mellitus with diabetic chronic kidney disease; R74.8 Abnormal levels of other serum enzymes; F17.210 Nicotine dependence, cigarettes, uncomplicated; R00.0 Tachycardia, unspecified; Z71.6 Tobacco abuse counseling; Z90.49 Acquired absence of other specified parts of digestive tract; Z83.3 Family history of diabetes mellitus; Z82.49 Family history of ischemic heart disease and other diseases of the circulatory system; Z80.8 Family history of malignant neoplasm of other organs or systems; Z79.899 Other long term (current) drug therapy

== ENCOUNTER 2021-04-02 18:22 | Emergency (ER) | payer OTHER ==
[~2021-04-02] VITALS: Ht 165.1 cm; Wt 61.2 kg
[2021-04-02 18:31] VITALS: BP 176/100
[2021-04-02] MEDS ORDERED: NAPROSYN500 MG PO (19:53)
== END 2021-04-02 19:57 | disposition home or self-care (01) ==
LOC: ED 18:22
DX: S20.212A Contusion of left front wall of thorax, initial encounter (principal); Z79.899 Other long term (current) drug therapy; Z87.891 Personal history of nicotine dependence; W22.8XXA Striking against or struck by other objects, initial encounter; Y93.89 Activity, other specified; Y92.89 Other specified places as the place of occurrence of the external cause; Y99.8 Other external cause status

== ENCOUNTER 2021-04-16 13:09 | Inpatient (IN) | payer OTHER ==
[~2021-04-16] VITALS: Ht 165.1 cm; Wt 57.7 kg
[2021-04-16] VITALS (7 sets, daily range): BP systolic 124–184; BP diastolic 70–102
[~2021-04-16 13:09] MED LIST changes: +NAPROSYN500 MG PO
[2021-04-16 14:03] LABS: BASO % 0.1 % (0.0-1.0); HEMATOCRIT 46.5 % (42.0-52.0); LYMPH # 1.2 10*3/uL (1.3-4.4); LYMPH % 6.3 % (27.0-41.0); MEAN CELL VOLUME 91.7 fl (80.0-94.0); MEAN CORPUSCULAR HGB 29.8 pg (27.0-31.0); MEAN CORPUSCULAR HGB CONC 32.5 g/dl (33.0-37.0); MEAN PLATELET VOLUME 10.5 fl (9.6-12.3); MONO # 1.2 10*3/uL (0.1-1.0); MONO % 6.5 % (3.0-9.0); NEUT # 15.9 10*3/uL (2.3-7.9); NEUT % 86.1 % (47.0-73.0); PLATELET COUNT AUTOMATED 358 10*3/uL (130-400); RED BLOOD COUNT 5.07 10*6/uL (4.50-5.90); RED CELL DISTRI WIDTH 12.3 % (0-14.5); WHITE BLOOD COUNT 18.5 10*3/uL (4.8-10.8)
[2021-04-16 14:18] LABS: CREATININE 4.31 mg/dL (0.70-1.30); TOTAL PROTEIN 6.9 gm/dL (6.4-8.2)
[2021-04-16 17:02] LABS: CREATININE 4.24 mg/dL (0.70-1.30); POTASSIUM 3.7 mmol/L (3.5-5.1)
[2021-04-16 17:12] LABS: BILIRUBIN Negative (Negative); BLOOD 1+ (Negative); CLARITY Clear (Clear); COLOR Yellow (Yellow); GLUCOSE 3+ (Negative); KETONE Trace (Negative); LEUKO ESTERASE Negative (Negative); NITRITE Negative (Negative); SPECIFIC GRAVITY 1.025 (1.001-1.030); UROBILINOGEN 0.2 E.U./dl (0.0-1.0)
[2021-04-16 17:40] LABS: BACTERIA 1+; EPITHELIAL CELLS 0-2; YEAST 4+
[2021-04-16 22:12] LABS: CREATININE 3.84 mg/dL (0.70-1.30); POTASSIUM 3.4 mmol/L (3.5-5.1)
[2021-04-17] VITALS: BP 127/76
[2021-04-17 02:10] LABS: CREATININE 3.32 mg/dL (0.70-1.30); POTASSIUM 3.7 mmol/L (3.5-5.1)
[2021-04-17 04:00] VITALS: BP 113/77
[2021-04-17 06:21] LABS: ALBUMIN 2.7 gm/dl (3.1-4.5); CREATININE 3.03 mg/dL (0.70-1.30); POTASSIUM 3.8 mmol/L (3.5-5.1); TOTAL PROTEIN 6.6 gm/dL (6.4-8.2)
[2021-04-17 06:26] LABS: THYROID STIM HORMONE (HS) 0.574 uIU/ml (0.358-4.75)
[2021-04-17 06:32] LABS: ACT PARTIAL THROMBO TIME 25.7 SECONDS (20.0-32.1)
[2021-04-17 07:04] LABS: BASO % 0.2 % (0.0-1.0); EOS # 0.1 10*3/uL (0.0-0.4); EOS % 0.4 % (1.0-4.0); HEMATOCRIT 41.5 % (42.0-52.0); LYMPH # 1.7 10*3/uL (1.3-4.4); LYMPH % 9.2 % (27.0-41.0); MEAN CORPUSCULAR HGB 29.5 pg (27.0-31.0); MEAN CORPUSCULAR HGB CONC 35.2 g/dl (33.0-37.0); MEAN PLATELET VOLUME 10.3 fl (9.6-12.3); MONO # 1.3 10*3/uL (0.1-1.0); MONO % 7.3 % (3.0-9.0); NEUT % 82.6 % (47.0-73.0); PLATELET COUNT AUTOMATED 394 10*3/uL (130-400); RED BLOOD COUNT 4.95 10*6/uL (4.50-5.90); RED CELL DISTRI WIDTH 12.1 % (0-14.5); WHITE BLOOD COUNT 18.1 10*3/uL (4.8-10.8)
[2021-04-17 07:18] LABS: MEAN CELL VOLUME 83.8 fl (80.0-94.0)
[2021-04-17 08:00] VITALS: BP 111/84
[2021-04-17 08:31] LABS: VITAMIN D, 25-HYDROXY 26.9 ng/mL (30-100)
[2021-04-17 12:00] VITALS: BP 124/79
[2021-04-17 16:00] VITALS: BP 111/87
[2021-04-17 20:00] VITALS: BP 123/68
[2021-04-18] VITALS: BP 115/78
[2021-04-18 04:00] VITALS: BP 127/88
[2021-04-18 06:03] LABS: CREATININE 2.04 mg/dL (0.70-1.30); POTASSIUM 4.2 mmol/L (3.5-5.1)
[2021-04-18 08:00] VITALS: BP 128/72
[2021-04-18 12:00] VITALS: BP 156/93
[2021-04-18 12:41] LABS: CREATININE 1.82 mg/dL (0.70-1.30); POTASSIUM 3.3 mmol/L (3.5-5.1)
[2021-04-18 16:00] VITALS: BP 131/86
[2021-04-18 20:00] VITALS: BP 135/88
[2021-04-19 02:21] LABS: BUN 25 mg/dl (7-24); CHLORIDE 119 mmol/L (98-107); CREATININE 1.56 mg/dL (0.70-1.30); POTASSIUM 4.2 mmol/L (3.5-5.1); SODIUM 147 mmol/L (136-145)
[2021-04-19 08:00] VITALS: BP 136/94
[2021-04-19 10:29] LABS: BUN 23 mg/dl (7-24); CHLORIDE 114 mmol/L (98-107); CREATININE 1.53 mg/dL (0.70-1.30); POTASSIUM 3.7 mmol/L (3.5-5.1); SODIUM 142 mmol/L (136-145)
[2021-04-19 12:00] VITALS: BP 136/94
[2021-04-19 16:00] VITALS: BP 138/90
[2021-04-20] VITALS: BP 144/80
[2021-04-20 04:00] VITALS: BP 132/78
[2021-04-20 08:00] VITALS: BP 139/79
[2021-04-20 12:00] VITALS: BP 112/71
[2021-04-20 14:16] LABS: HEMATOCRIT 44.2 % (42.0-52.0); MEAN CELL VOLUME 90.4 fl (80.0-94.0); MEAN CORPUSCULAR HGB 29.7 pg (27.0-31.0); MEAN CORPUSCULAR HGB CONC 32.8 g/dl (33.0-37.0); PLATELET COUNT AUTOMATED 285 10*3/uL (130-400); RED BLOOD COUNT 4.89 10*6/uL (4.50-5.90); RED CELL DISTRI WIDTH 12.7 % (0-14.5); WHITE BLOOD COUNT 12.8 10*3/uL (4.8-10.8)
[2021-04-20 14:30] LABS: ALBUMIN 1.9 gm/dl (3.1-4.5); ALKALINE PHOSPHATASE 275 U/L (45-117); BUN 22 mg/dl (7-24); CHLORIDE 111 mmol/L (98-107); CREATININE 1.44 mg/dL (0.70-1.30); POTASSIUM 3.2 mmol/L (3.5-5.1); SGOT/AST 44 IU/L (3-35); SGPT/ALT 74 U/L (12-78); SODIUM 141 mmol/L (136-145); TOTAL PROTEIN 6.3 gm/dL (6.4-8.2)
[2021-04-20 14:42] LABS: ATYPICAL LYMPHS 1 % (0-0); TOTAL CELLS COUNTED 100 #CELLS
[2021-04-20 14:43] LABS: BURR CELLS FEW; PLATELET SUFFICIENCY NORMAL (NORMAL)
[2021-04-20 16:00] VITALS: BP 134/77
== END 2021-04-20 19:00 | disposition left against medical advice (07) | DRG 177 ==
LOC: ED 13:09 → EDHOLD 14:43 → ICCU 14:43 → EDHOLD 16:09 → ICCU 19:48 → 5E 04-20 17:25
PROVIDERS: Internal Medicine; Nurse Practitioner Family; Student in an Organized Health Care Education/Training Program; ADMIT Internal Medicine; ATTEND Internal Medicine
DX: J15.6 Pneumonia due to other Gram-negative bacteria (principal); E10.10 Type 1 diabetes mellitus with ketoacidosis without coma; N17.0 Acute kidney failure with tubular necrosis; E87.1 Hypo-osmolality and hyponatremia; R65.10 Systemic inflammatory response syndrome (SIRS) of non-infectious origin without acute organ dysfunction; E87.8 Other disorders of electrolyte and fluid balance, not elsewhere classified; K21.9 Gastro-esophageal reflux disease without esophagitis; E83.51 Hypocalcemia; Z20.822 Contact with and (suspected) exposure to COVID-19; R31.9 Hematuria, unspecified; I10 Essential (primary) hypertension; Z83.3 Family history of diabetes mellitus; Z79.4 Long term (current) use of insulin; Z79.899 Other long term (current) drug therapy; Z82.49 Family history of ischemic heart disease and other diseases of the circulatory system

== ENCOUNTER 2021-04-27 03:56 | Inpatient (IN) | payer OTHER ==
[~2021-04-27] VITALS: Ht 167.6 cm; Wt 53.5 kg
[2021-04-27] VITALS (8 sets, daily range): BP systolic 90–128; BP diastolic 48–72
[2021-04-27 05:45] LABS: ALBUMIN 2.1 gm/dl (3.1-4.5); CREATININE 3.02 mg/dL (0.70-1.30); TOTAL PROTEIN 6.1 gm/dL (6.4-8.2)
[2021-04-27 05:48] LABS: POTASSIUM 6.2 mmol/L (3.5-5.1)
[2021-04-27 05:52] LABS: HEMATOCRIT 45.1 % (42.0-52.0); MEAN CELL VOLUME 107.1 fl (80.0-94.0); MEAN CORPUSCULAR HGB 30.6 pg (27.0-31.0); MEAN CORPUSCULAR HGB CONC 28.6 g/dl (33.0-37.0); MEAN PLATELET VOLUME 11.2 fl (9.6-12.3); PLATELET COUNT AUTOMATED 619 10*3/uL (130-400); RED BLOOD COUNT 4.21 10*6/uL (4.50-5.90); RED CELL DISTRI WIDTH 12.7 % (0-14.5)
[2021-04-27 06:00] LABS: WHITE BLOOD COUNT 56.3 10*3/uL (4.8-10.8)
[2021-04-27 06:06] LABS: ABG BASE EXCESS -25.4 mmol/L (-2.0-2.0)
[2021-04-27 06:09] LABS: ARTERIAL BLOOD GAS PH 7.017 (7.35-7.45)
[2021-04-27 06:39] LABS: POLYCHROMASIA SLIGHT; TOTAL CELLS COUNTED 100 #CELLS
[2021-04-27 06:40] LABS: PLATELET SUFFICIENCY HIGH (NORMAL)
[2021-04-27 10:27] LABS: CREATININE 2.53 mg/dL (0.70-1.30)
[2021-04-27 10:30] LABS: POTASSIUM 4.3 mmol/L (3.5-5.1)
[2021-04-27 10:58] LABS: BILIRUBIN Negative (Negative); BLOOD Trace-Lysed (Negative); CLARITY Clear (Clear); COLOR Yellow (Yellow); GLUCOSE 3+ (Negative); KETONE 3+ (Negative); LEUKO ESTERASE Negative (Negative); NITRITE Negative (Negative); UROBILINOGEN 0.2 E.U./dl (0.0-1.0)
[2021-04-27 11:07] LABS: URINE AMPHETAMINES > 1000 (1000ng/ml); URINE BARBITURATES < 200 (200ng/ml); URINE BENZODIAZEPINES < 200 (200ng/ml); URINE CANNABINOIDS (THC) < 50 (50ng/ml); URINE COCAINE < 300 (300ng/ml); URINE METHADONE < 300 (300ng/ml); URINE OPIATES < 300 (300ng/ml); URINE PHENCYCLIDINE < 25 (25ng/ml)
[2021-04-27 11:18] LABS: BACTERIA 1+; YEAST 1+
[2021-04-27 14:22] LABS: HEMATOCRIT 38.4 % (42.0-52.0); MEAN CORPUSCULAR HGB 29.9 pg (27.0-31.0); MEAN CORPUSCULAR HGB CONC 33.6 g/dl (33.0-37.0); MEAN PLATELET VOLUME 10.2 fl (9.6-12.3); PLATELET COUNT AUTOMATED 471 10*3/uL (130-400); RED BLOOD COUNT 4.31 10*6/uL (4.50-5.90); RED CELL DISTRI WIDTH 12.3 % (0-14.5)
[2021-04-27 14:33] LABS: CREATININE 2.28 mg/dL (0.70-1.30); POTASSIUM 4.1 mmol/L (3.5-5.1)
[2021-04-27 14:36] LABS: MEAN CELL VOLUME 89.1 fl (80.0-94.0); WHITE BLOOD COUNT 46.9 10*3/uL (4.8-10.8)
[2021-04-27 14:42] LABS: BURR CELLS MODERATE; MICROCYTOSIS SLIGHT; PLATELET SUFFICIENCY HIGH (NORMAL); TOTAL CELLS COUNTED 100 #CELLS
[2021-04-27 18:30] LABS: CREATININE 2.09 mg/dL (0.70-1.30); POTASSIUM 3.9 mmol/L (3.5-5.1)
[2021-04-27 21:48] LABS: CREATININE 1.87 mg/dL (0.70-1.30); POTASSIUM 3.9 mmol/L (3.5-5.1)
[2021-04-28] VITALS: BP 108/59
[2021-04-28 02:05] LABS: CREATININE 1.66 mg/dL (0.70-1.30); POTASSIUM 4.3 mmol/L (3.5-5.1)
[2021-04-28 04:00] VITALS: BP 125/80
[2021-04-28 06:16] LABS: CREATININE 1.57 mg/dL (0.70-1.30); POTASSIUM 4.6 mmol/L (3.5-5.1)
[2021-04-28 06:24] LABS: HEMATOCRIT 36.5 % (42.0-52.0); MEAN CELL VOLUME 89.9 fl (80.0-94.0); MEAN CORPUSCULAR HGB 29.8 pg (27.0-31.0); MEAN CORPUSCULAR HGB CONC 33.2 g/dl (33.0-37.0); MEAN PLATELET VOLUME 10.5 fl (9.6-12.3); PLATELET COUNT AUTOMATED 389 10*3/uL (130-400); RED BLOOD COUNT 4.06 10*6/uL (4.50-5.90); RED CELL DISTRI WIDTH 12.3 % (0-14.5); WHITE BLOOD COUNT 28.7 10*3/uL (4.8-10.8)
[2021-04-28 07:26] LABS: POLYCHROMASIA SLIGHT; TOTAL CELLS COUNTED 100 #CELLS
[2021-04-28 07:27] LABS: BURR CELLS FEW; PLATELET SUFFICIENCY NORMAL (NORMAL)
[2021-04-28 08:00] VITALS: BP 116/75
[2021-04-28 10:26] LABS: CREATININE 1.7 mg/dL (0.70-1.30); POTASSIUM 4.5 mmol/L (3.5-5.1)
[2021-04-28 12:15] VITALS: BP 93/58
[2021-04-28] MEDS ORDERED: MUCUS RELIEF600 MG PO (13:46)
[2021-04-28] MEDS ORDERED: LANTUS SOL100 UNIT/1 SQ (13:46)
[2021-04-28] MEDS ORDERED: HUMALOG100 UNIT/2 SC (13:46)
[2021-04-28] MEDS ORDERED: LEVOFLOXACIN750 M2 PO (13:46)
== END 2021-04-28 15:21 | disposition home or self-care (01) | DRG 637 ==
LOC: ED 03:56 → EDHOLD 06:40 → ICCU 06:40 → EDHOLD 07:03 → ICCU 07:04
PROVIDERS: Internal Medicine; ADMIT Internal Medicine; ATTEND Internal Medicine
DX: E10.10 Type 1 diabetes mellitus with ketoacidosis without coma (principal); N17.0 Acute kidney failure with tubular necrosis; R65.10 Systemic inflammatory response syndrome (SIRS) of non-infectious origin without acute organ dysfunction; E44.0 Moderate protein-calorie malnutrition; Z68.1 Body mass index [BMI] 19.9 or less, adult; D53.9 Nutritional anemia, unspecified; D75.839 Thrombocytosis, unspecified; E87.8 Other disorders of electrolyte and fluid balance, not elsewhere classified; F32.A Depression, unspecified; F17.210 Nicotine dependence, cigarettes, uncomplicated; R74.01 Elevation of levels of liver transaminase levels; F15.10 Other stimulant abuse, uncomplicated; Z71.6 Tobacco abuse counseling; Z79.4 Long term (current) use of insulin; Z90.49 Acquired absence of other specified parts of digestive tract; Z82.49 Family history of ischemic heart disease and other diseases of the circulatory system; Z83.3 Family history of diabetes mellitus

== ENCOUNTER 2021-05-02 12:33 | Emergency (ER) | payer OTHER ==
[~2021-05-02] VITALS: Ht 165.1 cm; Wt 54.4 kg
[~2021-05-02 12:33] MED LIST changes: +MUCUS RELIEF600 MG PO
[2021-05-02 15:21] LABS: BASO % 0.2 % (0.0-1.0); EOS % 0.2 % (1.0-4.0); HEMATOCRIT 42.7 % (42.0-52.0); LYMPH # 1.7 10*3/uL (1.3-4.4); LYMPH % 11.9 % (27.0-41.0); MEAN CELL VOLUME 90.1 fl (80.0-94.0); MEAN CORPUSCULAR HGB 30.2 pg (27.0-31.0); MEAN CORPUSCULAR HGB CONC 33.5 g/dl (33.0-37.0); MEAN PLATELET VOLUME 10.3 fl (9.6-12.3); MONO # 0.7 10*3/uL (0.1-1.0); NEUT # 11.5 10*3/uL (2.3-7.9); NEUT % 82.1 % (47.0-73.0); PLATELET COUNT AUTOMATED 381 10*3/uL (130-400); RED BLOOD COUNT 4.74 10*6/uL (4.50-5.90); RED CELL DISTRI WIDTH 12.5 % (0-14.5); WHITE BLOOD COUNT 14.1 10*3/uL (4.8-10.8)
[2021-05-02 15:32] LABS: ACT PARTIAL THROMBO TIME 25.4 SECONDS (20.0-32.1); INTERNATIONAL NORM RATIO 0.9 (2.0-3.5)
[2021-05-02 15:38] LABS: ALBUMIN 2.4 gm/dl (3.1-4.5); ALKALINE PHOSPHATASE 522 U/L (45-117); BUN 33 mg/dl (7-24); CHLORIDE 95 mmol/L (98-107); CPK 21 U/L (39-308); CREATININE 1.44 mg/dL (0.70-1.30); POTASSIUM 5.3 mmol/L (3.5-5.1); SGOT/AST 152 IU/L (3-35); SGPT/ALT 164 U/L (12-78); SODIUM 131 mmol/L (136-145); TOTAL PROTEIN 6.6 gm/dL (6.4-8.2)
[2021-05-02 16:18] LABS: ABG BASE EXCESS -1.6 mmol/L (-2.0-2.0); ARTERIAL BLOOD GAS PH 7.416 (7.35-7.45); ARTERIAL BLOOD GAS PO2 84.9 (80-90)
[2021-05-02 18:29] LABS: BILIRUBIN Negative (Negative); BLOOD Negative (Negative); CLARITY Clear (Clear); COLOR Yellow (Yellow); GLUCOSE 3+ (Negative); KETONE 1+ (Negative); LEUKO ESTERASE Negative (Negative); NITRITE Negative (Negative); SPECIFIC GRAVITY >= 1.030 (1.001-1.030); UROBILINOGEN 0.2 E.U./dl (0.0-1.0)
[2021-05-02 18:37] LABS: RBC 0-2 rbc/hpf (0-2); WBC 0-2 wbc/hpf (0-5)
[2021-05-02 18:41] LABS: BACTERIA TRACE; YEAST TRACE
[2021-05-02 18:52] LABS: BUN 31 mg/dl (7-24); CHLORIDE 104 mmol/L (98-107); CREATININE 1.22 mg/dL (0.70-1.30); SODIUM 135 mmol/L (136-145)
[2021-05-02 21:57] LABS: BUN 25 mg/dl (7-24); CHLORIDE 104 mmol/L (98-107); CREATININE 1.11 mg/dL (0.70-1.30); POTASSIUM 4.6 mmol/L (3.5-5.1); SODIUM 136 mmol/L (136-145)
[2021-05-03 06:34] VITALS: BP 126/61
[2021-05-03] MEDS ORDERED: DOXYCYCLINE HY100 M3 PO (07:27)
== END 2021-05-03 07:50 | disposition home or self-care (01) ==
LOC: ED 12:33
PROVIDERS: Emergency Medicine
DX: J40 Bronchitis, not specified as acute or chronic (principal); E10.65 Type 1 diabetes mellitus with hyperglycemia

== ENCOUNTER 2021-06-01 12:47 | Inpatient (IN) | payer OTHER ==
[~2021-06-01] VITALS: Ht 165.1 cm; Wt 54.4 kg
[~2021-06-01 12:47] MED LIST changes: +DOXYCYCLINE HY100 M3 PO; +KEPPRA500 MG PO; +LANTUS SOL100 UNIT/1 SC
[2021-06-01 12:54] VITALS: BP 183/77
[2021-06-01 13:20] LABS: BASO % 0.1 % (0.0-1.0); EOS % 0.1 % (1.0-4.0); HEMATOCRIT 36.2 % (42.0-52.0); LYMPH # 0.6 10*3/uL (1.3-4.4); LYMPH % 8.1 % (27.0-41.0); MEAN CELL VOLUME 99.7 fl (80.0-94.0); MEAN CORPUSCULAR HGB CONC 30.1 g/dl (33.0-37.0); MEAN PLATELET VOLUME 9.9 fl (9.6-12.3); MONO # 0.5 10*3/uL (0.1-1.0); MONO % 6.8 % (3.0-9.0); NEUT # 6.3 10*3/uL (2.3-7.9); PLATELET COUNT AUTOMATED 439 10*3/uL (130-400); RED BLOOD COUNT 3.63 10*6/uL (4.50-5.90); RED CELL DISTRI WIDTH 14.1 % (0-14.5); WHITE BLOOD COUNT 7.5 10*3/uL (4.8-10.8)
[2021-06-01 13:29] LABS: INTERNATIONAL NORM RATIO 0.9 (2.0-3.5)
[2021-06-01 13:37] LABS: ALBUMIN 2.3 gm/dl (3.1-4.5); ALKALINE PHOSPHATASE 839 U/L (45-117); BUN 47 mg/dl (7-24); CHLORIDE 86 mmol/L (98-107); CREATININE 1.99 mg/dL (0.70-1.30); POTASSIUM 5.6 mmol/L (3.5-5.1); SGOT/AST 59 IU/L (3-35); SGPT/ALT 129 U/L (12-78); SODIUM 120 mmol/L (136-145); TOTAL PROTEIN 6.8 gm/dL (6.4-8.2)
[2021-06-01 13:43] LABS: ETHYL ALCOHOL < 3.0 mg/dl (<3)
[2021-06-01 15:48] VITALS: BP 139/85
[2021-06-01 16:23] LABS: CREATININE 2.25 mg/dL (0.70-1.30)
[2021-06-01 16:31] LABS: POTASSIUM 4.4 mmol/L (3.5-5.1)
[2021-06-01 17:31] LABS: CREATININE 2.11 mg/dL (0.70-1.30); POTASSIUM 4.2 mmol/L (3.5-5.1)
[2021-06-01 18:20] VITALS: BP 157/74
[2021-06-01 19:30] VITALS: BP 132/71
[2021-06-01 21:02] LABS: CREATININE 1.57 mg/dL (0.70-1.30); POTASSIUM 3.7 mmol/L (3.5-5.1)
[2021-06-01 21:03] VITALS: BP 130/61
[2021-06-01 22:38] VITALS: BP 115/59
[2021-06-02 01:04] VITALS: BP 118/73
[2021-06-02 01:15] LABS: BUN 33 mg/dl (7-24); CHLORIDE 113 mmol/L (98-107); CREATININE 1.23 mg/dL (0.70-1.30); POTASSIUM 3.4 mmol/L (3.5-5.1); SODIUM 141 mmol/L (136-145)
[2021-06-02 03:57] VITALS: BP 123/59
[2021-06-02 04:34] LABS: BILIRUBIN Negative (Negative); BLOOD Trace-Lysed (Negative); CLARITY Clear (Clear); COLOR Yellow (Yellow); GLUCOSE 3+ (Negative); KETONE Negative (Negative); LEUKO ESTERASE Negative (Negative); NITRITE Negative (Negative); SPECIFIC GRAVITY 1.015 (1.001-1.030); UROBILINOGEN 0.2 E.U./dl (0.0-1.0)
[2021-06-02 04:43] LABS: URINE AMPHETAMINES > 1000 (1000ng/ml); URINE BARBITURATES < 200 (200ng/ml); URINE BENZODIAZEPINES < 200 (200ng/ml); URINE CANNABINOIDS (THC) < 50 (50ng/ml); URINE COCAINE > 300 (300ng/ml); URINE METHADONE < 300 (300ng/ml); URINE OPIATES < 300 (300ng/ml)
[2021-06-02 04:45] LABS: URINE PHENCYCLIDINE < 25 (25ng/ml)
[2021-06-02 06:19] LABS: ALBUMIN 1.7 gm/dl (3.1-4.5); BUN 29 mg/dl (7-24); CHLORIDE 109 mmol/L (98-107); CREATININE 1.16 mg/dL (0.70-1.30); POTASSIUM 3.4 mmol/L (3.5-5.1); SGOT/AST 51 IU/L (3-35); SGPT/ALT 96 U/L (12-78); SODIUM 139 mmol/L (136-145)
[2021-06-02 06:22] LABS: ALKALINE PHOSPHATASE 573 U/L (45-117); TOTAL PROTEIN 5.3 gm/dL (6.4-8.2)
[2021-06-02 06:58] VITALS: BP 130/60
[2021-06-02 07:05] LABS: BASO % 0.3 % (0.0-1.0); EOS # 0.2 10*3/uL (0.0-0.4); EOS % 1.5 % (1.0-4.0); LYMPH % 25.7 % (27.0-41.0); MEAN CORPUSCULAR HGB 30.6 pg (27.0-31.0); MEAN CORPUSCULAR HGB CONC 32.7 g/dl (33.0-37.0); MEAN PLATELET VOLUME 9.7 fl (9.6-12.3); MONO # 1.1 10*3/uL (0.1-1.0); NEUT # 7.4 10*3/uL (2.3-7.9); NEUT % 62.9 % (47.0-73.0); PLATELET COUNT AUTOMATED 446 10*3/uL (130-400); RED BLOOD COUNT 2.78 10*6/uL (4.50-5.90); RED CELL DISTRI WIDTH 14.6 % (0-14.5); WHITE BLOOD COUNT 11.7 10*3/uL (4.8-10.8)
[2021-06-02 07:12] LABS: MEAN CELL VOLUME 93.5 fl (80.0-94.0)
[2021-06-02 07:37] VITALS: BP 130/64
[2021-06-02] MEDS ORDERED: KEPPRA500 MG PO (09:20)
[2021-06-02 11:52] VITALS: BP 132/58
[2021-06-02 16:00] VITALS: BP 137/62
== END 2021-06-02 17:15 | disposition home or self-care (01) | DRG 637 ==
LOC: ED 12:47 → EDBD 12:47 → ED 12:54 → EDHOLD 13:51 → ICCU 13:51
PROVIDERS: Hospitalist; Internal Medicine; Physician Assistant; ADMIT Internal Medicine; ATTEND Internal Medicine
DX: E10.10 Type 1 diabetes mellitus with ketoacidosis without coma (principal); G93.41 Metabolic encephalopathy; E43 Unspecified severe protein-calorie malnutrition; N17.0 Acute kidney failure with tubular necrosis; R65.10 Systemic inflammatory response syndrome (SIRS) of non-infectious origin without acute organ dysfunction; Z68.1 Body mass index [BMI] 19.9 or less, adult; E10.42 Type 1 diabetes mellitus with diabetic polyneuropathy; D53.9 Nutritional anemia, unspecified; K21.9 Gastro-esophageal reflux disease without esophagitis; Z82.49 Family history of ischemic heart disease and other diseases of the circulatory system; Z83.3 Family history of diabetes mellitus

== ENCOUNTER 2021-06-30 07:03 | Inpatient (IN) | payer OTHER ==
[~2021-06-30] VITALS: Ht 165.1 cm; Wt 49.0 kg
[2021-06-30] VITALS (8 sets, daily range): BP systolic 76–123; BP diastolic 44–60
[2021-06-30 07:30] LABS: HEMATOCRIT 43.2 % (42.0-52.0); MEAN CELL VOLUME 115.5 fl (80.0-94.0); MEAN CORPUSCULAR HGB 30.7 pg (27.0-31.0); MEAN CORPUSCULAR HGB CONC 26.6 g/dl (33.0-37.0); MEAN PLATELET VOLUME 10.7 fl (9.6-12.3); PLATELET COUNT AUTOMATED 641 10*3/uL (130-400); RED BLOOD COUNT 3.74 10*6/uL (4.50-5.90); RED CELL DISTRI WIDTH 14.2 % (0-14.5); WHITE BLOOD COUNT 26.7 10*3/uL (4.8-10.8)
[2021-06-30 07:42] LABS: ACT PARTIAL THROMBO TIME 29.3 SECONDS (20.0-32.1)
[2021-06-30 07:46] LABS: ALBUMIN 2.2 gm/dl (3.1-4.5); CREATININE 3.33 mg/dL (0.70-1.30)
[2021-06-30 07:53] LABS: BURR CELLS MODERATE; PLATELET SUFFICIENCY HIGH (NORMAL); TOTAL CELLS COUNTED 100 #CELLS
[2021-06-30 07:57] LABS: POTASSIUM 6.2 mmol/L (3.5-5.1)
[2021-06-30 09:16] LABS: VENOUS PH 6.886 (7.37-7.45)
[2021-06-30 12:18] LABS: CREATININE 3.27 mg/dL (0.70-1.30)
[2021-06-30 12:21] LABS: POTASSIUM 3.8 mmol/L (3.5-5.1)
[2021-06-30 15:20] LABS: CREATININE 3.06 mg/dL (0.70-1.30); POTASSIUM 3.5 mmol/L (3.5-5.1)
[2021-06-30 19:46] LABS: CREATININE 2.8 mg/dL (0.70-1.30); POTASSIUM 3.6 mmol/L (3.5-5.1)
[2021-06-30 23:21] LABS: CREATININE 2.41 mg/dL (0.70-1.30); POTASSIUM 3.3 mmol/L (3.5-5.1)
[2021-07-01] VITALS: BP 159/69
[2021-07-01 03:11] LABS: HEMATOCRIT 34.4 % (42.0-52.0); MEAN CORPUSCULAR HGB 30.3 pg (27.0-31.0); MEAN CORPUSCULAR HGB CONC 33.1 g/dl (33.0-37.0); MEAN PLATELET VOLUME 9.4 fl (9.6-12.3); RED BLOOD COUNT 3.76 10*6/uL (4.50-5.90); RED CELL DISTRI WIDTH 13.7 % (0-14.5); WHITE BLOOD COUNT 20.1 10*3/uL (4.8-10.8)
[2021-07-01 03:23] LABS: MEAN CELL VOLUME 91.5 fl (80.0-94.0); PLATELET COUNT AUTOMATED 422 10*3/uL (130-400)
[2021-07-01 03:24] LABS: CREATININE 2.28 mg/dL (0.70-1.30); POTASSIUM 3.5 mmol/L (3.5-5.1)
[2021-07-01 03:29] LABS: PLATELET SUFFICIENCY HIGH (NORMAL); TOTAL CELLS COUNTED 100 #CELLS
[2021-07-01 07:55] LABS: CREATININE 2.17 mg/dL (0.70-1.30)
[2021-07-01 08:10] VITALS: BP 161/66
[2021-07-01 12:00] VITALS: BP 149/81
[2021-07-01 12:35] LABS: CREATININE 1.89 mg/dL (0.70-1.30); POTASSIUM 3.5 mmol/L (3.5-5.1)
[2021-07-01] MEDS ORDERED: LIPITOR80 MG PO (15:44)
[2021-07-01] MEDS ORDERED: LEXAPRO10 MG PO (15:45)
[2021-07-01 16:00] VITALS: BP 112/61
[2021-07-01 17:17] LABS: CREATININE 1.7 mg/dL (0.70-1.30); POTASSIUM 3.6 mmol/L (3.5-5.1)
[2021-07-01 20:00] VITALS: BP 154/81
[2021-07-01 20:31] LABS: CREATININE 1.63 mg/dL (0.70-1.30); POTASSIUM 3.7 mmol/L (3.5-5.1)
[2021-07-02 03:38] LABS: BILIRUBIN Negative (Negative); BLOOD 2+ (Negative); CLARITY Turbid (Clear); COLOR Yellow (Yellow); GLUCOSE Negative (Negative); KETONE Negative (Negative); LEUKO ESTERASE 3+ (Negative); NITRITE Negative (Negative); PH 5.5 (4.5-8.0); SPECIFIC GRAVITY 1.015 (1.001-1.030); UROBILINOGEN 0.2 E.U./dl (0.0-1.0)
[2021-07-02 03:46] LABS: URINE AMPHETAMINES < 1000 (1000ng/ml); URINE BARBITURATES < 200 (200ng/ml); URINE BENZODIAZEPINES < 200 (200ng/ml); URINE CANNABINOIDS (THC) < 50 (50ng/ml); URINE COCAINE < 300 (300ng/ml); URINE METHADONE < 300 (300ng/ml); URINE OPIATES < 300 (300ng/ml)
[2021-07-02 03:47] LABS: URINE PHENCYCLIDINE < 25 (25ng/ml)
[2021-07-02 03:49] LABS: WBC TNTC wbc/hpf (0-5); YEAST 4+
[2021-07-02 08:57] LABS: BASO % 0.2 % (0.0-1.0); EOS # 0.1 10*3/uL (0.0-0.4); EOS % 1.7 % (1.0-4.0); HEMATOCRIT 36.6 % (42.0-52.0); LYMPH # 2.6 10*3/uL (1.3-4.4); LYMPH % 31.6 % (27.0-41.0); MEAN CELL VOLUME 93.6 fl (80.0-94.0); MEAN CORPUSCULAR HGB 30.2 pg (27.0-31.0); MEAN CORPUSCULAR HGB CONC 32.2 g/dl (33.0-37.0); MEAN PLATELET VOLUME 9.4 fl (9.6-12.3); MONO # 0.5 10*3/uL (0.1-1.0); MONO % 6.6 % (3.0-9.0); NEUT # 4.8 10*3/uL (2.3-7.9); NEUT % 59.4 % (47.0-73.0); PLATELET COUNT AUTOMATED 351 10*3/uL (130-400); RED BLOOD COUNT 3.91 10*6/uL (4.50-5.90); RED CELL DISTRI WIDTH 14.7 % (0-14.5); WHITE BLOOD COUNT 8.1 10*3/uL (4.8-10.8)
[2021-07-02 09:16] LABS: ALBUMIN 2.1 gm/dl (3.1-4.5); ALKALINE PHOSPHATASE 438 U/L (45-117); BUN 20 mg/dl (7-24); CHLORIDE 123 mmol/L (98-107); CREATININE 1.34 mg/dL (0.70-1.30); POTASSIUM 2.9 mmol/L (3.5-5.1); SGOT/AST 150 IU/L (3-35); SGPT/ALT 99 U/L (12-78); SODIUM 153 mmol/L (136-145); TOTAL PROTEIN 5.7 gm/dL (6.4-8.2)
[2021-07-02 11:52] VITALS: BP 150/98
[2021-07-02 15:29] VITALS: BP 156/94
[2021-07-02 16:53] LABS: BUN 16 mg/dl (7-24); CHLORIDE 120 mmol/L (98-107); CREATININE 1.21 mg/dL (0.70-1.30); POTASSIUM 3.4 mmol/L (3.5-5.1); SODIUM 149 mmol/L (136-145)
[2021-07-02 20:00] VITALS: BP 141/75
[2021-07-03 04:00] VITALS: BP 124/82
[2021-07-03 05:08] LABS: ALBUMIN 2.1 gm/dl (3.1-4.5); BUN 10 mg/dl (7-24); CHLORIDE 121 mmol/L (98-107); CREATININE 0.95 mg/dL (0.70-1.30); POTASSIUM 3.6 mmol/L (3.5-5.1); SGOT/AST 144 IU/L (3-35); SGPT/ALT 100 U/L (12-78); SODIUM 148 mmol/L (136-145); TOTAL PROTEIN 5.7 gm/dL (6.4-8.2)
[2021-07-03 05:09] LABS: ALKALINE PHOSPHATASE 417 U/L (45-117)
[2021-07-03 06:15] LABS: BASO % 0.2 % (0.0-1.0); EOS # 0.1 10*3/uL (0.0-0.4); EOS % 2.9 % (1.0-4.0); HEMATOCRIT 38.5 % (42.0-52.0); LYMPH # 2.2 10*3/uL (1.3-4.4); LYMPH % 45.8 % (27.0-41.0); MEAN CELL VOLUME 94.6 fl (80.0-94.0); MEAN CORPUSCULAR HGB CONC 31.7 g/dl (33.0-37.0); MEAN PLATELET VOLUME 9.8 fl (9.6-12.3); MONO # 0.3 10*3/uL (0.1-1.0); NEUT # 2.1 10*3/uL (2.3-7.9); NEUT % 43.7 % (47.0-73.0); PLATELET COUNT AUTOMATED 299 10*3/uL (130-400); RED BLOOD COUNT 4.07 10*6/uL (4.50-5.90); RED CELL DISTRI WIDTH 14.6 % (0-14.5); WHITE BLOOD COUNT 4.9 10*3/uL (4.8-10.8)
[2021-07-03 08:00] VITALS: BP 134/78
[2021-07-03 12:00] VITALS: BP 146/89
[2021-07-03 16:00] VITALS: BP 136/94
[2021-07-03 20:00] VITALS: BP 105/72
[2021-07-04] VITALS (7 sets, daily range): BP systolic 87–140; BP diastolic 54–81
[2021-07-04 08:50] LABS: BASO % 0.2 % (0.0-1.0); EOS # 0.2 10*3/uL (0.0-0.4); EOS % 2.1 % (1.0-4.0); HEMATOCRIT 44.9 % (42.0-52.0); LYMPH # 2.5 10*3/uL (1.3-4.4); LYMPH % 29.5 % (27.0-41.0); MEAN CELL VOLUME 94.9 fl (80.0-94.0); MEAN CORPUSCULAR HGB 29.4 pg (27.0-31.0); MEAN PLATELET VOLUME 9.3 fl (9.6-12.3); MONO # 0.6 10*3/uL (0.1-1.0); MONO % 6.9 % (3.0-9.0); NEUT # 5.1 10*3/uL (2.3-7.9); NEUT % 60.7 % (47.0-73.0); PLATELET COUNT AUTOMATED 332 10*3/uL (130-400); RED BLOOD COUNT 4.73 10*6/uL (4.50-5.90); RED CELL DISTRI WIDTH 14.6 % (0-14.5); WHITE BLOOD COUNT 8.4 10*3/uL (4.8-10.8)
[2021-07-04 09:01] LABS: BUN 16 mg/dl (7-24); CHLORIDE 114 mmol/L (98-107); CREATININE 1.23 mg/dL (0.70-1.30); POTASSIUM 4.4 mmol/L (3.5-5.1); SODIUM 146 mmol/L (136-145)
[2021-07-05] VITALS: BP 122/86
[2021-07-05 04:00] VITALS: BP 141/97
[2021-07-05 08:00] VITALS: BP 113/84
[2021-07-05 12:00] VITALS: BP 119/87
[2021-07-05] MEDS ORDERED: ZESTRIL10 MG PO (12:52)
[2021-07-05] MEDS ORDERED: LIPITOR80 MG PO (12:52)
[2021-07-05] MEDS ORDERED: VITAMIN D3125 MC1 PO (12:52)
[2021-07-05] MEDS ORDERED: HUMALOG100 UNIT/2 SC (12:52)
[2021-07-05] MEDS ORDERED: KEPPRA500 MG PO (12:52)
[2021-07-05] MEDS ORDERED: LEXAPRO10 MG PO (12:52)
[2021-07-05] MEDS ORDERED: DOXYCYCLINE HY100 M3 PO (12:52)
[2021-07-05] MEDS ORDERED: LANTUS SOL100 UNIT/1 SC (12:52)
== END 2021-07-05 13:15 | disposition home or self-care (01) | DRG 871 ==
LOC: ED 07:03 → EDHOLD 08:05 → ICCU 08:05
PROVIDERS: Emergency Medicine; Internal Medicine; ADMIT Family Medicine; ATTEND Family Medicine
DX: A41.9 Sepsis, unspecified organism (principal); E10.10 Type 1 diabetes mellitus with ketoacidosis without coma; N17.0 Acute kidney failure with tubular necrosis; J69.0 Pneumonitis due to inhalation of food and vomit; E44.0 Moderate protein-calorie malnutrition; E87.5 Hyperkalemia; E83.41 Hypermagnesemia; E10.49 Type 1 diabetes mellitus with other diabetic neurological complication; K21.9 Gastro-esophageal reflux disease without esophagitis; I95.89 Other hypotension; E86.1 Hypovolemia; D75.839 Thrombocytosis, unspecified; F32.A Depression, unspecified; I10 Essential (primary) hypertension; Z79.4 Long term (current) use of insulin; Z82.49 Family history of ischemic heart disease and other diseases of the circulatory system; Z86.73 Personal history of transient ischemic attack (TIA), and cerebral infarction without residual deficits

== ENCOUNTER 2021-07-14 04:06 | Emergency (ER) | payer OTHER ==
[~2021-07-14] VITALS: Wt 48.5 kg
[~2021-07-14 04:06] MED LIST changes: +LEXAPRO10 MG PO; +LIPITOR80 MG PO; +VITAMIN D3125 MC1 PO
[2021-07-14 04:44] LABS: BASO % 0.2 % (0.0-1.0); EOS # 0.2 10*3/uL (0.0-0.4); EOS % 1.2 % (1.0-4.0); HEMATOCRIT 31.8 % (42.0-52.0); LYMPH # 3.4 10*3/uL (1.3-4.4); LYMPH % 19.5 % (27.0-41.0); MEAN CELL VOLUME 91.6 fl (80.0-94.0); MEAN CORPUSCULAR HGB 30.3 pg (27.0-31.0); MEAN PLATELET VOLUME 9.6 fl (9.6-12.3); MONO % 5.9 % (3.0-9.0); NEUT # 12.6 10*3/uL (2.3-7.9); NEUT % 72.1 % (47.0-73.0); PLATELET COUNT AUTOMATED 412 10*3/uL (130-400); RED BLOOD COUNT 3.47 10*6/uL (4.50-5.90); RED CELL DISTRI WIDTH 14.5 % (0-14.5); WHITE BLOOD COUNT 17.4 10*3/uL (4.8-10.8)
[2021-07-14 05:00] LABS: ALBUMIN 2.5 gm/dl (3.1-4.5); ALKALINE PHOSPHATASE 620 U/L (45-117); BUN 15 mg/dl (7-24); CHLORIDE 101 mmol/L (98-107); CREATININE 1.15 mg/dL (0.70-1.30); ETHYL ALCOHOL < 3.0 mg/dl (<3); POTASSIUM 3.8 mmol/L (3.5-5.1); SGOT/AST 182 IU/L (3-35); SGPT/ALT 263 U/L (12-78); SODIUM 133 mmol/L (136-145); TOTAL PROTEIN 6.3 gm/dL (6.4-8.2)
[2021-07-14 08:43] VITALS: BP 136/80
[2021-07-14 10:24] LABS: BILIRUBIN Negative (Negative); BLOOD Negative (Negative); CLARITY Clear (Clear); COLOR Yellow (Yellow); GLUCOSE 3+ (Negative); KETONE Negative (Negative); LEUKO ESTERASE Negative (Negative); NITRITE Negative (Negative); PH 6.5 (4.5-8.0); SPECIFIC GRAVITY 1.015 (1.001-1.030); UROBILINOGEN 0.2 E.U./dl (0.0-1.0)
[2021-07-14 10:33] LABS: WBC 21-30 wbc/hpf (0-5)
[2021-07-14 10:34] LABS: HYALINE CAST 0-2; RBC 0-2 rbc/hpf (0-2)
[2021-07-14 10:38] LABS: URINE AMPHETAMINES < 1000 (1000ng/ml); URINE BARBITURATES < 200 (200ng/ml); URINE BENZODIAZEPINES < 200 (200ng/ml); URINE CANNABINOIDS (THC) < 50 (50ng/ml); URINE COCAINE < 300 (300ng/ml); URINE METHADONE < 300 (300ng/ml); URINE OPIATES < 300 (300ng/ml); URINE PHENCYCLIDINE < 25 (25ng/ml)
[2021-07-14] MEDS ORDERED: LEVOFLOXACIN750 M2 PO (10:51)
== END 2021-07-14 11:45 | disposition home or self-care (01) ==
LOC: ED 04:06
PROVIDERS: Internal Medicine
DX: J18.9 Pneumonia, unspecified organism (principal); Z90.49 Acquired absence of other specified parts of digestive tract; Z90.89 Acquired absence of other organs; Z98.890 Other specified postprocedural states; Z87.891 Personal history of nicotine dependence

== ENCOUNTER 2022-07-04 17:29 | Inpatient (IN) | payer MEDICAID ==
[~2022-07-04] VITALS: Ht 165.1 cm; Wt 70.3 kg
[2022-07-04 17:43] VITALS: BP 153/99
[2022-07-04 18:23] LABS: BASO % 0.3 % (0.0-1.0); EOS # 0.1 10*3/uL (0.0-0.4); EOS % 0.6 % (1.0-4.0); HEMATOCRIT 44.5 % (42.0-52.0); LYMPH # 1.9 10*3/uL (1.3-4.4); MEAN CELL VOLUME 88.6 fl (80.0-94.0); MEAN CORPUSCULAR HGB 29.5 pg (27.0-31.0); MEAN CORPUSCULAR HGB CONC 33.3 g/dl (33.0-37.0); MEAN PLATELET VOLUME 10.1 fl (9.6-12.3); MONO # 0.8 10*3/uL (0.1-1.0); MONO % 8.2 % (3.0-9.0); NEUT # 7.2 10*3/uL (2.3-7.9); NEUT % 71.6 % (47.0-73.0); PLATELET COUNT AUTOMATED 331 10*3/uL (130-400); RED BLOOD COUNT 5.02 10*6/uL (4.50-5.90); RED CELL DISTRI WIDTH 12.5 % (0-14.5); WHITE BLOOD COUNT 10.1 10*3/uL (4.8-10.8)
[2022-07-04 18:34] LABS: ACT PARTIAL THROMBO TIME 24.3 SECONDS (20.0-32.1)
[2022-07-04 18:38] LABS: ALKALINE PHOSPHATASE 216 U/L (46-116); BUN 41 mg/dl (9-23); CHLORIDE 99 mmol/L (98-107); LIPASE 60 U/L (12-53); POTASSIUM 3.9 mmol/L (3.4-5.1); SGPT/ALT 145 U/L (10-49)
[2022-07-04 19:15] LABS: BILIRUBIN Negative (Negative); BLOOD Trace-Lysed (Negative); CLARITY Clear (Clear); COLOR Yellow (Yellow); GLUCOSE Negative (Negative); KETONE Negative (Negative); LEUKO ESTERASE Negative (Negative); NITRITE Negative (Negative); PH 5.5 (4.5-8.0); UROBILINOGEN 0.2 E.U./dl (0.0-1.0)
[2022-07-04 19:31] LABS: BACTERIA 1+; RBC 0-2 rbc/hpf (0-2)
[2022-07-04 22:25] VITALS: BP 131/79
[2022-07-05 09:00] VITALS: BP 133/74
== END 2022-07-05 08:57 | disposition left against medical advice (07) | DRG 391 ==
LOC: ED 17:29 → 5E 21:44 → EDHOLD 21:44 → 5E 22:16
PROVIDERS: Emergency Medicine; ADMIT Internal Medicine; ATTEND Internal Medicine
DX: K21.00 Gastro-esophageal reflux disease with esophagitis, without bleeding (principal); N17.0 Acute kidney failure with tubular necrosis; E87.1 Hypo-osmolality and hyponatremia; Z20.822 Contact with and (suspected) exposure to COVID-19; F17.210 Nicotine dependence, cigarettes, uncomplicated; G89.29 Other chronic pain; M54.59 Other low back pain; E10.65 Type 1 diabetes mellitus with hyperglycemia; E10.40 Type 1 diabetes mellitus with diabetic neuropathy, unspecified; F12.10 Cannabis abuse, uncomplicated; Z53.29 Procedure and treatment not carried out because of patient's decision for other reasons; Z90.49 Acquired absence of other specified parts of digestive tract; Z90.89 Acquired absence of other organs; Z83.3 Family history of diabetes mellitus; Z82.49 Family history of ischemic heart disease and other diseases of the circulatory system; Z80.9 Family history of malignant neoplasm, unspecified; Z71.6 Tobacco abuse counseling; Z86.73 Personal history of transient ischemic attack (TIA), and cerebral infarction without residual deficits; Z79.899 Other long term (current) drug therapy

== ENCOUNTER 2022-12-03 17:54 | Emergency (ER) | payer OTHER ==
[~2022-12-03] VITALS: Wt 68.0 kg
[2022-12-03 18:21] VITALS: BP 00/00
== END 2022-12-03 21:42 ==
LOC: ED 17:54
DX: I46.9 Cardiac arrest, cause unspecified (principal); F32.A Depression, unspecified; K21.9 Gastro-esophageal reflux disease without esophagitis; I10 Essential (primary) hypertension; E11.40 Type 2 diabetes mellitus with diabetic neuropathy, unspecified; Z79.4 Long term (current) use of insulin; Z98.890 Other specified postprocedural states; Z90.89 Acquired absence of other organs; Z90.49 Acquired absence of other specified parts of digestive tract; F14.10 Cocaine abuse, uncomplicated; F12.10 Cannabis abuse, uncomplicated; F17.200 Nicotine dependence, unspecified, uncomplicated; F15.10 Other stimulant abuse, uncomplicated